=== PATIENT | female | born 1960 | race Caucasian/White ===

== ENCOUNTER 2018-11-24 21:20 | Inpatient (IN) | payer OTHER ==
[2018-11-24] MEDS ORDERED: ASPIRIN 81 MG CHEWABLE TABLETS PO ONE (21:45)
--- NOTE | 2018-11-24 21:55 | PDOC ---
History of Present Illness - General Chief Complaint: Shortness of Breath Stated Complaint: SOB Time Seen by Provider: 11/24/18 21:43 - History of Present Illness Initial Comments: 58 year old female with history of "tachycardia" presenting with sudden onset shortness of breath and respiratory difficulty of sudden onset 30 minutes before presentation. Patient is from [facility] visiting for the past month and had no issues all day until these symptoms started. According to friend at bedside she began breathing rapidly and having palpitations. Denies any pain anywhere but kept clutching her epigastric region on exam. She has family members with heart problems but is not sure which ones. The only medication she is on is sedoxil (Mexazolam) for her "tachcyardia". Denies any recent fevers, chills nausea vomiting diarrhea or other symptoms. 11/24/18 21:50 Past History - Past Medical History Allergies/Adverse Reactions: Allergies Allergy/AdvReac Type Severity Reaction Status Date / Time No Known Allergies Allergy Verified 11/24/18 21:41 - Suicide/Smoking/Psychosocial Hx Smoking History: Never smoked Have you smoked in the past 12 months: No Information on smoking cessation initiated: No Hx Alcohol Use: No Drug/Substance Use Hx: No Review of Systems - Review of Systems Able to Perform ROS?: No (Acutel yin distress) *Physical Exam - Vital Signs Last Vital Signs Temp Pulse Resp BP Pulse Ox 96.0 F L 154 H 32 H 154/105 H 98 11/24/18 21:20 11/24/18 21:20 11/24/18 21:20 11/24/18 21:20 11/24/18 21:40 - Physical Exam General Appearance: Yes: Nourished, Appropriately Dressed, Apparent Distress, Moderate Distress (moderate respiratory distress) HEENT: positive: EOMI, FRANCIE. negative: Normal ENT Inspection (erythematous maxillay skin with central pallor on the nose and face), Normal Voice ( difficulty breathing acutely) Neck: positive: Trachea midline, Normal Thyroid, Supple. negative: Tender, Rigid Respiratory/Chest: positive: Respiratory Distress, Accessory Muscle Use, Labored Respiration, Rapid RR, Crackles. negative: Chest Tender, Lungs Clear, Normal Breath Sounds Cardiovascular: positive: Regular Rhythm, Tachycardia. negative: Regular Rate Gastrointestinal/Abdominal: positive: Normal Bowel Sounds, Flat, Soft. negative : Tender Lymphatic: negative: Adenopathy, Tenderness Musculoskeletal: positive: Normal Inspection. negative: Decreased Range of Motion Extremity: positive: Normal Capillary Refill, Normal Inspection, Normal Range of Motion. negative: Tender Integumentary: positive: Normal Color, Dry, Warm Neurologic: positive: Fully Oriented, Alert, Normal Mood/Affect, Normal Response , Motor Strength 5/5 Moderate Sedation - Procedure Monitoring Vital Signs: Procedure Monitoring Vital Signs Temperature 96.0 F L 11/24/18 21:20 Pulse Rate 154 H 11/24/18 21:20 Respiratory Rate 32 H 11/24/18 21:20 Blood Pressure 154/105 H 11/24/18 21:20 O2 Sat by Pulse Oximetry (%) 98 11/24/18 21:40 ED Treatment Course - RADIOLOGY Radiology Studies Ordered: Category Date Time Status CHEST X-RAY PORTABLE* [RAD] Stat Radiology 11/24/18 21:43 Ordered Medical Decision Making - Medical Decision Making Patianita with sudden onset SOB, dyspnea, bilateral crackles, hypoxic to 79 on 15 L NC, hypertensive to 190s systolic. Niraj was BiPaped within 15 minutes of presenting got BiPaped and immediately improved her O2 to upper 90s and decreased pressure to 140s systolic. CXR demonstrating fluid overload, will give 40 IV lasix. Patient signed out to Dr. Booker in stable condition pending admission to ICU likely. 11/24/18 22:15 *DC/Admit/Observation/Transfer Diagnosis at time of Disposition: Acute respiratory failure with hypoxia Acute CHF Qualifiers: Heart failure type: unspecified Qualified Code(s): I50.9 - Heart failure, unspecified - Discharge Dispostion Condition at time of disposition: Guarded Decision to Admit order: Yes - Referrals - Patient Instructions - Post Discharge Activity
[2018-11-24] MEDS ORDERED: ASPIRIN 81 MG CHEWABLE TABLETS ONE (22:24)
--- NOTE | 2018-11-24 22:25 | PDOC ---
*Physical Exam - Vital Signs Last Vital Signs Temp Pulse Resp BP Pulse Ox 97.6 F 154 H 32 H 154/105 H 98 11/24/18 22:01 11/24/18 21:20 11/24/18 21:20 11/24/18 21:20 11/24/18 21:40 ED Treatment Course - LABORATORY CBC & Chemistry Diagram: 11/24/18 22:22 11/24/18 22:22 Medical Decision Making - Medical Decision Making 11/24/18 22:25 The patient was signed out to me by Dr. Fernandez, day team. The patient is a 67F with a PMH of anxiety who presents to the ER with SOB, noted to be tachycardic. Concern for CHF. Pt currently on bipap but remains tachycardic. Initial BP in 190's, currently 130-140. Will admit after CMP is repeated. 11/24/18 23:48 Trop 0.17, likely 2/2 to demand. BNP elevated. D-dimer in 1999's, likely 2/2 CHF exacerbation. Pt endorsed to Dr. Pacheco for admission. *DC/Admit/Observation/Transfer Diagnosis at time of Disposition: Acute respiratory failure with hypoxia Acute CHF Qualifiers: Heart failure type: unspecified Qualified Code(s): I50.9 - Heart failure, unspecified - Discharge Dispostion Condition at time of disposition: Guarded Decision to Admit order: Yes - Referrals - Patient Instructions - Post Discharge Activity
[2018-11-24] MEDS ORDERED: FUROSEMIDE 40 MG/4 ML INJECTABLE VIAL IVPUSH ONE (22:29)
--- NOTE | 2018-11-24 22:32 | PDOC ---
Attending Attestation - [facility] HPI: 11/24/18 23:18 The patient is a 58 year old female with no significant past medical history who presents to the emergency department with a sudden onset of shortness of breath today. The patient reports that she is visiting from [place] and, today she came in secondary to a sudden onset of respiratory distress. The patient was placed on bipap on arrival to the ED. Prior medical history could not be recorded secondary to patient condition. Documentation prepared by Zacarias Rojas, acting as medical insurance verifier for Orly Genao MD. - Physicial Exam PE: 11/24/18 23:18 GENERAL:(+)anxious and is respiratory distress, Hypoxic (80s), cannot breathe Well developed, well nourished. Awake and alert. HEENT: Normocephalic, atraumatic. PERRLA, EOMI. No conjunctival pallor. Sclera are non- icteric. Moist mucous membranes. Oropharynx is clear. NECK: Supple. Full ROM. No JVD. Carotid pulses 2+ and symmetric, without bruits. No thyromegaly. No lymphadenopathy. CARDIOVASCULAR:(+)tachy 140s Regular rhythm. No murmurs, rubs, or gallops. Distal pulses are 2+ and symmetric. PULMONARY: (+)crackles and rales bilaterally. No wheezing, rales or rhonchi. ABDOMINAL: Soft. Non-tender. Non-distended. No rebound or guarding. No organomegaly. Normoactive bowel sounds. MUSCULOSKELETAL Normal range of motion at all joints. No bony deformities or tenderness. No CVA tenderness. EXTREMITIES: No cyanosis. No clubbing. No edema. No calf tenderness. SKIN: Warm and dry. Normal capillary refill. No rashes. No jaundice. NEUROLOGICAL: Alert, awake, appropriate. Cranial nerves 2-12 intact. No deficits to light touch and temperature in face, upper extremities and lower extremities. No motor deficits in the in face, upper extremities and lower extremities. Normoreflexic in the upper and lower extremities. Normal speech. Toes are down- going bilaterally. Gait is normal without ataxia. PSYCHIATRIC: Cooperative. Good eye contact. Appropriate mood and affect. - Critical Care Time Total Critical Care Time: 60 Critical Care Statement: The care of this patient involved high complexity decision making to prevent further life threatening deterioration of the patient 's condition and/or to evaluate & treat vital organ system(s) failure or risk of failure. <Zacarias Rojas - Last Filed: 11/24/18 23:18> - Resident Resident Name: Dillan Fernandez - ED Attending Attestation I have performed the following: I have examined & evaluated the patient, The case was reviewed & discussed with the resident, I agree w/resident's findings & plan, Exceptions are as noted - HPI HPI: 11/24/18 22:31 58-year-old female visiting from [place] experienced a sudden shortness breath with acute respiratory distress and was quickly placed on BiPAP after coming to the emergency department Normocephalic/atraumatic. Neck supple Lungs ++,rales crackles CVS tachycardia Abdomen soft Extremities no pitting edema, no clubbing, no cyanosis. Skin warm and dry. Neuro she is alert and oriented 3, moving all extremities. Psych slightly anxious - Medical Decision Making 11/24/18 23:33 This 58 yo female flew from [facility] this Friday and dev sudden respiratory distress this evening and presented hypoxic and tachypnic Patient states she doesn't have any significant medical history except an episode of tachycardia 2 months ago and [place]. She states that at time she saw a heart doctor History of smoking cigarettes for about 45 years. Past surgical history none The patient was in resp distress with rales and placed on BiPAP immediately upon arrival. Her symptoms greatly improved and She was able to converse and answer questions appropriately pt to be admitted to tele 11/25/18 01:16 trop 0.17, will repeat dimer >4000 and will r/o PE with cta of chest 11/25/18 01:18 repeat ekg is 104 bpm with pvc 11/25/18 02:23 cta chest NEGATIVE FOR PE however there are infiltrates,congestion <Orly Genao - Last Filed: 11/25/18 02:29>
[2018-11-24 22:34] LABS: CARBOXYHEMOGLOBIN 1.7 gm% (0.5-2.0)
[2018-11-24 22:46] LABS: BASO % 0.8 % (0-2.0); HEMATOCRIT 39.9 % (32.4-45.2); HEMOGLOBIN 13.5 GM/dL (10.7-15.3); LYMPH % 28.2 % (8-40); MCH 31.1 pg (25.7-33.7); MCHC 33.8 g/dl (32.0-36.0); MEAN CELL VOLUME 92.1 fl (80-96); MEAN PLT VOLUME 10.9 fl (7.5-11.1); PLATELET COUNT 268 K/MM3 (134-434); RBC 4.33 M/mm3 (3.60-5.2); RDW 15.7 % (11.6-15.6); WHITE BLOOD COUNT 7.5 K/mm3 (4.0-10.0)
[2018-11-24 23:16] LABS: ARTERIAL BLD GAS O2 SATURATION 98.1 % (90-98.9); ARTERIAL BLOOD GAS BASE EXCESS -8.5 meq/l (-2-2); ARTERIAL BLOOD GAS PCO2 35.9 mmHg (35-45); ARTERIAL BLOOD GAS pH 7.29 (7.35-7.45)
[2018-11-24 23:20] LABS: INR 1.17 (0.83-1.09); PROTHROMBIN TIME (PATIENT) 13.8 SEC (9.7-13.0)
[2018-11-24 23:22] LABS: ALBUMIN 3.5 g/dl (3.4-5.0); ALK PHOS 150 U/L (45-117); ANION GAP 13 MMOL/L (8-16); BILIRUBIN,TOTAL 0.3 mg/dL (0.2-1); BLOOD UREA NITROGEN 23 mg/dL (7-18); CALCIUM 8.3 mg/dL (8.5-10.1); CHLORIDE 107 mmol/L (98-107); CO2 20 mmol/L (21-32); CREATININE 1.2 mg/dL (0.55-1.3); GLUCOSE,RANDOM 226 mg/dL (74-106); MAGNESIUM 1.9 mg/dL (1.8-2.4); N-TERMINAL BNP 4451.6 pg/ml (5-125); PHOSPHOROUS 6.2 mg/dL (2.5-4.9); POTASSIUM 3.8 mmol/L (3.5-5.1); SGOT/AST 132 U/L (15-37); SGPT/ALT 96 U/L (13-61); SODIUM 140 mmol/L (136-145); TOT PROT 6.8 g/dl (6.4-8.2)
[2018-11-24] MEDS ORDERED: FUROSEMIDE 40 MG/4 ML INJECTABLE VIAL ONE (23:24)
[2018-11-25] MEDS ORDERED: FUROSEMIDE 40 MG/4 ML INJECTABLE VIAL IVPUSH ONE (00:49)
--- NOTE | 2018-11-25 01:18 | HP ---
CHIEF COMPLAINT: SOB PCP: none HISTORY OF PRESENT ILLNESS: The patient is a 58 yo brazilian speaking f w/ PMH "tachycardia" who comes into the ED c/o a 2 day history of SOB. The patient recently came to the from [place] for vacation this past Friday. Last night, the patient experienced an acute onset of SOB associated with palpitations. These symptoms became progressively worse overnight and into today, which prompted her to come into the ER for evaluation. The patient had a similar episode of this SOB approx. 1 month ago in [place]. At that time, she went to see a escrow secretary, who evaluated her and told her everything was normal. The patient does not recall which tests were done at that time and was not started on any new medications. Patient takes Mexazolam for her "tachycardia" and no other medications. Patient denies chest pain, diaphoresis, abdominal pain, fever, chills. In the ED, patient was found to be in severe respiratory distress and was placed on BIpap. EKG sowed sinus tachycardia at 133 w/ St depressions and t wave inversions. No previous EKGs exist for comparison. Trop was .17, BNP was 4451, DDimer was 2082. 20mg Lasix IV was given with approx. 350cc output. The above history was obtained with assistance of the patient's friend at bedside and [employer] senior devops engineer #[id number] Recent Travel: see HPI PAST MEDICAL HISTORY: see HPI PAST SURGICAL HISTORY: Right knee surgery for OA Social History: Smokin year smoker Alcohol: denies Drugs: denies Family History: Multiple family members with heart problems, details unknown Allergies No Known Allergies Allergy (Verified 11/24/18 21:41) HOME MEDICATIONS: Home Medications Medication Instructions Recorded Unobtainable 11/24/18 REVIEW OF SYSTEMS CONSTITUTIONAL: Absent: fever, chills, diaphoresis, generalized weakness, malaise, loss of appetite, weight change HEENT: Absent: rhinorrhea, nasal congestion, throat pain, throat swelling, difficulty swallowing, mouth swelling, ear pain, eye pain, visual changes CARDIOVASCULAR: Absent: chest pain, syncope, palpitations, irregular heart rate, lightheadedness , peripheral edema RESPIRATORY: Absent: dyspnea with exertion, orthopnea, wheezing, stridor, hemoptysis GASTROINTESTINAL: Absent: abdominal pain, abdominal distension, nausea, vomiting, diarrhea, constipation, melena, hematochezia GENITOURINARY: Absent: dysuria, frequency, urgency, hesitancy, hematuria, flank pain, genital pain MUSCULOSKELETAL: Absent: myalgia, arthralgia, joint swelling, back pain, neck pain SKIN: Absent: rash, itching, pallor HEMATOLOGIC/IMMUNOLOGIC: Absent: easy bleeding, easy bruising, lymphadenopathy, frequent infections ENDOCRINE: Absent: unexplained weight gain, unexplained weight loss, heat intolerance, cold intolerance NEUROLOGIC: Absent: headache, focal weakness or paresthesias, dizziness, unsteady gait, seizure, mental status changes, bladder or bowel incontinence PSYCHIATRIC: Absent: anxiety, depression, suicidal or homicidal ideation, hallucinations. PHYSICAL EXAMINATION Vital Signs - 24 hr 11/24/18 11/24/18 11/24/18 21:20 21:40 22:01 Temperature 96.0 F L 97.6 F Pulse Rate 154 H Respiratory 32 H Rate Blood Pressure 154/105 H O2 Sat by Pulse 88 L 98 Oximetry (%) 11/25/18 00:14 Temperature Pulse Rate Respiratory Rate Blood Pressure O2 Sat by Pulse 100 Oximetry (%) GENERAL: Awake, alert, and fully oriented, in no acute distress. Pt on BiPap HEAD: Normal with no signs of trauma. EYES: Pupils equal, round and reactive to light, extraocular movements intact, sclera anicteric, conjunctiva clear. No lid lag. EARS, NOSE, THROAT: Ears normal, nares patent, oropharynx clear without exudates. Moist mucous membranes. NECK: Normal range of motion, supple without lymphadenopathy, JVD, or masses. LUNGS: There are decreased breath sounds in the mid lung martin and bases as well as crackles at the bases. HEART: Regular rate and rhythm, normal S1 and S2 without murmur, rub or gallop. ABDOMEN: Soft, nontender, not distended, normoactive bowel sounds, no guarding, no rebound, no masses. No hepatomegaly or splenomegaly. LOWER EXTREMITIES: 2+ pulses, warm, well-perfused. No calf tenderness. No peripheral edema. NEUROLOGICAL: Cranial nerves II-X intact. Normal speech. SKIN: Warm, dry, normal turgor, no rashes or lesions noted, normal capillary refill. Laboratory Results - last 24 hr 11/24/18 11/24/18 11/24/18 21:44 22:12 22:22 WBC 7.5 RBC 4.33 Hgb 13.5 Hct 39.9 MCV 92.1 MCH 31.1 MCHC 33.8 RDW 15.7 H Plt Count 268 MPV 10.9 Absolute Neuts (auto) 4.9 Neutrophils % 65.0 Lymphocytes % 28.2 Monocytes % 4.0 Eosinophils % 2.0 Basophils % 0.8 Nucleated RBC % 0 PT with INR INR D-Dimer Anticoagulation Therapy No Result Required. Puncture Site Left radial ABG pH 7.29 L ABG pCO2 at Pt Temp 35.9 ABG pO2 at Pt Temp 128.0 H ABG HCO3 16.8 L ABG O2 Sat (Measured) 98.1 ABG O2 Content 17.6 ABG Base Excess -8.5 L Vitaliy Test No Result Required. Carboxyhemoglobin 1.7 Methemoglobin 0.0 L O2 Delivery Device Bipap Oxygen Flow Rate 100% Vent Mode S/t Vent Rate No Result Required. Mechanical Rate No Result Required. Pressure Support Vent No Result Required. Sodium Potassium Chloride Carbon Dioxide Anion Gap BUN Creatinine Creat Clearance w eGFR Random Glucose Calcium Phosphorus Magnesium Total Bilirubin AST ALT Alkaline Phosphatase Troponin I B-Natriuretic Peptide Total Protein Albumin 11/24/18 11/24/18 11/24/18 22:22 22:22 22:22 WBC RBC Hgb Hct MCV MCH MCHC RDW Plt Count MPV Absolute Neuts (auto) Neutrophils % Lymphocytes % Monocytes % Eosinophils % Basophils % Nucleated RBC % PT with INR 13.80 H INR 1.17 H D-Dimer 2082 H Anticoagulation Therapy Puncture Site ABG pH ABG pCO2 at Pt Temp ABG pO2 at Pt Temp ABG HCO3 ABG O2 Sat (Measured) ABG O2 Content ABG Base Excess Vitaliy Test Carboxyhemoglobin Methemoglobin O2 Delivery Device Oxygen Flow Rate Vent Mode Vent Rate Mechanical Rate Pressure Support Vent Sodium 140 Potassium 3.8 Chloride 107 Carbon Dioxide 20 L Anion Gap 13 BUN 23 H Creatinine 1.2 Creat Clearance w eGFR 45.98 Random Glucose 226 H Calcium 8.3 L Phosphorus 6.2 H Magnesium 1.9 Total Bilirubin 0.3 AST 132 H ALT 96 H Alkaline Phosphatase 150 H Troponin I 0.17 H B-Natriuretic Peptide 4451.6 H Total Protein 6.8 Albumin 3.5 ASSESSMENT/PLAN: The patient is a 58 yo f w/ PMH tachycardia who comes into the the ED c/o acute onset SOB and palpitations. #SOB and palpitations; etiology unclear at this time. Possible PE vs ACS vs CHF -pt taken off BiPap during interview, saturating ~92 on 3LNC -Patient recently on flight from [place] and p/w hypoxia and tachycardia w/ positive D-Dimer; suspicious for PE -STAT CTA ordered; prelim read shows no PE, but ground glass opacities c/w congestion -first trop .17 in ED. EKG at that time tachy with ST/T changes -rpt EKG shows slower rate with similar ST/T changes -Trend trop/EKG to r/o ACS -echo in AM to eval for CHF -Patient mildly improved w/ 20mg lasix; will diurese further with 40mg lasix IV and monitor response by Vincent -Patient appears to have flash pulmonary edema based of of presentation, CXR and lack of pedal edema on exam; this could either be due to PE or acute NM. Since confirmatory tests pending, will treat empirically with heparin GTT at this time. -Cards, Pulm consult in AM #elevated creatinine, elevated phos and random glucose 226 concerning for DM -will obtain A1c -BGM, ISS ACHS for now #elevated BP on arrival likely 2/2 stress/SOB -improved after oxygenation and Lasix #FEN -no fluids indicated -lytes as above; replete PRN -sodium controlled diet #Prophy -Heparin GTT #dispo -admit tele Visit type - Emergency Visit Emergency Visit: Yes ED Registration Date: 11/24/18 Care time: The patient presented to the Emergency Department on the above date and was hospitalized for further evaluation of their emergent condition. - New Patient This patient is new to me today: Yes Date on this admission: 11/25/18 - Critical Care Critical Care patient: No
--- NOTE | 2018-11-25 01:20 | PN ---
Teaching Attending Note Name of Resident: Josias Pacheco ATTENDING PHYSICIAN STATEMENT I saw and evaluated the patient. I reviewed the resident's note and discussed the case with the resident. I agree with the resident's findings and plan as documented. SUBJECTIVE: Patient is a 58 year old woman with PMH of "tachycardia" presenting with sudden onset shortness of breath and respiratory difficulty of sudden onset 30 minutes before presentation. Patient is from [facility] for the past month and had no issues all day until these symptoms started. According to friend at bedside she began breathing rapidly and having palpitations. Denies any pain anywhere but kept clutching her epigastric region on exam. She has family members with heart problems but is not sure which ones. The only medication she is on is sedoxil (Mexazolam) for her "tachcyardia". Denies any recent fevers, chills nausea vomiting diarrhea or other symptoms. On arrival in the ER her pulse was 154 and based on respiratory distress, she was started on Bipap. By the time i saw her her HR was down to less than 90 and she was no longer in respiratory distress so Bipap is being stopped. OBJECTIVE: Alert Vital Signs Period Temp Pulse Resp BP Sys/Jeffries Pulse Ox Last 24 Hr 96.0 F-97.6 F 154 32 154/105 88-100 HEENT: No Jaundice, eye redness or discharge, PERRLA, EOMI. Normocephalic, atraumatic. External ears are normal and hearing is grossly intact. No nasal discharge. Neck: Supple, nontender. No palpable adenopathy or thyromegaly. No JVD Chest: Good effort. Diffuse rhonchi. Clear to percussion. Heart: Regular. No S3, rub or murmur Abdomen: Not distended, soft, nontender and no HSM. No rebound or guarding. Normoactive bowel sounds. Ext: Peripheral pulses intact. No leg edema. Skin: Warm and dry. No petechiae, rash or ecchymosis. Neuro: Alert. Oriented x3. CN 2-12 grossly intact. Sensation grossly intact in all four extremities and DTR are symmetric. Home Medications Medication Instructions Recorded Unobtainable 11/24/18 Abnormal Lab Results 11/24/18 11/24/18 11/24/18 21:44 22:12 22:22 RDW 15.7 H PT with INR INR D-Dimer ABG pH 7.29 L ABG pO2 at Pt Temp 128.0 H ABG HCO3 16.8 L ABG Base Excess -8.5 L Methemoglobin 0.0 L Carbon Dioxide BUN Random Glucose Calcium Phosphorus AST ALT Alkaline Phosphatase Troponin I B-Natriuretic Peptide 11/24/18 11/24/18 11/24/18 22:22 22:22 22:22 RDW PT with INR 13.80 H INR 1.17 H D-Dimer 2082 H ABG pH ABG pO2 at Pt Temp ABG HCO3 ABG Base Excess Methemoglobin Carbon Dioxide 20 L BUN 23 H Random Glucose 226 H Calcium 8.3 L Phosphorus 6.2 H AST 132 H ALT 96 H Alkaline Phosphatase 150 H Troponin I 0.17 H B-Natriuretic Peptide 4451.6 H ASSESSMENT AND PLAN: 1. Respiratory failure - CXR shows bilateral fluffy infiltrates and cardiomegaly. Initial EKG shows sinus tachycardia with ST depression in leads III, aVF, V5 and 6. Findings suggest flash pulmonary edema due acute CHF, acute KS or PE. She made about 400 ml of urine with 20 mg of IV lasix. Now comfortable off Bipap on nasal canula oxygen. Will repeat EKG, trend troponin, check TFT, get CTPA and give 40 mg of IV lasix (monitor urine output) and get ECHO. Admit to telemetry to rule out ACS. Will do tests to rule out underlying DM (HbA1c) and CKD (kidney sonogram, PTH, urine protein) and repeat phosphate level. If hyperphosphatemia persists, will give phosphate binder. Urinalysis pending. 2. DVT prophylaxis - Heparin 5000u sq tid. 3. Advance directives - Full code
[2018-11-25] MEDS ORDERED: FUROSEMIDE 40 MG/4 ML INJECTABLE VIAL ONE ×2 (01:24→10:31)
[2018-11-25] MEDS ORDERED: HEPARIN NA (PORCINE) 5,000 UNITS/ML 1ML VIAL IVPUSH PRN ×6 (02:14→14:06)
[2018-11-25] MEDS ORDERED: HEPARIN - 25,000 UNIT in SODIUM CHLORIDE 495 ML IV SCH ×2 (02:15→03:00)
[2018-11-25] MEDS ORDERED: HEPARIN INFUSION - 25,000 UNITS/500 ML INFUS.BAG IVPB ONE (03:19)
[2018-11-25 04:35] LABS: URINE APPEARANCE CLEAR; URINE BILIRUBIN NEGATIVE (<2.0 mg/dL); URINE COLOR COLORLESS; URINE GLUCOSE (UA) NEGATIVE (NEGATIVE); URINE KETONE NEGATIVE (NEGATIVE); URINE LEUK ESTERASE TRACE (NEGATIVE); URINE NITRITE NEGATIVE (NEGATIVE); URINE PROTEIN NEGATIVE (NEGATIVE); URINE UROBILINOGEN NEGATIVE mg/dL (0.2-1.0)
[2018-11-25 04:37] LABS: URINE MUCUS RARE
[2018-11-25] MEDS ORDERED: HEPARIN SOD,PORK IN 0.45% NACL 25,000 UNITS/500 ML INFUS.BAG IVPB SCH (04:48)
[2018-11-25] MEDS ORDERED: ATORVASTATIN CA 80 MG TABLET (FP) PO ONE (05:20)
[2018-11-25] MEDS ORDERED: CLOPIDOGREL BISULFATE 300 MG TABLET PO ONE (05:21)
[2018-11-25 05:59] LABS: HEMOGLOBIN 13.7 GM/dL (10.7-15.3); MCH 31.4 pg (25.7-33.7); MEAN CELL VOLUME 89.6 fl (80-96); MEAN PLT VOLUME 10.2 fl (7.5-11.1); PLATELET COUNT 254 K/MM3 (134-434); RBC 4.35 M/mm3 (3.60-5.2); RDW 14.9 % (11.6-15.6); WHITE BLOOD COUNT 9.3 K/mm3 (4.0-10.0)
[2018-11-25] MEDS ORDERED: HEPARIN NA (PORCINE) 5,000 UNITS/ML 1ML VIAL SQ SCH (06:00)
[2018-11-25 06:10] LABS: INR 1.19 (0.83-1.09); PROTHROMBIN TIME (PATIENT) 14.1 SEC (9.7-13.0)
[2018-11-25 06:13] LABS: ACTIVATED PTT 50.4 SECONDS (25.2-36.5)
[2018-11-25 06:19] LABS: ANION GAP 10 MMOL/L (8-16); BLOOD UREA NITROGEN 19 mg/dL (7-18); CALCIUM 8.7 mg/dL (8.5-10.1); CHLORIDE 104 mmol/L (98-107); CO2 27 mmol/L (21-32); CREATININE 0.8 mg/dL (0.55-1.3); GLUCOSE,RANDOM 103 mg/dL (74-106); MAGNESIUM 1.9 mg/dL (1.8-2.4); PHOSPHOROUS 4.6 mg/dL (2.5-4.9); POTASSIUM 3.5 mmol/L (3.5-5.1); SODIUM 141 mmol/L (136-145)
[2018-11-25] MEDS ORDERED: CLOPIDOGREL BISULFATE 300 MG TABLET ONE (06:20)
[2018-11-25] MEDS ORDERED: HEPARIN INFUSION - 25,000 UNITS/500 ML INFUS.BAG IVPB SCH (06:30)
--- NOTE | 2018-11-25 10:23 | CON.CARD ---
Consult Consult Specialty:: Cardiology - History of Present Illness History of Present Illness: 58 year old female with history of "tachycardia" presenting with sudden onset shortness of breath and respiratory difficulty of sudden onset 30 minutes before presentation. Patient is from [facility] for the past month and had no issues all day until these symptoms started. According to friend at bedside she began breathing rapidly and having palpitations. Denies any pain anywhere but kept clutching her epigastric region on exam. She has family members with heart problems but is not sure which ones. The only medication she is on is sedoxil (Mexazolam) for her "tachcyardia". Denies any recent fevers, chills nausea vomiting diarrhea or other symptoms. 11/24/18 21:50 - History Source History Provided By: Patient, Family Member, Medical Record - Alcohol/Substance Use Hx Alcohol Use: No - Smoking History Smoking history: Never smoked Have you smoked in the past 12 months: No Home Medications - Allergies Allergies/Adverse Reactions: Allergies Allergy/AdvReac Type Severity Reaction Status Date / Time No Known Allergies Allergy Verified 11/24/18 21:41 - Home Medications Home Medications: Ambulatory Orders Omeprazole 40 mg PO BID 11/25/18 Review of Systems - Review of Systems Constitutional: reports: No Symptoms Eyes: reports: No Symptoms HENT: reports: No Symptoms Neck: reports: No Symptoms Cardiovascular: reports: Chest Pain Gastrointestinal: reports: No Symptoms Genitourinary: reports: No Symptoms Breasts: reports: No Symptoms Reported Musculoskeletal: reports: No Symptoms Integumentary: reports: No Symptoms Neurological: reports: No Symptoms Endocrine: reports: No Symptoms Hematology/Lymphatic: reports: No Symptoms Psychiatric: reports: No Symptoms Vital Signs: Vital Signs Temperature 98.7 F 11/25/18 08:59 Pulse Rate 90 11/25/18 08:59 Respiratory Rate 18 11/25/18 08:59 Blood Pressure 127/92 11/25/18 08:59 O2 Sat by Pulse Oximetry (%) 96 11/25/18 08:59 Constitutional: Yes: Well Nourished, No Distress, Calm Eyes: Yes: WNL, Conjunctiva Clear, EOM Intact HENT: Yes: WNL, Atraumatic, Normocephalic Neck: Yes: WNL, Supple, Trachea Midline Respiratory: Yes: WNL, Regular, CTA Bilaterally Gastrointestinal: Yes: WNL, Normal Bowel Sounds Renal/: Yes: WNL Cardiovascular: Yes: WNL, Regular Rate and Rhythm Musculoskeletal: Yes: WNL Extremities: Yes: WNL Integumentary: Yes: WNL Neurological: Yes: WNL, Alert, Oriented ...Motor Strength: WNL Psychiatric: Yes: WNL, Alert, Oriented - Other Data Labs, Other Data: CBC, BMP 11/25/18 05:20 11/25/18 05:20 INR, PTT INR 1.19 (0.83-1.09) H 11/25/18 05:20 Troponin, BNP 11/24/18 11/25/18 22:22 04:25 Troponin I 0.17 H 0.66 H* B-Natriuretic Peptide 4451.6 H Troponin, BNP 11/24/18 11/25/18 22:22 04:25 Troponin I 0.17 H 0.66 H* B-Natriuretic Peptide 4451.6 H Imaging - Results Chest X-ray: Image Reviewed (chf) EKG: Image Reviewed (s tach lvh rep abn) Problem List - Problems (1) Acute CHF Code(s): I50.9 - HEART FAILURE, UNSPECIFIED Qualifiers: Heart failure type: unspecified Qualified Code(s): I50.9 - Heart failure, unspecified (2) Acute respiratory failure with hypoxia Code(s): J96.01 - ACUTE RESPIRATORY FAILURE WITH HYPOXIA Assessment/Plan acute exacerbation of systolic heart failure -newly diagnosed CMP ? hypertensive? ischemic? ECHO showed severely reduced ef , possible LV apex thrombus ?nonstemi -TNI's elevated most likely due to cardiomyopathy htn neg CTA for PE plan agree with plavix asa, heparin lasix add LEONEL I cont trending enzymes and ekg introduce low dose of BB e.g Coreg 3.125 BID when euvolemic.
[2018-11-25] MEDS ORDERED: ASPIRIN COATED 81 MG TABLET.EC ONE (10:30)
--- NOTE | 2018-11-25 10:47 | PN ---
Physical Exam: SUBJECTIVE: Patient seen and examined at bedside. No acute events overnight. OBJECTIVE: Vital Signs Temperature 98.7 F 11/25/18 08:59 Pulse Rate 90 11/25/18 08:59 Respiratory Rate 18 11/25/18 08:59 Blood Pressure 127/92 11/25/18 08:59 O2 Sat by Pulse Oximetry (%) 96 11/25/18 08:59 GENERAL: AAOx3. Grenadian-speaking. NAD. Resting comfortably. HEENT: AT/NC. EOMI. FRANCIE. Moist mucus membranes. NECK: Normal range of motion, supple without lymphadenopathy, JVD, or masses. LUNGS: CTA B/L. No wheezes noted. HEART: Regular rate and rhythm, normal S1 and S2 without murmur, rub or gallop. ABDOMEN: Soft, nontender, not distended, normoactive bowel sounds, no guarding, no rebound, no masses. No hepatomegaly or splenomegaly. LOWER EXTREMITIES: 2+ pulses, warm, well-perfused. No calf tenderness. No peripheral edema. NEUROLOGICAL: Cranial nerves II-X intact. Normal speech. SKIN: Warm, dry, normal turgor, no rashes or lesions noted, normal capillary refill. CBCD WBC 9.3 K/mm3 (4.0-10.0) 11/25/18 05:20 RBC 4.35 M/mm3 (3.60-5.2) 11/25/18 05:20 Hgb 13.7 GM/dL (10.7-15.3) 11/25/18 05:20 Hct 39.0 % (32.4-45.2) 11/25/18 05:20 MCV 89.6 fl (80-96) 11/25/18 05:20 MCHC 35.0 g/dl (32.0-36.0) 11/25/18 05:20 RDW 14.9 % (11.6-15.6) 11/25/18 05:20 Plt Count 254 K/MM3 (134-434) 11/25/18 05:20 MPV 10.2 fl (7.5-11.1) 11/25/18 05:20 CMP Sodium 141 mmol/L (136-145) 11/25/18 05:20 Potassium 3.5 mmol/L (3.5-5.1) 11/25/18 05:20 Chloride 104 mmol/L (98-107) 11/25/18 05:20 Carbon Dioxide 27 mmol/L (21-32) 11/25/18 05:20 Anion Gap 10 MMOL/L (8-16) 11/25/18 05:20 BUN 19 mg/dL (7-18) H 11/25/18 05:20 Creatinine 0.8 mg/dL (0.55-1.3) 11/25/18 05:20 Creat Clearance w eGFR > 60 (>60) 11/25/18 05:20 Calcium 8.7 mg/dL (8.5-10.1) 11/25/18 05:20 Total Bilirubin 0.3 mg/dL (0.2-1) 11/24/18 22:22 AST 132 U/L (15-37) H 11/24/18 22:22 ALT 96 U/L (13-61) H 11/24/18 22:22 Alkaline Phosphatase 150 U/L (45-117) H 11/24/18 22:22 Total Protein 6.8 g/dl (6.4-8.2) 11/24/18 22:22 Albumin 3.5 g/dl (3.4-5.0) 11/24/18 22:22 Active Medications Aspirin (Ecotrin -) 81 mg PO DAILY ODALYS Atorvastatin Calcium (Lipitor -) 80 mg PO HS ODALYS Furosemide (Lasix Injection -) 40 mg IVPUSH DAILY ODALYS Heparin Sodium (Porcine) (Heparin -) 1,000 unit IVPUSH PRN PRN PRN Reason: Heparin Heparin Sodium (Porcine) (Heparin -) 5,000 unit IVPUSH PRN PRN PRN Reason: Heparin CONSULT: Cardio- Dr. Ruiz Pulm- Dr. Selby IMAGING: * ECHO (11/25/18): LV grossly normal size. LV sys fxn severely reduced. Severe global hypokinesis of LV. Regional wall motion abnormalities cannot be excluded due to limited visualization. Cannot exclude apical thrombus. LA is moderately dilated. RA size is normal. Atrial septum is aneurysmal. Insufficient TR detected to calculate RV sys pressure. Trace to mild MR. * CTA: No evid of PE. Cardiomegaly and patchy groundglass opacification c/w CHF. R pleural effusion and bibasilar consolidation/atelectasis. * CXR: Large heart w/ congestive changes and ? superimposed infiltrates. ASSESSMENT/PLAN: 58F w/ pmhx tachycardia who comes into the the ED c/o acute onset SOB and palpitations. #Acute systolic CHF exacerbation -ECHO noted above; LV sys fxn severely reduced with severe global hypokinesis of LV. -Cont ASA, Heparin drip (cannot exclude apical thrombus on ECHO), Lasix 40 IVP QD, Quinipril 5 PO QD -Per cardio, may start on Carvedilol 3.125 BID when pt is euvolemic. Pt will likely need cath in the future due to clinical condition as discussed with cardio. Potential need for NATALIE/Lifevest? Will discuss with cardio. -Mild elevated trop could be demand vs initial cardiac event, 0.17 > 0.66 > 0.63. EKG showed ST depression in lateral leads and J point elevation in anteroseptal leads and tachycardia. ST depression resolved with improvement in rate, but TWI is evident in lateral and inferior leads. #Acute Hypoxic Respiratory Failure 2/2 pulmonary edema -CTA showed no evid of PE -Cont to monitor, currently on 3L NC satting at 95%. -Per pulm, cont NIPPV if pt develops increased respiratory distress; cont Lasix and O2 #FEN -no fluids indicated -lytes as above; replete PRN -Cholesterol/Fat-controlled diet #Prophylaxis -Heparin GTT #dispo -monitor on tele Visit type - Emergency Visit Emergency Visit: Yes ED Registration Date: 11/24/18 Care time: The patient presented to the Emergency Department on the above date and was hospitalized for further evaluation of their emergent condition. - New Patient This patient is new to me today: Yes Date on this admission: 11/25/18 - Critical Care Critical Care patient: No
[2018-11-25] MEDS: ASPIRIN COATED 81 MG TABLET.EC PO SCH (11:00)
[2018-11-25] MEDS: FUROSEMIDE 40 MG/4 ML INJECTABLE VIAL IVPUSH SCH (11:01)
--- NOTE | 2018-11-25 11:38 | EKG ---
Test Reason : Blood Pressure : / mmHG Vent. Rate : 133 BPM Atrial Rate : 133 BPM P-R Int : 128 ms QRS Dur : 092 ms QT Int : 320 ms P-R-T Axes : 066 057 -62 degrees QTc Int : 476 ms SINUS TACHYCARDIA POSSIBLE LEFT ATRIAL ENLARGEMENT LEFT VENTRICULAR HYPERTROPHY ABNORMAL ECG WHEN COMPARED WITH ECG OF 24-NOV-2018 21:42, NO SIGNIFICANT CHANGE WAS FOUND Confirmed by KARAN AMADO, NEHEMIAS ([id number]) on 11/25/2018 11:38:12 AM Referred By: Confirmed By:NEHEMIAS RUSSO MD
--- NOTE | 2018-11-25 11:39 | EKG ---
Test Reason : Blood Pressure : / mmHG Vent. Rate : 104 BPM Atrial Rate : 104 BPM P-R Int : 122 ms QRS Dur : 090 ms QT Int : 382 ms P-R-T Axes : 076 045 112 degrees QTc Int : 502 ms POOR DATA QUALITY, INTERPRETATION MAY BE ADVERSELY AFFECTED SINUS TACHYCARDIA POSSIBLE LEFT ATRIAL ENLARGEMENT LEFT VENTRICULAR HYPERTROPHY T WAVE ABNORMALITY, CONSIDER LATERAL ISCHEMIA ABNORMAL ECG WHEN COMPARED WITH ECG OF 24-NOV-2018 21:45, ST NO LONGER ELEVATED IN ANTERIOR LEADS NONSPECIFIC T WAVE ABNORMALITY HAS REPLACED INVERTED T WAVES IN INFERIOR LEADS T WAVE INVERSION NOW EVIDENT IN ANTERIOR LEADS Confirmed by KARAN AMADO, NEHEMIAS ([id number]) on 11/25/2018 11:38:23 AM Referred By: Confirmed By:NEHEMIAS RUSSO MD
[2018-11-25] MEDS ORDERED: METOPROLOL TARTRATE 25 MG TABLET (FP) PO SCH (12:15)
[2018-11-25] MEDS ORDERED: risperiDONE 0.5 MG TABLET (FP) ONE (12:17)
--- NOTE | 2018-11-25 12:22 | ECHO ---
Name: CORAZON TIPTON SAMIR Exam:Adult Echocardiogram Study Date: 11/25/2018 08:15 AM Age: 58 yrs Reason For Study: Eval CHF Height: 65 in Weight: 150 lb BSA: 1.8 m2 MMode/2D Measurements & Calculations IVSd: 0.86 cm Ao root diam: 1.9 cm LVIDd: 5.0 cm ACS: 1.9 cm LVIDs: 4.3 cm LVPWd: 1.5 cm EDV(Teich): 120.0 ml RV S Seun: 9.9 cm/sec ESV(Teich): 83.9 ml Doppler Measurements & Calculations Med Peak E' Seun: 5.2 cm/sec Lat Peak E' Seun: 4.4 cm/sec Procedure A two-dimensional transthoracic echocardiogram with color flow and Doppler was performed. Left Ventricle The left ventricle is grossly normal size. Left ventricular systolic function is severely reduced. Th ere is severe global hypokinesis of the left ventricle. Regional wall motion abnormalities cannot be exclude d due to limited visualization. Thrombus can not be excluded. cannot exclude apical thrombus. Right Ventricle The right ventricle is normal in size and function. Atria The left atrium is moderately dilated. Right atrial size is normal. The atrial septum is aneurysmal. Mitral Valve There is mild mitral valve thickening. There is no mitral valve stenosis. There is trace to mild mitr al regurgitation. Tricuspid Valve There is mild tricuspid valve thickening. There is no tricuspid stenosis. There was insufficient TR d etected to calculate RV systolic pressure. Aortic Valve The aortic valve is not well visualized. No hemodynamically significant valvular aortic stenosis. No aortic regurgitation is present. Pulmonic Valve The pulmonic valve is not well visualized. Great Vessels The aortic root is normal size. Pericardium/Pleura There is no pericardial effusion. Interpretation Summary The left ventricle is grossly normal size. Left ventricular systolic function is severely reduced. There is severe global hypokinesis of the left ventricle. Regional wall motion abnormalities cannot be excluded due to limited visualization. Thrombus can not be excluded. cannot exclude apical thrombus. The left atrium is moderately dilated. Right atrial size is normal. The atrial septum is aneurysmal. There was insufficient TR detected to calculate RV systolic pressure. There is trace to mild mitral regurgitation. MD Evan Ruiz 11/25/2018 12:22 PM
--- NOTE | 2018-11-25 14:34 | PN ---
Progress Note (short form) - Note Progress Note: PULMONARY CONSULTATION DICTATED 11/25/18 IMP ACUTE HYPOXEMIC RESPIRATORY FAILURE ACUTE ON CHRONIC CHF SEVERE LV DYSFUNCTION CARDIOMYOPATHY ? SECONDARY CHRONIC TACHYCARDIA,ISCHEMIC ? APICAL THROMBUS NSTEMI + TROPONIN SMOKER PLAN LASIX O2 NIPPV IF DEVELOPES INCREASED RESPIRATORY DISTRESS DAILY WT F/U CHEST X-RAYS TREND TROPONINS RATE CONTROL DR CORTÉS
[2018-11-25] MEDS: QUINAPRIL HCL 5 MG TABLET (FP) PO SCH (14:37)
--- NOTE | 2018-11-25 15:00 | PN ---
Teaching Attending Note Name of Resident: Anoop Gastelum ATTENDING PHYSICIAN STATEMENT I saw and evaluated the patient. I reviewed the resident's note and discussed the case with the resident. I agree with the resident's findings and plan as documented. SUBJECTIVE No pain, feels better after the lasix. No CP . had mild chest pain in epigastric area, x 3 hours yesterday. OBJECTIVE: NAD CV : RRR, no MRG . + hepatojygular reflux. Lungs: CTAB Ext trace pitting edema ABd: soft, NT, ND , NL BS A/P : 58 y/o lady with h/o tachycardia, who presented who presented with SOB . She was found to have acute CHF exacerbation 1- Acute systolic CHF exacerbation : new onset. severely reduced EF on echo. ? ischemic vs NICM - cont lasix - ACEI added - mild elevation in trop could be demand vs iitial event. EKG with ST depression in lateral leads and J point elevation in anterioseptal leads and tachycardia. ST depression resolved with improvement in rate, but TWI is evident in lateral and inferior leads. - repeat EKG - cont heparin gtt per card due to possible apical thrombus - ? NATALIE . - need cath R and L - ? life vest 2- Acute hypoxic resp failure due to pulmnary edema No PE on CTA . No clinical evidence of PNA . 3- HLOC
--- NOTE | 2018-11-25 15:13 | CONS ---
DATE OF CONSULTATION: 11/25/2018 REFERRING PHYSICIAN: Elisha Gomez MD HISTORY: The patient is a 58-year-old female with a past medical history of tachycardia, longstanding history of tobacco use approximately 5-7 cigarettes daily admitted to [facility] with acute onset of shortness of breath. The patient currently resides in [place]. Apparently, she arrived on Friday prior to this admission, and last night she developed the acute onset of shortness of breath associated with cough nonproductive and chest pressure. Denied any nausea, vomiting, or diaphoresis. She also complained of having palpitations. She presented to the emergency room with the above. In the ER, she was noted to be tachycardic as well as hypertensive in marked respiratory distress. She was administered Lasix and and placed on BiPAP with good clinical response. She underwent a CTA of the chest, which revealed no evidence of pulmonary embolism. According to her daughter, patient has a history of tachycardia. Apparently, she had a workup a few months ago in [place] and was told her heart was normal except for persistent tachycardia. She complains over the past few months of increasing shortness of breath with exertion. She denies any fevers, weight loss, or night sweats. She denies any history of COPD or asthma. PAST MEDICAL HISTORY: Again includes tachycardia. SOCIAL HISTORY: Born in the [place] and currently resides in the [facility] [place]. History of tobacco, 5-7 cigarettes daily. No occupational exposures. REVIEW OF SYSTEMS: Positive dyspnea, positive orthopnea, positive chest pressure, positive cough. No fever, no chills, no abdominal pain, no lower extremity edema. CURRENT MEDICATIONS: Include Accupril, heparin, Lipitor, Lasix, Ecotrin. PHYSICAL EXAMINATION: General: The patient is a well-developed, well-nourished female currently awake and alert in no acute distress. Vital Signs: She is afebrile. Blood pressure 112/74, respiratory rate 20, O2 saturation 95% on 3 L. HEENT: Normocephalic and atraumatic. Neck: Supple. Heart: Tachycardic. S1, S2. Chest: Bibasilar crackles. Abdomen: Soft. Bowel sounds positive. Extremities: No cyanosis or edema. LABORATORIES: BUN 19, creatinine 0.8. Troponin 0.17. Was recently 0.63. Blood gas: PH 7.29, PCO2 of 35, PO2 of 128, bicarbonate of 16, saturation 98, INR 1.19. WBC 9.3, hemoglobin 13.7, hematocrit 39, platelet count 254,000. Chest x-ray: Cardiomegaly with congestive changes bilaterally. CTA of the chest, no PE. There is cardiomegaly and patchy ground glass opacification bilaterally and right pleural effusion. Echocardiogram reveals left ventricle normal in size. Left ventricular systolic function severely reduced. There is severe global hypokinesis of the left ventricle. Cannot exclude an apical thrombus. RV is normal. Left atrium moderately dilated. IMPRESSION: 1. Acute hypoxemic respiratory failure secondary to acute congestive heart failure. 2. Severe left ventricular dysfunction secondary to cardiomyopathy with severe left ventricular dysfunction possibly secondary to persistent tachycardia, possible ischemia. 3. Positive troponins likely non-ST elevation myocardial infarction. 4. History of tobacco use. 5. Right apical thrombus. PLAN: IV Lasix. Supplemental O2. BiPAP if the patient develops increasing respiratory distress. Cardiac enzymes. Trend troponins. Further workup as per Cardiology. Smoking cessation counseled. Will also obtain follow up chest x- rays. EDISON CORTÉS M.D. [id number] MTDD
[2018-11-25] MEDS: HEPARIN - 25,000 UNIT in SODIUM CHLORIDE 495 ML IV SCH (15:19)
[2018-11-25] MEDS: ATORVASTATIN CA 80 MG TABLET (FP) PO SCH (21:17)
[2018-11-26 08:05] LABS: HEMATOCRIT 40.8 % (32.4-45.2); HEMOGLOBIN 13.9 GM/dL (10.7-15.3); MCH 30.4 pg (25.7-33.7); MEAN CELL VOLUME 89.6 fl (80-96); MEAN PLT VOLUME 10.4 fl (7.5-11.1); PLATELET COUNT 241 K/MM3 (134-434); RBC 4.56 M/mm3 (3.60-5.2); RDW 15.2 % (11.6-15.6); WHITE BLOOD COUNT 6.2 K/mm3 (4.0-10.0)
[2018-11-26 09:21] LABS: ALBUMIN 3.7 g/dl (3.4-5.0); ALK PHOS 116 U/L (45-117); ANION GAP 6 MMOL/L (8-16); BILIRUBIN,TOTAL 0.5 mg/dL (0.2-1); BLOOD UREA NITROGEN 20 mg/dL (7-18); CALCIUM 9.1 mg/dL (8.5-10.1); CHLORIDE 103 mmol/L (98-107); CO2 30 mmol/L (21-32); CREATININE 0.9 mg/dL (0.55-1.3); GLUCOSE,RANDOM 91 mg/dL (74-106); POTASSIUM 3.9 mmol/L (3.5-5.1); SGOT/AST 32 U/L (15-37); SGPT/ALT 59 U/L (13-61); SODIUM 138 mmol/L (136-145); TOT PROT 6.9 g/dl (6.4-8.2)
[2018-11-26] MEDS ORDERED: PT OWN MED DRAWER 7, Y5N ONE ×2 (09:41→16:32)
[2018-11-26] MEDS: QUINAPRIL HCL 5 MG TABLET (FP) PO SCH (09:42)
[2018-11-26] MEDS: CARVEDILOL 3.125 MG TABLET (FP) PO SCH ×2 (09:43→23:12)
[2018-11-26] MEDS: ASPIRIN COATED 81 MG TABLET.EC PO SCH (09:43)
--- NOTE | 2018-11-26 10:12 | PN ---
Progress Note, Physician Chief Complaint: Pt is A&Ox3; denies chest pain, palpiataions, or shortness of breath. +Weak. Radha daughter (Chani) is at bedside. History of Present Illness: 58 year old female (b. [facility]) with history of "tachycardia", long- term cigarettes (1/2 ppd for past 40 + years), anxeity/depression (per pt and daughter), presenting with sudden onset shortness of breath and respiratory difficulty of sudden onset 30 minutes before presentation. Patient is from [facility] visiting for the past month and had no issues all day until these symptoms started. According to friend at bedside she began breathing rapidly and having palpitations. Denies any pain anywhere but kept clutching her epigastric region on exam. She has family members with heart problems but is not sure which ones. The only medication she is on is sedoxil (Mexazolam) for her "tachcyardia". Denies any recent fevers, chills nausea vomiting diarrhea or other symptoms. Pt says that symptoms of weakness and dyspnea began 09/[address] [facility]. She had many tests there, and was told her heartwas fine, but she had a "virus" in her stomach (periods of palpitations are occasionally felt in the abdomen, then travel into the chest). - Current Medication List Current Medications: Active Medications Aspirin (Ecotrin -) 81 mg PO DAILY [facility] Last Admin: 11/26/18 09:43 Dose: 81 mg Atorvastatin Calcium (Lipitor -) 80 mg PO HS [facility] Last Admin: 11/25/18 21:17 Dose: 80 mg Carvedilol (Coreg -) 3.125 mg PO BID [facility] Last Admin: 11/26/18 09:43 Dose: 3.125 mg Furosemide (Lasix Injection -) 40 mg IVPUSH DAILY [facility] Last Admin: 11/25/18 11:01 Dose: 40 mg Heparin Sodium (Porcine) (Heparin -) 1,000 unit IVPUSH PRN PRN PRN Reason: Heparin Heparin Sodium (Porcine) (Heparin -) 5,000 unit IVPUSH PRN PRN PRN Reason: Heparin Heparin Sodium (Porcine) 25, (000 unit/ Sodium Chloride) 500 mls @ 20 mls/hr IV TITR [facility]; Protocol Last Titration: 11/25/18 23:33 Dose: 1,000 unit/hr, 20 mls/hr Quinapril HCl (Accupril -) 5 mg PO DAILY ODALYS Last Admin: 11/26/18 09:42 Dose: 5 mg - Objective Vital Signs: Vital Signs Temperature 97.8 F 11/26/18 06:00 Pulse Rate 74 11/26/18 06:00 Respiratory Rate 20 11/26/18 06:00 Blood Pressure 110/66 11/26/18 06:00 O2 Sat by Pulse Oximetry (%) 98 11/26/18 07:28 Constitutional: Yes: Anxious Eyes: Yes: WNL HENT: Yes: WNL Neck: Yes: WNL Cardiovascular: Yes: Regular Rate and Rhythm, S1, S2, S3 Respiratory: Yes: Diminished, Rales Gastrointestinal: Yes: Soft. No: Tenderness ...Rectal Exam: Yes: Deferred Genitourinary: No: Anuria Breast(s): Yes: WNL Musculoskeletal: Yes: Muscle Weakness Extremities: Yes: WNL Edema: No Peripheral Pulses WNL: Yes Integumentary: Yes: WNL Neurological: Yes: Alert, Oriented Psychiatric: Yes: Alert, Oriented, Other (anxeity/depression) Labs: CBC, BMP 11/26/18 06:30 11/26/18 06:00 INR, PTT INR 1.19 (0.83-1.09) H 11/25/18 05:20 - ....Imaging Chest X-ray: Image Reviewed Cat Scan: Image Reviewed EKG: Image Reviewed Other: Image Reviewed (telemetry: NSR; periods of PSVT) Problem List - Problems (1) Acute systolic CHF (congestive heart failure) Assessment/Plan: +JVD; congestive changes on CXR, CT chest. Elevateed BNP. EKG initially: sinus tachycardia, LVH, STT changes r/u, e.g., ?repolarization changes vs ischemia). Elevated TNI. On lisinopril; increase dose as tolerated. Start carvedilol (no hx asthma). Plan to start spironolactone. On furosemide 40 mg IVP daily. F/u TSH and lipids. Repeat EKG now that HR is better-controlled. F/u BUN/Cr, electrolytes, daily weight, Is and Os. Daughter says pt had extensive cardiac workup in [facility] [place] 09/2018 for simlar symptoms; she will furnish the records. Will require coronary artery evaluation when stable. 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 Now that the children are independent, she may be feeling "alone and useless" per daughter. She also was under a great deal of emotional stress and depression for the past several months. Code(s): F41.9 - ANXIETY DISORDER, UNSPECIFIED; F32.9 - MAJOR DEPRESSIVE DISORDER, SINGLE EPISODE, UNSPECIFIED (3) Cigarette nicotine dependence Assessment/Plan: Presently has no desire to smoke; consider starting nicotine patch (or consider Wellbutrin, in view of anxeity/depression and no hx seizures). Code(s): F17.210 - NICOTINE DEPENDENCE, CIGARETTES, UNCOMPLICATED (4) Hyperlipidemia Assessment/Plan: f/u lipid profile Code(s): E78.5 - HYPERLIPIDEMIA, UNSPECIFIED (5) Elevated troponin I level Assessment/Plan: TNI 0.17-->0.66-->0.63; corresponding CK levels pending. EKG: sinus tachycardia; ?LAE; STT changes: r/o ischemia, repolarization abnormailty. ECHO: severely reduced LVEF globally (though regional wall motion abrnormailties cannot be excluded); moderate LAE; possible LV apical thrombu; aneurysmal atrial septum; could not assess degree of TR (pulmonary HTN could not be ruled out). R/u coronary artery disease as source of TNI elevation; severe acute systolic CHF and (?longstanding) tachycardia are likely contibutors to demand ischemia. On IV heparin (elevated TNI; ?apical LV thrombus). Code(s): R74.8 - ABNORMAL LEVELS OF OTHER SERUM ENZYMES (6) LV (left ventricular) mural thrombus Code(s): I51.3 - INTRACARDIAC THROMBOSIS, NOT ELSEWHERE CLASSIFIED
[2018-11-26] MEDS: HEPARIN - 25,000 UNIT in SODIUM CHLORIDE 495 ML IV SCH (10:28)
[2018-11-26] MEDS: FUROSEMIDE 40 MG/4 ML INJECTABLE VIAL IVPUSH SCH (10:29)
[2018-11-26 12:49] LABS: CHOLESTEROL 175 mg/dL (50-200); HDL CHOLESTEROL 48 mg/dL (40-60); TRIGLYCERIDES 88 mg/dL (0-150)
--- NOTE | 2018-11-26 13:56 | PN ---
Teaching Attending Note Name of Resident: Susan Sadler ATTENDING PHYSICIAN STATEMENT I saw and evaluated the patient. I reviewed the resident's note and discussed the case with the resident. I agree with the resident's findings and plan as documented. SUBJECTIVE: No fever or chills. No SOB. feels much better. OBJECTIVE: NAD CV: RRR, no MRG. + hepatojygular reflux. Lungs: CTAB Ext: no edema on LE ABd: soft, NT, ND , NL BS A/P : 58 y/o lady with h/o tachycardia, who presented who presented with SOB . She was found to have acute CHF exacerbation 1- New onset Acute systolic CHF exacerbation : improved. Net Neg 2 L in past 24 hr stil not clear of etiology. d/W dr. small, was worked up in DR seema marquez and records to be brought by family. - cont current dose of lasix and ACEI. - coreg started this am due t a run of SVT on tele - repeat echo to reevaluate for thrombus as HR is slow now - Decision on stress test vS cath to follow - will contact [employer] if any help could be offered to self pay patients - cont heparin gtt for now 2- Elevated trop: demand ischemia Vs primary event. - cont ASa, statin ( LDL 112) , coreg, and ACEI - cath vs stress. 3- Acute hypoxic resp failure due to pulmnary edema: resolved 4-Nicotine dependence: start nicotine patch HLOC SW to help with application for emergency insurance
--- NOTE | 2018-11-26 14:09 | PN ---
Progress Note (short form) - Note Progress Note: Breathing feels much better today. 2 L (-). Afebrile. Intake & Output 11/23/18 11/24/18 11/25/18 11/26/18 23:59 23:59 23:59 23:59 Intake Total 280 360 Output Total 2500 500 Balance -2220 -140 Weight 150 lb 150 lb Last Vital Signs Temp Pulse Resp BP Pulse Ox 99.6 F 88 20 123/80 94 L 11/26/18 09:00 11/26/18 09:00 11/26/18 09:00 11/26/18 09:00 11/26/18 09:00 Active Medications Aspirin (Ecotrin -) 81 mg PO DAILY [facility] Last Admin: 11/26/18 09:43 Dose: 81 mg Atorvastatin Calcium (Lipitor -) 80 mg PO HS [facility] Last Admin: 11/25/18 21:17 Dose: 80 mg Carvedilol (Coreg -) 3.125 mg PO BID [facility] Last Admin: 11/26/18 09:43 Dose: 3.125 mg Furosemide (Lasix Injection -) 40 mg IVPUSH DAILY [facility] Last Admin: 11/26/18 10:29 Dose: 40 mg Heparin Sodium (Porcine) (Heparin -) 1,000 unit IVPUSH PRN PRN PRN Reason: Heparin Heparin Sodium (Porcine) (Heparin -) 5,000 unit IVPUSH PRN PRN PRN Reason: Heparin Heparin Sodium (Porcine) 25, (000 unit/ Sodium Chloride) 500 mls @ 20 mls/hr IV TITR [facility]; Protocol Last Admin: 11/26/18 10:28 Dose: 1,000 unit/hr, 20 mls/hr Nicotine (Nicoderm Patch -) 21 mg TD DAILY [facility] Quinapril HCl (Accupril -) 5 mg PO DAILY [facility] Last Admin: 11/26/18 09:42 Dose: 5 mg Constitutional: Yes: NAD Eyes: Yes: WNL HENT: Yes: WNL Neck: Yes: WNL Cardiovascular: Yes: Regular Rate and Rhythm, S1, S2, S3 Respiratory: Yes: Bibasilar rales Gastrointestinal: Yes: Soft. No: Tenderness ...Rectal Exam: Yes: Deferred Genitourinary: Yes: WNL Breast(s): Yes: WNL Musculoskeletal: Yes: Muscle Weakness Extremities: Yes: WNL Edema: No Peripheral Pulses WNL: Yes Integumentary: Yes: WNL Neurological: Yes: Alert, Oriented Psychiatric: Yes: Alert, Oriented Labs: Laboratory Results - last 24 hr 11/24/18 11/25/18 11/25/18 22:22 09:00 17:02 WBC RBC Hgb Hct MCV MCH MCHC RDW Plt Count MPV PTT (Actin FS) Sodium 140 Potassium 3.8 Chloride 107 Carbon Dioxide 20 L Anion Gap 13 BUN 23 H Creatinine 1.2 Creat Clearance w eGFR 45.98 POC Glucometer 97 Random Glucose 226 H Calcium 8.3 L Phosphorus 6.2 H Magnesium 1.9 Total Bilirubin 0.3 AST 132 H ALT 96 H Alkaline Phosphatase 150 H Creatine Kinase 90 Troponin I 0.17 H 0.63 H* B-Natriuretic Peptide 4451.6 H Total Protein 6.8 Albumin 3.5 Triglycerides Cholesterol Total LDL Cholesterol HDL Cholesterol TSH 11/25/18 11/26/18 11/26/18 21:10 06:00 06:30 WBC 6.2 RBC 4.56 Hgb 13.9 Hct 40.8 MCV 89.6 MCH 30.4 MCHC 34.0 RDW 15.2 Plt Count 241 MPV 10.4 PTT (Actin FS) 55.5 H Sodium 138 Potassium 3.9 Chloride 103 Carbon Dioxide 30 Anion Gap 6 L BUN 20 H Creatinine 0.9 Creat Clearance w eGFR > 60 POC Glucometer Random Glucose 91 Calcium 9.1 Phosphorus Magnesium Total Bilirubin 0.5 AST 32 ALT 59 Alkaline Phosphatase 116 Creatine Kinase 67 Troponin I B-Natriuretic Peptide Total Protein 6.9 Albumin 3.7 Triglycerides 88 Cholesterol 175 Total LDL Cholesterol 114 H HDL Cholesterol 48 TSH 0.61 11/26/18 11/26/18 06:30 12:45 WBC RBC Hgb Hct MCV MCH MCHC RDW Plt Count MPV PTT (Actin FS) 65.7 H Sodium Potassium Chloride Carbon Dioxide Anion Gap BUN Creatinine Creat Clearance w eGFR POC Glucometer 161 Random Glucose Calcium Phosphorus Magnesium Total Bilirubin AST ALT Alkaline Phosphatase Creatine Kinase Troponin I B-Natriuretic Peptide Total Protein Albumin Triglycerides Cholesterol Total LDL Cholesterol HDL Cholesterol TSH IMP ACUTE HYPOXEMIC RESPIRATORY FAILURE ACUTE ON CHRONIC CHF SEVERE LV DYSFUNCTION CARDIOMYOPATHY ? SECONDARY CHRONIC TACHYCARDIA, ISCHEMIC ? APICAL THROMBUS NSTEMI + TROPONIN SMOKER PLAN LASIX O2 NEEDED DAILY WT NO SMOKING NICOTENE PATCH RATE CONTROL DR ROBERTSON
--- NOTE | 2018-11-26 16:41 | EKG ---
Test Reason : Blood Pressure : / mmHG Vent. Rate : 072 BPM Atrial Rate : 072 BPM P-R Int : 092 ms QRS Dur : 088 ms QT Int : 498 ms P-R-T Axes : 003 019 205 degrees QTc Int : 545 ms SINUS RHYTHM WITH SHORT [place] LEFT VENTRICULAR HYPERTROPHY WITH REPOLARIZATION ABNORMALITY PROLONGED QT ABNORMAL ECG WHEN COMPARED WITH ECG OF 25-NOV-2018 01:11, [place] INTERVAL HAS DECREASED INVERTED T WAVES HAVE REPLACED NONSPECIFIC T WAVE ABNORMALITY IN INFERIOR LEADS T WAVE INVERSION MORE EVIDENT IN ANTEROLATERAL LEADS Confirmed by SUZAN KELSEY MD ([id number]) on 11/26/2018 4:41:14 PM Referred By: SOUMYA HAIRSTON DR Confirmed By:SUZAN KELSEY MD
--- NOTE | 2018-11-26 18:19 | PN ---
Physical Exam: SUBJECTIVE: Patient seen and examined at bedside. No acute events overnight. Pt denies cp, sob, abd pain, urinary/bowel symptoms. Still remains in bed. OBJECTIVE: Vital Signs Temperature 98.8 F 11/26/18 14:10 Pulse Rate 76 11/26/18 14:10 Respiratory Rate 18 11/26/18 14:10 Blood Pressure 115/68 11/26/18 14:10 O2 Sat by Pulse Oximetry (%) 94 L 11/26/18 09:00 GENERAL: AAOx3. Sudanese-speaking. NAD. Resting comfortably. HEENT: AT/NC. EOMI. FRANCIE. Moist mucus membranes. NECK: Normal range of motion, supple without lymphadenopathy, JVD, or masses. LUNGS: CTA B/L. No wheezes noted. HEART: Regular rate and rhythm, normal S1 and S2 without murmur, rub or gallop. ABDOMEN: Soft, nontender, not distended, normoactive bowel sounds, no guarding, no rebound, no masses. No hepatomegaly or splenomegaly. LOWER EXTREMITIES: 2+ pulses, warm, well-perfused. No calf tenderness. No peripheral edema. NEUROLOGICAL: Cranial nerves II-X intact. Normal speech. SKIN: Warm, dry, normal turgor, no rashes or lesions noted, normal capillary refill. CBCD WBC 6.2 K/mm3 (4.0-10.0) 11/26/18 06:30 RBC 4.56 M/mm3 (3.60-5.2) 11/26/18 06:30 Hgb 13.9 GM/dL (10.7-15.3) 11/26/18 06:30 Hct 40.8 % (32.4-45.2) 11/26/18 06:30 MCV 89.6 fl (80-96) 11/26/18 06:30 MCHC 34.0 g/dl (32.0-36.0) 11/26/18 06:30 RDW 15.2 % (11.6-15.6) 11/26/18 06:30 Plt Count 241 K/MM3 (134-434) 11/26/18 06:30 MPV 10.4 fl (7.5-11.1) 11/26/18 06:30 CMP Sodium 138 mmol/L (136-145) 11/26/18 06:00 Potassium 3.9 mmol/L (3.5-5.1) 11/26/18 06:00 Chloride 103 mmol/L (98-107) 11/26/18 06:00 Carbon Dioxide 30 mmol/L (21-32) 11/26/18 06:00 Anion Gap 6 MMOL/L (8-16) L 11/26/18 06:00 BUN 20 mg/dL (7-18) H 11/26/18 06:00 Creatinine 0.9 mg/dL (0.55-1.3) 11/26/18 06:00 Creat Clearance w eGFR > 60 (>60) 11/26/18 06:00 Calcium 9.1 mg/dL (8.5-10.1) 11/26/18 06:00 Total Bilirubin 0.5 mg/dL (0.2-1) 11/26/18 06:00 AST 32 U/L (15-37) 11/26/18 06:00 ALT 59 U/L (13-61) 11/26/18 06:00 Alkaline Phosphatase 116 U/L (45-117) 11/26/18 06:00 Total Protein 6.9 g/dl (6.4-8.2) 11/26/18 06:00 Albumin 3.7 g/dl (3.4-5.0) 11/26/18 06:00 Active Medications Aspirin (Ecotrin -) 81 mg PO DAILY [facility] Last Admin: 11/26/18 09:43 Dose: 81 mg Atorvastatin Calcium (Lipitor -) 80 mg PO HS [facility] Last Admin: 11/25/18 21:17 Dose: 80 mg Carvedilol (Coreg -) 3.125 mg PO BID [facility] Last Admin: 11/26/18 09:43 Dose: 3.125 mg Furosemide (Lasix Injection -) 40 mg IVPUSH DAILY [facility] Last Admin: 11/26/18 10:29 Dose: 40 mg Heparin Sodium (Porcine) (Heparin -) 1,000 unit IVPUSH PRN PRN PRN Reason: Heparin Heparin Sodium (Porcine) (Heparin -) 5,000 unit IVPUSH PRN PRN PRN Reason: Heparin Heparin Sodium (Porcine) 25, (000 unit/ Sodium Chloride) 500 mls @ 20 mls/hr IV TITR [facility]; Protocol Last Admin: 11/26/18 10:28 Dose: 1,000 unit/hr, 20 mls/hr Nicotine (Nicoderm Patch -) 21 mg TD DAILY [facility] Quinapril HCl (Accupril -) 5 mg PO DAILY [facility] Last Admin: 11/26/18 09:42 Dose: 5 mg CONSULT: Cardio- Dr. Ruiz Pulm- Dr. Selby IMAGING: * ECHO (11/25/18): LV grossly normal size. LV sys fxn severely reduced. Severe global hypokinesis of LV. Regional wall motion abnormalities cannot be excluded due to limited visualization. Cannot exclude apical thrombus. LA is moderately dilated. RA size is normal. Atrial septum is aneurysmal. Insufficient TR detected to calculate RV sys pressure. Trace to mild MR. * CTA: No evid of PE. Cardiomegaly and patchy groundglass opacification c/w CHF. R pleural effusion and bibasilar consolidation/atelectasis. * CXR: Large heart w/ congestive changes and ? superimposed infiltrates. * EKG (11/26/18): Sinus rhythm w/ shortened MT interval. QTc 545. Inverted T waves have replaced nonspecific T wave abnormality in inferior leads. ASSESSMENT/PLAN: 58F w/ pmhx tachycardia who comes into the the ED c/o acute onset SOB and palpitations. #Acute systolic CHF exacerbation -Per hx, pt had extensive cardiac workup in the [place]. Daughter will retrieve records. -ECHO noted above; LV sys fxn severely reduced with severe global hypokinesis of LV. -Cont ASA, Heparin drip (cannot exclude apical thrombus on ECHO), Lasix 40 IVP QD, Quinipril 5 PO QD, Carvedilol 3.12 BID, Atorvastatin 80 HS -Repeat ECHO ordered to assess possible thrombus. If not present, will consider d/c heparin drip -Per cardio, start Carvedilol 3.125 BID. Will start on Spironolactone. Pt will likely need cath in the future due to clinical condition as discussed with cardio. Will attempt to call [employer] for options for patient. -Mild elevated trop could be demand vs initial cardiac event, 0.17 > 0.66 > 0.63. EKG showed ST depression in lateral leads and J point elevation in anteroseptal leads and tachycardia. ST depression resolved with improvement in rate, but TWI is evident in lateral and inferior leads. #Acute Hypoxic Respiratory Failure 2/2 pulmonary edema -CTA showed no evid. of PE -Cont to monitor, currently on 3L NC satting at 95%. -Per pulm, cont NIPPV if pt develops increased respiratory distress; cont Lasix and O2 #Hx of Tobacco abuse -Nicotine patch -Smoking cessation counseling #FEN -no fluids indicated -lytes as above; replete PRN -Cholesterol/Fat-controlled diet #Prophylaxis -Heparin GTT #dispo -monitor on tele Visit type - Emergency Visit Emergency Visit: Yes ED Registration Date: 11/24/18 Care time: The patient presented to the Emergency Department on the above date and was hospitalized for further evaluation of their emergent condition. - New Patient This patient is new to me today: No - Critical Care Critical Care patient: No
[2018-11-26] MEDS: ATORVASTATIN CA 80 MG TABLET (FP) PO SCH (23:12)
[2018-11-27 06:32] LABS: HEMATOCRIT 39.2 % (32.4-45.2); HEMOGLOBIN 13.3 GM/dL (10.7-15.3); MCH 30.8 pg (25.7-33.7); MEAN CELL VOLUME 90.6 fl (80-96); MEAN PLT VOLUME 10.4 fl (7.5-11.1); PLATELET COUNT 232 K/MM3 (134-434); RBC 4.33 M/mm3 (3.60-5.2); RDW 15.1 % (11.6-15.6); WHITE BLOOD COUNT 5.9 K/mm3 (4.0-10.0)
[2018-11-27 06:56] LABS: ANION GAP 7 MMOL/L (8-16); BLOOD UREA NITROGEN 23 mg/dL (7-18); CALCIUM 8.9 mg/dL (8.5-10.1); CHLORIDE 104 mmol/L (98-107); CO2 29 mmol/L (21-32); CREATININE 0.9 mg/dL (0.55-1.3); GLUCOSE,RANDOM 92 mg/dL (74-106); POTASSIUM 3.6 mmol/L (3.5-5.1); SODIUM 140 mmol/L (136-145)
[2018-11-27] MEDS: CARVEDILOL 3.125 MG TABLET (FP) PO SCH (09:37)
[2018-11-27] MEDS: FUROSEMIDE 40 MG/4 ML INJECTABLE VIAL IVPUSH SCH (09:38)
[2018-11-27] MEDS: NICOTINE 21 MG/24 HOURS TOPICAL PATCH TD SCH (09:38)
[2018-11-27] MEDS: ASPIRIN COATED 81 MG TABLET.EC PO SCH (09:38)
[2018-11-27] MEDS: QUINAPRIL HCL 5 MG TABLET (FP) PO SCH (09:40)
--- NOTE | 2018-11-27 09:59 | ECHO ---
Name: SAMIR ALMODOVAR Exam:Adult Echocardiogram Study Date: 11/27/2018 07:39 AM Age: 58 yrs Reason For Study: R/O APICAL THROMBUS Height: 63 in Weight: 150 lb BSA: 1.7 m2 Left Ventricle The left ventricle is mildly dilated. Ejection Fraction = 20-25%. There is severe global hypokinesis of the left ventricle. Thrombus can not be excluded. The left ventricular apex is not well visualized. Interpretation Summary Ejection Fraction = 20-25%. There is severe global hypokinesis of the left ventricle. Thrombus can not be excluded. The left ventricular apex is not well visualized. The left ventricle is mildly dilated. MD Saunders *Danyelle 11/27/2018 09:59 AM
--- NOTE | 2018-11-27 10:42 | PN ---
Physical Exam: SUBJECTIVE: Patient seen and examined at bedside. No acute events overnight. OBJECTIVE: Vital Signs Temperature 97.8 F 11/27/18 02:00 Pulse Rate 68 11/27/18 06:00 Respiratory Rate 20 11/27/18 06:00 Blood Pressure 107/70 11/27/18 06:00 O2 Sat by Pulse Oximetry (%) 94 L 11/26/18 21:00 GENERAL: AAOx3. Yakut-speaking. NAD. Resting comfortably. HEENT: AT/NC. EOMI. FRANCIE. Moist mucus membranes. NECK: Normal range of motion, supple without lymphadenopathy, JVD, or masses. LUNGS: CTA B/L. No wheezes noted. HEART: Regular rate and rhythm, normal S1 and S2 without murmur, rub or gallop. ABDOMEN: Soft, nontender, not distended, normoactive bowel sounds, no guarding, no rebound, no masses. No hepatomegaly or splenomegaly. LOWER EXTREMITIES: 2+ pulses, warm, well-perfused. No calf tenderness. No peripheral edema. NEUROLOGICAL: Cranial nerves II-X intact. Normal speech. SKIN: Warm, dry, normal turgor, no rashes or lesions noted, normal capillary refill. CBC, BMP 11/27/18 05:30 11/27/18 05:30 Active Medications Aspirin (Ecotrin -) 81 mg PO DAILY [facility] Last Admin: 11/27/18 09:38 Dose: 81 mg Atorvastatin Calcium (Lipitor -) 80 mg PO HS [facility] Last Admin: 11/26/18 23:12 Dose: 80 mg Carvedilol (Coreg -) 6.25 mg PO BID [facility] Furosemide (Lasix Injection -) 40 mg IVPUSH DAILY [facility] Last Admin: 11/27/18 09:38 Dose: 40 mg Heparin Sodium (Porcine) (Heparin -) 1,000 unit IVPUSH PRN PRN PRN Reason: Heparin Heparin Sodium (Porcine) (Heparin -) 5,000 unit IVPUSH PRN PRN PRN Reason: Heparin Heparin Sodium (Porcine) 25, (000 unit/ Sodium Chloride) 500 mls @ 20 mls/hr IV TITR [facility]; Protocol Last Admin: 11/26/18 10:28 Dose: 1,000 unit/hr, 20 mls/hr Nicotine (Nicoderm Patch -) 21 mg TD DAILY [facility] Last Admin: 11/27/18 09:38 Dose: 21 mg Quinapril HCl (Accupril -) 5 mg PO DAILY [facility] Last Admin: 11/27/18 09:40 Dose: 5 mg Warfarin Sodium (Coumadin -) 7.5 mg PO DAILY@1800 [facility] CONSULT: Cardio- Dr. Ruiz Pulm- Dr. Selby IMAGING: * ECHO (11/25/18): LV grossly normal size. LV sys fxn severely reduced. Severe global hypokinesis of LV. Regional wall motion abnormalities cannot be excluded due to limited visualization. Cannot exclude apical thrombus. LA is moderately dilated. RA size is normal. Atrial septum is aneurysmal. Insufficient TR detected to calculate RV sys pressure. Trace to mild MR. * CTA: No evid of PE. Cardiomegaly and patchy groundglass opacification c/w CHF. R pleural effusion and bibasilar consolidation/atelectasis. * CXR: Large heart w/ congestive changes and ? superimposed infiltrates. * EKG (11/26/18): Sinus rhythm w/ shortened NM interval. QTc 545. Inverted T waves have replaced nonspecific T wave abnormality in inferior leads. * ECHO (11/27/18): EF 20-25%. Severe global hypokinesis of the LV. Thrombus cannot be excluded. LV apex is not well visualized. LV is mildly dilated. ASSESSMENT/PLAN: 58F w/ pmhx tachycardia who comes into the the ED c/o acute onset SOB and palpitations. #Acute systolic CHF exacerbation -Retrieved prior records from daughter from [place]. Pt was previously diagnosed with +H.Pyloriu infection and given Omeprazole, Amoxicillin , Levofloxacin. Will review rest of records. -Repeat ECHO noted above; remarkable for EF 20-25% with severe global hypokinesis of LV. -Cont ASA, Heparin drip (cannot exclude apical thrombus on ECHO), Lasix 40 IVP QD, Quinipril 5 PO QD, Carvedilol 3.12 BID, Atorvastatin 80 HS -Repeat ECHO still could not exclude thrombus. Currently on heparin drip for now ; Start Coumadin as tele showed a flutter and a fib (CHADS-VASC 2). Check INR -Per cardio, increase to Carvedilol 6.25 BID. May start Spironolactone tomorrow pending cardio recs. Pt will likely need cath in the future due to clinical condition as discussed with cardio. 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 -Stress test scheduled for Friday #Elevated trops -Mild elevated trop could be demand vs initial cardiac event, 0.17 > 0.66 > 0.63. EKG showed ST depression in lateral leads and J point elevation in anteroseptal leads and tachycardia. ST depression resolved with improvement in rate, but TWI is evident in lateral and inferior leads. -Cont ASA, statin, BB, ACEi #A. fib -cont BB and AC #Acute Hypoxic Respiratory Failure 2/2 pulmonary edema; resolved. -CTA showed no evid. of PE -Cont to monitor, currently on 3L NC satting at 95%. -Per pulm, cont NIPPV if pt develops increased respiratory distress; cont Lasix and O2 #Hx of Tobacco abuse -Nicotine patch -Smoking cessation counseling #FEN -no fluids indicated -lytes as above; replete PRN -Cholesterol/Fat-controlled diet #Prophylaxis -Heparin GTT #dispo -monitor on tele Visit type - Emergency Visit Emergency Visit: Yes ED Registration Date: 11/24/18 Care time: The patient presented to the Emergency Department on the above date and was hospitalized for further evaluation of their emergent condition. - New Patient This patient is new to me today: No - Critical Care Critical Care patient: No
--- NOTE | 2018-11-27 11:05 | PN ---
Progress Note, Physician History of Present Illness: PULMONARY ALERT,FEELING BETTER DYSPNEA IMPROVING,-CP,+ COUGH CLEAR SPUTUM. O2 SAT 95% ON RA - Current Medication List Current Medications: Active Medications Aspirin (Ecotrin -) 81 mg PO DAILY [facility] Last Admin: 11/27/18 09:38 Dose: 81 mg Atorvastatin Calcium (Lipitor -) 80 mg PO HS [facility] Last Admin: 11/26/18 23:12 Dose: 80 mg Carvedilol (Coreg -) 6.25 mg PO BID [facility] Furosemide (Lasix Injection -) 40 mg IVPUSH DAILY [facility] Last Admin: 11/27/18 09:38 Dose: 40 mg Heparin Sodium (Porcine) (Heparin -) 1,000 unit IVPUSH PRN PRN PRN Reason: Heparin Heparin Sodium (Porcine) (Heparin -) 5,000 unit IVPUSH PRN PRN PRN Reason: Heparin Heparin Sodium (Porcine) 25, (000 unit/ Sodium Chloride) 500 mls @ 20 mls/hr IV TITR [facility]; Protocol Last Admin: 11/26/18 10:28 Dose: 1,000 unit/hr, 20 mls/hr Nicotine (Nicoderm Patch -) 21 mg TD DAILY [facility] Last Admin: 11/27/18 09:38 Dose: 21 mg Quinapril HCl (Accupril -) 5 mg PO DAILY [facility] Last Admin: 11/27/18 09:40 Dose: 5 mg Warfarin Sodium (Coumadin -) 7.5 mg PO DAILY@1800 [facility] - Objective Vital Signs: Vital Signs Temperature 97.8 F 11/27/18 02:00 Pulse Rate 68 11/27/18 06:00 Respiratory Rate 20 11/27/18 06:00 Blood Pressure 107/70 11/27/18 06:00 O2 Sat by Pulse Oximetry (%) 94 L 11/26/18 21:00 Constitutional: Yes: Well Nourished, Calm Eyes: Yes: WNL HENT: Yes: WNL Neck: Yes: WNL Cardiovascular: Yes: Regular Rate and Rhythm, S1, S2 Respiratory: Yes: Rales (FEW BASILAR RALES) Gastrointestinal: Yes: Normal Bowel Sounds, Soft Extremities: Yes: WNL Edema: No Labs: CBC, BMP 11/27/18 05:30 11/27/18 05:30 INR, PTT INR 1.19 (0.83-1.09) H 11/25/18 05:20 Assessment/Plan IMP ACUTE HYPOXEMIC RESPIRATORY FAILURE ACUTE ON CHRONIC CHF SEVERE LV DYSFUNCTION CARDIOMYOPATHY ? SECONDARY CHRONIC TACHYCARDIA,ISCHEMIA ? APICAL THROMBUS NSTEMI + TROPONIN SMOKER PLAN LASIX O2 NIPPV IF DEVELOPES INCREASED RESPIRATORY DISTRESS DAILY WT F/U CHEST X-RAYS RATE CONTROL AC DR CORTÉS
--- NOTE | 2018-11-27 13:15 | EKG ---
Test Reason : Blood Pressure : / mmHG Vent. Rate : 064 BPM Atrial Rate : 064 BPM P-R Int : 116 ms QRS Dur : 094 ms QT Int : 494 ms P-R-T Axes : 051 051 183 degrees QTc Int : 509 ms NORMAL SINUS RHYTHM VOLTAGE CRITERIA FOR LEFT VENTRICULAR HYPERTROPHY PROLONGED QT ABNORMAL ECG WHEN COMPARED WITH ECG OF 26-NOV-2018 11:32, NO SIGNIFICANT CHANGE WAS FOUND Confirmed by KARAN AMADO, NEHEMIAS ([id number]) on 11/27/2018 1:14:39 PM Referred By: YOVANNY DOOLEY Confirmed By:NEHEMIAS RUSSO MD
--- NOTE | 2018-11-27 13:24 | EKG ---
Test Reason : Blood Pressure : / mmHG Vent. Rate : 068 BPM Atrial Rate : 068 BPM P-R Int : 118 ms QRS Dur : 094 ms QT Int : 482 ms P-R-T Axes : 047 035 171 degrees QTc Int : 512 ms NORMAL SINUS RHYTHM VOLTAGE CRITERIA FOR LEFT VENTRICULAR HYPERTROPHY PROLONGED QT ABNORMAL ECG WHEN COMPARED WITH ECG OF 27-NOV-2018 09:22, NO SIGNIFICANT CHANGE WAS FOUND Confirmed by KARAN AMADO, NEHEMIAS ([id number]) on 11/27/2018 1:23:54 PM Referred By: YOVANNY DOOLEY Confirmed By:NEHEMIAS RUSSO MD
[2018-11-27 17:23] LABS: INR 1.08 (0.83-1.09); PROTHROMBIN TIME (PATIENT) 12.8 SEC (9.7-13.0)
--- NOTE | 2018-11-27 18:02 | PN ---
Teaching Attending Note Name of Resident: Anoop Gastelum ATTENDING PHYSICIAN STATEMENT I saw and evaluated the patient. I reviewed the resident's note and discussed the case with the resident. I agree with the resident's findings and plan as documented. SUBJECTIVE: No fever or chills . No SOB. OBJECTIVE: NAD CV: RRR, no MRG. Lungs: CTAB Ext: no edema on LE ABd: soft, NT, ND , NL BS A/P : 58 y/o lady with h/o tachycardia, who presented who presented with SOB . She was found to have acute CHF exacerbation 1- New onset Acute systolic CHF exacerbation : improved. cont to be net neg - cont current dose of lasix and ACEI. - increase coreg . - repeat Echo still with undetermined thrombus , but NATALIE will not belt changer per d/w Card - Stress test on Friday - Unable to reach [employer],[any local rep still - cont heparin gtt for now. start coumadin as tele showed a fib and A flutter with CHADS VASC of at least 2 - spironolactone might be added 2- Elevated trop: demand ischemia Vs primary event. - cont ASA, statin , coreg, and ACEI - stress Friday 3- A fib: as above. coreg and AC 4-Nicotine dependence: nicotine patch [facility]LOC SW to help with application for emergency insurance Records from were reviewed. No cardiac w/u , just labs and h/o treatment for HP .
[2018-11-27] MEDS: WARFARIN NA 7.5 MG TABLET (FP) PO SCH (18:19)
[2018-11-27] MEDS: HEPARIN - 25,000 UNIT in SODIUM CHLORIDE 495 ML IV SCH (18:34)
[2018-11-27] MEDS: ACETAMINOPHEN 325 MG TABLET (FP) PO PRN (22:24)
[2018-11-27] MEDS: ATORVASTATIN CA 80 MG TABLET (FP) PO SCH (22:25)
[2018-11-27] MEDS: CARVEDILOL 6.25 MG TABLET (FP) PO SCH (22:25)
--- NOTE | 2018-11-28 02:00 | PN ---
Progress Note, Physician Chief Complaint: Pt is A&Ox3; more comfortable overnight; asks why she has a heart problem. History of Present Illness: 58 year old female (b. [facility]) with history of "tachycardia", long- term cigarettes (1/2 ppd for past 40 + years), anxeity/depression (per pt and daughter), presenting with sudden onset shortness of breath and respiratory difficulty of sudden onset 30 minutes before presentation. Patient is from [facility] visiting for the past month and had no issues all day until these symptoms started. According to friend at bedside she began breathing rapidly and having palpitations. Denies any pain anywhere but kept clutching her epigastric region on exam. She has family members with heart problems but is not sure which ones. The only medication she is on is sedoxil (Mexazolam) for her "tachycardia". Denies any recent fevers, chills nausea vomiting diarrhea or other symptoms. Hx working for 30 years in [place], then came to [place] several months ago to help care for grandchildren. Pt says that symptoms of weakness and dyspnea began 09/2018 while in [facility]. She had many tests there, and was told her heart was fine, but she had a "virus" in her stomach (periods of palpitations are occasionally felt in the abdomen, then travel into the chest). - Current Medication List Current Medications: Active Medications Acetaminophen (Tylenol -) 650 mg PO Q6H PRN PRN Reason: PAIN OR FEVER Last Admin: 11/27/18 22:24 Dose: 650 mg Aspirin (Ecotrin -) 81 mg PO DAILY [facility] Last Admin: 11/27/18 09:38 Dose: 81 mg Atorvastatin Calcium (Lipitor -) 80 mg PO HS [facility] Last Admin: 11/27/18 22:25 Dose: 80 mg Carvedilol (Coreg -) 6.25 mg PO BID [facility] Last Admin: 11/27/18 22:25 Dose: 6.25 mg Furosemide (Lasix Injection -) 40 mg IVPUSH DAILY [facility] Last Admin: 11/27/18 09:38 Dose: 40 mg Heparin Sodium (Porcine) (Heparin -) 1,000 unit IVPUSH PRN PRN PRN Reason: Heparin Heparin Sodium (Porcine) (Heparin -) 5,000 unit IVPUSH PRN PRN PRN Reason: Heparin Heparin Sodium (Porcine) 25, (000 unit/ Sodium Chloride) 500 mls @ 20 mls/hr IV TITR [facility]; Protocol Last Admin: 11/27/18 18:34 Dose: 1,000 unit/hr, 20 mls/hr Nicotine (Nicoderm Patch -) 21 mg TD DAILY [facility] Last Admin: 11/27/18 09:38 Dose: 21 mg Quinapril HCl (Accupril -) 5 mg PO DAILY [facility] Last Admin: 11/27/18 09:40 Dose: 5 mg Warfarin Sodium (Coumadin -) 7.5 mg PO DAILY@1800 [facility] Last Admin: 11/27/18 18:19 Dose: 7.5 mg - Objective Vital Signs: Vital Signs Temperature 98.2 F 11/27/18 18:00 Pulse Rate 75 11/27/18 18:00 Respiratory Rate 20 11/27/18 18:00 Blood Pressure 109/65 11/27/18 18:00 O2 Sat by Pulse Oximetry (%) 97 11/27/18 09:00 Constitutional: Yes: Anxious Eyes: Yes: WNL HENT: Yes: WNL Neck: Yes: WNL Cardiovascular: Yes: S1, S2 Respiratory: Yes: Regular Gastrointestinal: Yes: Soft ...Rectal Exam: Yes: Deferred Genitourinary: Yes: Anuria Musculoskeletal: Yes: Muscle Weakness Extremities: Yes: WNL Edema: No Peripheral Pulses WNL: Yes Integumentary: Yes: WNL Neurological: Yes: Alert, Oriented, Weakness Psychiatric: Yes: Alert, Oriented Labs: CBC, BMP 11/27/18 05:30 11/27/18 05:30 INR, PTT INR 1.08 (0.83-1.09) 11/27/18 16:50 - ....Imaging Chest X-ray: Image Reviewed EKG: Image Reviewed Other: Image Reviewed (telemetry) Problem List - Problems (1) Acute systolic CHF (congestive heart failure) Assessment/Plan: +JVD; congestive changes on CXR, CT chest. Elevated BNP. EKG initially: sinus tachycardia, LVH, STT changes r/u, e.g., ?repolarization changes vs ischemia). Telemetry: Brief periods of SVT, PAF. Elevated TNI. On lisinopril; increase dose as tolerated. Started carvedilol; increase dose.. Plan to start spironolactone. On furosemide 40 mg IVP daily. F/u TSH and lipids. F/u BUN/Cr, electrolytes, daily weight, Is and Os. Daughter says pt had extensive cardiac workup in [facility] 09/2018 for similar symptoms; she will furnish the records. Will require coronary artery evaluation when stable; tentatively plan on stress MIBI next week. Code(s): I50.21 - ACUTE SYSTOLIC (CONGESTIVE) HEART FAILURE (2) Anxiety and depression Assessment/Plan: Joselin says her mother was the primary breadwinner for the entire family, at one time living in [place] alone for years to provide for her children. Now that the children are independent, she may be feeling "alone and useless" per daughter. She also was under a great deal of emotional stress and depression for the past several months. Code(s): F41.9 - ANXIETY DISORDER, UNSPECIFIED; F32.9 - MAJOR DEPRESSIVE DISORDER, SINGLE EPISODE, UNSPECIFIED (3) Cigarette nicotine dependence Assessment/Plan: Presently has no desire to smoke; consider starting nicotine patch (or consider Wellbutrin, in view of anxiety/depression and no hx seizures). Code(s): F17.210 - NICOTINE DEPENDENCE, CIGARETTES, UNCOMPLICATED (4) Hyperlipidemia Assessment/Plan: f/u lipid profile Code(s): E78.5 - HYPERLIPIDEMIA, UNSPECIFIED (5) Elevated troponin I level Assessment/Plan: TNI 0.17-->0.66-->0.63; corresponding CK levels WNL. EKG: sinus tachycardia; ?LAE; deepening STT changes. ECHO: severely reduced LVEF globally (though regional wall motion abrnormailties cannot be excluded); moderate LAE; possible LV apical thrombus; aneurysmal atrial septum; could not assess degree of TR (pulmonary HTN could not be ruled out). (f/u repeat ECHO on better-controlled HR). R/u coronary artery disease as source of TNI elevation; severe acute systolic CHF and (?longstanding) tachycardia are likely contibutors to demand ischemia. On IV heparin (elevated TNI; ?apical LV thrombus; PAF). Code(s): R74.8 - ABNORMAL LEVELS OF OTHER SERUM ENZYMES (6) LV (left ventricular) mural thrombus Code(s): I51.3 - INTRACARDIAC THROMBOSIS, NOT ELSEWHERE CLASSIFIED
[2018-11-28] MEDS: ACETAMINOPHEN 325 MG TABLET (FP) PO PRN (06:23)
[2018-11-28 07:12] LABS: HEMATOCRIT 38.9 % (32.4-45.2); HEMOGLOBIN 13.2 GM/dL (10.7-15.3); MCH 30.7 pg (25.7-33.7); MCHC 33.9 g/dl (32.0-36.0); MEAN CELL VOLUME 90.5 fl (80-96); MEAN PLT VOLUME 10.3 fl (7.5-11.1); PLATELET COUNT 228 K/MM3 (134-434); RDW 15.2 % (11.6-15.6); WHITE BLOOD COUNT 5.9 K/mm3 (4.0-10.0)
[2018-11-28 07:25] LABS: INR 1.13 (0.83-1.09); PROTHROMBIN TIME (PATIENT) 13.4 SEC (9.7-13.0)
--- NOTE | 2018-11-28 09:05 | PN ---
Progress Note, Physician History of Present Illness: 58 year old female with history of "tachycardia" presenting with sudden onset shortness of breath and respiratory difficulty of sudden onset 30 minutes before presentation. Patient is from [facility] for the past month and had no issues all day until these symptoms started. According to friend at bedside she began breathing rapidly and having palpitations. Denies any pain anywhere but kept clutching her epigastric region on exam. She has family members with heart problems but is not sure which ones. The only medication she is on is sedoxil (Mexazolam) for her "tachcyardia". Denies any recent fevers, chills nausea vomiting diarrhea or other symptoms. 11/24/18 21:50 - Current Medication List Current Medications: Active Medications Acetaminophen (Tylenol -) 650 mg PO Q6H PRN PRN Reason: PAIN OR FEVER Last Admin: 11/28/18 06:23 Dose: 650 mg Aspirin (Ecotrin -) 81 mg PO DAILY [facility] Last Admin: 11/27/18 09:38 Dose: 81 mg Atorvastatin Calcium (Lipitor -) 80 mg PO HS [facility] Last Admin: 11/27/18 22:25 Dose: 80 mg Carvedilol (Coreg -) 6.25 mg PO BID [facility] Last Admin: 11/27/18 22:25 Dose: 6.25 mg Furosemide (Lasix Injection -) 40 mg IVPUSH DAILY [facility] Last Admin: 11/27/18 09:38 Dose: 40 mg Heparin Sodium (Porcine) (Heparin -) 1,000 unit IVPUSH PRN PRN PRN Reason: Heparin Heparin Sodium (Porcine) (Heparin -) 5,000 unit IVPUSH PRN PRN PRN Reason: Heparin Heparin Sodium (Porcine) 25, (000 unit/ Sodium Chloride) 500 mls @ 20 mls/hr IV TITR [facility]; Protocol Last Admin: 11/27/18 18:34 Dose: 1,000 unit/hr, 20 mls/hr Nicotine (Nicoderm Patch -) 21 mg TD DAILY [facility] Last Admin: 11/27/18 09:38 Dose: 21 mg Quinapril HCl (Accupril -) 5 mg PO DAILY [facility] Last Admin: 11/27/18 09:40 Dose: 5 mg Warfarin Sodium (Coumadin -) 7.5 mg PO DAILY@1800 [facility] Last Admin: 11/27/18 18:19 Dose: 7.5 mg - Objective Vital Signs: Vital Signs Temperature 97.5 F L 11/28/18 02:00 Pulse Rate 62 11/28/18 02:00 Respiratory Rate 18 11/28/18 02:00 Blood Pressure 97/69 11/28/18 02:00 O2 Sat by Pulse Oximetry (%) 95 11/27/18 19:50 Eyes: Yes: WNL, Conjunctiva Clear, EOM Intact HENT: Yes: WNL, Atraumatic, Normocephalic Neck: Yes: WNL, Supple, Trachea Midline Cardiovascular: Yes: WNL, Regular Rate and Rhythm Respiratory: Yes: WNL, Regular, CTA Bilaterally Gastrointestinal: Yes: WNL, Normal Bowel Sounds Genitourinary: Yes: WNL Musculoskeletal: Yes: WNL Extremities: Yes: WNL Edema: No Integumentary: Yes: WNL Neurological: Yes: WNL, Alert, Oriented ...Motor Strength: WNL Psychiatric: Yes: WNL Labs: CBC, BMP 11/28/18 05:30 11/27/18 05:30 INR, PTT INR 1.13 (0.83-1.09) H 11/28/18 05:30 Problem List - Problems (1) Acute CHF Code(s): I50.9 - HEART FAILURE, UNSPECIFIED Qualifiers: Heart failure type: unspecified Qualified Code(s): I50.9 - Heart failure, unspecified (2) Acute respiratory failure with hypoxia Code(s): J96.01 - ACUTE RESPIRATORY FAILURE WITH HYPOXIA Assessment/Plan - Problems (1) Acute systolic CHF (congestive heart failure) Assessment/Plan: +JVD; congestive changes on CXR, CT chest. Elevated BNP. EKG initially: sinus tachycardia, LVH, STT changes r/u, e.g., ?repolarization changes vs ischemia). Telemetry: Brief periods of SVT, PAF. Elevated TNI. On lisinopril; increase dose as tolerated. Started carvedilol; increase dose.. Plan to start spironolactone. On furosemide 40 mg IVP daily. F/u TSH and lipids. F/u BUN/Cr, electrolytes, daily weight, Is and Os. Daughter says pt had extensive cardiac workup in [facility] [place] 09/2018 for similar symptoms; she will furnish the records. Will require coronary artery evaluation when stable; tentatively plan on stress MIBI next week. Code(s): I50.21 - ACUTE SYSTOLIC (CONGESTIVE) HEART FAILURE (2) Anxiety and depression Assessment/Plan: Joselin says her mother was the primary breadwinner for the entire family, at one time living in [place] alone for years to provide for her children. Now that the children are independent, she may be feeling "alone and useless" per daughter. She also was under a great deal of emotional stress and depression for the past several months. Code(s): F41.9 - ANXIETY DISORDER, UNSPECIFIED; F32.9 - MAJOR DEPRESSIVE DISORDER, SINGLE EPISODE, UNSPECIFIED (3) Cigarette nicotine dependence Assessment/Plan: Presently has no desire to smoke; consider starting nicotine patch (or consider Wellbutrin, in view of anxiety/depression and no hx seizures). Code(s): F17.210 - NICOTINE DEPENDENCE, CIGARETTES, UNCOMPLICATED (4) Hyperlipidemia Assessment/Plan: f/u lipid profile Code(s): E78.5 - HYPERLIPIDEMIA, UNSPECIFIED (5) Elevated troponin I level Assessment/Plan: TNI 0.17-->0.66-->0.63; corresponding CK levels WNL. EKG: sinus tachycardia; ?LAE; deepening STT changes. ECHO: severely reduced LVEF globally (though regional wall motion abrnormailties cannot be excluded); moderate LAE; possible LV apical thrombus; aneurysmal atrial septum; could not assess degree of TR (pulmonary HTN could not be ruled out). (f/u repeat ECHO on better-controlled HR). R/u coronary artery disease as source of TNI elevation; severe acute systolic CHF and (?longstanding) tachycardia are likely contibutors to demand ischemia. On IV heparin (elevated TNI; ?apical LV thrombus; PAF). Code(s): R74.8 - ABNORMAL LEVELS OF OTHER SERUM ENZYMES (6) LV (left ventricular) mural thrombus Code(s): I51.3 - INTRACARDIAC THROMBOSIS, NOT ELSEWHERE CLASSIFIED
--- NOTE | 2018-11-28 09:43 | PN ---
Physical Exam: SUBJECTIVE: Patient seen and examined at bedside. Per nurse, no acute events overnight. Pt states she was not unable to sleep very well last night, but does know why. She denies cp, sob, abd pain. OBJECTIVE: Vital Signs Temperature 97.5 F L 11/28/18 02:00 Pulse Rate 62 11/28/18 02:00 Respiratory Rate 18 11/28/18 02:00 Blood Pressure 97/69 11/28/18 02:00 O2 Sat by Pulse Oximetry (%) 95 11/27/18 19:50 GENERAL: AAOx3. Welsh-speaking. NAD. Resting comfortably. HEENT: AT/NC. EOMI. FRANCIE. Moist mucus membranes. NECK: Normal range of motion, supple without lymphadenopathy, JVD, or masses. LUNGS: CTA B/L. No wheezes noted. HEART: Regular rate and rhythm, normal S1 and S2 without murmur, rub or gallop. ABDOMEN: Soft, nontender, not distended, normoactive bowel sounds, no guarding, no rebound, no masses. No hepatomegaly or splenomegaly. LOWER EXTREMITIES: 2+ pulses, warm, well-perfused. No calf tenderness. No peripheral edema. NEUROLOGICAL: Cranial nerves II-X intact. Normal speech. SKIN: Warm, dry, normal turgor, no rashes or lesions noted, normal capillary refill. CBC, BMP 11/28/18 05:30 11/27/18 05:30 Active Medications Acetaminophen (Tylenol -) 650 mg PO Q6H PRN PRN Reason: PAIN OR FEVER Last Admin: 11/28/18 06:23 Dose: 650 mg Aspirin (Ecotrin -) 81 mg PO DAILY [facility] Last Admin: 11/27/18 09:38 Dose: 81 mg Atorvastatin Calcium (Lipitor -) 80 mg PO HS [facility] Last Admin: 11/27/18 22:25 Dose: 80 mg Carvedilol (Coreg -) 6.25 mg PO BID [facility] Last Admin: 11/27/18 22:25 Dose: 6.25 mg Furosemide (Lasix Injection -) 40 mg IVPUSH DAILY [facility] Last Admin: 11/27/18 09:38 Dose: 40 mg Heparin Sodium (Porcine) (Heparin -) 1,000 unit IVPUSH PRN PRN PRN Reason: Heparin Heparin Sodium (Porcine) (Heparin -) 5,000 unit IVPUSH PRN PRN PRN Reason: Heparin Heparin Sodium (Porcine) 25, (000 unit/ Sodium Chloride) 500 mls @ 20 mls/hr IV TITR [facility]; Protocol Last Admin: 11/27/18 18:34 Dose: 1,000 unit/hr, 20 mls/hr Nicotine (Nicoderm Patch -) 21 mg TD DAILY [facility] Last Admin: 11/27/18 09:38 Dose: 21 mg Quinapril HCl (Accupril -) 5 mg PO DAILY [facility] Last Admin: 11/27/18 09:40 Dose: 5 mg Warfarin Sodium (Coumadin -) 7.5 mg PO DAILY@1800 [facility] Last Admin: 11/27/18 18:19 Dose: 7.5 mg CONSULT: Cardio- Dr. Ruiz Pulm- Dr. Selby IMAGING: * ECHO (11/25/18): LV grossly normal size. LV sys fxn severely reduced. Severe global hypokinesis of LV. Regional wall motion abnormalities cannot be excluded due to limited visualization. Cannot exclude apical thrombus. LA is moderately dilated. RA size is normal. Atrial septum is aneurysmal. Insufficient TR detected to calculate RV sys pressure. Trace to mild MR. * CTA: No evid of PE. Cardiomegaly and patchy groundglass opacification c/w CHF. R pleural effusion and bibasilar consolidation/atelectasis. * CXR: Large heart w/ congestive changes and ? superimposed infiltrates. * EKG (11/26/18): Sinus rhythm w/ shortened [place] interval. QTc 545. Inverted T waves have replaced nonspecific T wave abnormality in inferior leads. * ECHO (11/27/18): EF 20-25%. Severe global hypokinesis of the LV. Thrombus cannot be excluded. LV apex is not well visualized. LV is mildly dilated. ASSESSMENT/PLAN: 58F w/ pmhx tachycardia who comes into the the ED c/o acute onset SOB and palpitations. #Acute systolic CHF exacerbation -Retrieved prior records from daughter from [place]. Pt was previously diagnosed with +H.Pylori infection and given Omeprazole, Amoxicillin , Levofloxacin. No significant cardiac history per records. -Repeat ECHO noted above; remarkable for EF 20-25% with severe global hypokinesis of LV. -Cont ASA, Heparin drip (cannot exclude apical thrombus on ECHO), Lasix 40 IVP QD, Quinipril 5 PO QD, Carvedilol 3.12 BID, Atorvastatin 80 HS -Repeat ECHO still could not exclude thrombus. Currently on heparin drip for now ; Start Coumadin 7.5 QD as tele showed a flutter and a fib (CHADS-VASC 2). Check INR -Per cardio, increase to Carvedilol 6.25 BID, start Spironolactone 25 mg PO QD. Pt will likely need cath in the future due to clinical condition as discussed with cardio. -Stress test scheduled for Friday #Elevated trops -Mild elevated trop could be demand vs initial cardiac event, 0.17 > 0.66 > 0.63. EKG showed ST depression in lateral leads and J point elevation in anteroseptal leads and tachycardia. ST depression resolved with improvement in rate, but TWI is evident in lateral and inferior leads. -Cont ASA, statin, BB, ACEi #A. fib -cont BB and AC #Acute Hypoxic Respiratory Failure 2/2 pulmonary edema; resolved. -CTA showed no evid. of PE -Cont to monitor, currently on 3L NC satting at 95%. -Per pulm, cont NIPPV if pt develops increased respiratory distress; cont Lasix and O2 #Hx of Tobacco abuse -Nicotine patch -Smoking cessation counseling #FEN -no fluids indicated -lytes as above; replete PRN -Cholesterol/Fat-controlled diet #Prophylaxis -Heparin GTT #dispo -monitor on tele Visit type - Emergency Visit Emergency Visit: Yes ED Registration Date: 11/24/18 Care time: The patient presented to the Emergency Department on the above date and was hospitalized for further evaluation of their emergent condition. - New Patient This patient is new to me today: No - Critical Care Critical Care patient: No
--- NOTE | 2018-11-28 09:54 | PN ---
Progress Note, Physician History of Present Illness: pulmonary alert,feeling better,sob improving,-cp,-cough - Current Medication List Current Medications: Active Medications Acetaminophen (Tylenol -) 650 mg PO Q6H PRN PRN Reason: PAIN OR FEVER Last Admin: 11/28/18 06:23 Dose: 650 mg Aspirin (Ecotrin -) 81 mg PO DAILY [facility] Last Admin: 11/27/18 09:38 Dose: 81 mg Atorvastatin Calcium (Lipitor -) 80 mg PO HS [facility] Last Admin: 11/27/18 22:25 Dose: 80 mg Carvedilol (Coreg -) 6.25 mg PO BID [facility] Last Admin: 11/27/18 22:25 Dose: 6.25 mg Furosemide (Lasix Injection -) 40 mg IVPUSH DAILY [facility] Last Admin: 11/27/18 09:38 Dose: 40 mg Heparin Sodium (Porcine) (Heparin -) 1,000 unit IVPUSH PRN PRN PRN Reason: Heparin Heparin Sodium (Porcine) (Heparin -) 5,000 unit IVPUSH PRN PRN PRN Reason: Heparin Heparin Sodium (Porcine) 25, (000 unit/ Sodium Chloride) 500 mls @ 20 mls/hr IV TITR [facility]; Protocol Last Admin: 11/27/18 18:34 Dose: 1,000 unit/hr, 20 mls/hr Nicotine (Nicoderm Patch -) 21 mg TD DAILY [facility] Last Admin: 11/27/18 09:38 Dose: 21 mg Quinapril HCl (Accupril -) 5 mg PO DAILY [facility] Last Admin: 11/27/18 09:40 Dose: 5 mg Warfarin Sodium (Coumadin -) 7.5 mg PO DAILY@1800 [facility] Last Admin: 11/27/18 18:19 Dose: 7.5 mg - Objective Vital Signs: Vital Signs Temperature 97.5 F L 11/28/18 02:00 Pulse Rate 62 11/28/18 02:00 Respiratory Rate 18 11/28/18 02:00 Blood Pressure 97/69 11/28/18 02:00 O2 Sat by Pulse Oximetry (%) 95 11/27/18 19:50 Constitutional: Yes: Well Nourished, Calm Eyes: Yes: WNL HENT: Yes: WNL Neck: Yes: WNL Cardiovascular: Yes: Regular Rate and Rhythm, S1, S2 Respiratory: Yes: CTA Bilaterally Gastrointestinal: Yes: Normal Bowel Sounds, Soft Extremities: Yes: WNL Edema: No Labs: CBC, BMP 11/28/18 05:30 INR, PTT INR 1.13 (0.83-1.09) H 11/28/18 05:30 Assessment/Plan IMP ACUTE HYPOXEMIC RESPIRATORY FAILURE ACUTE ON CHRONIC CHF SEVERE LV DYSFUNCTION CARDIOMYOPATHY ? SECONDARY CHRONIC TACHYCARDIA,ISCHEMIA ? APICAL THROMBUS NSTEMI + TROPONIN SMOKER PLAN LASIX O2 DAILY WT F/U CHEST X-RAYS RATE CONTROL AC DR CORTÉS
[2018-11-28] MEDS: CARVEDILOL 6.25 MG TABLET (FP) PO SCH ×2 (11:40→22:20)
[2018-11-28] MEDS: ASPIRIN COATED 81 MG TABLET.EC PO SCH (11:40)
[2018-11-28] MEDS: FUROSEMIDE 40 MG/4 ML INJECTABLE VIAL IVPUSH SCH (11:40)
[2018-11-28] MEDS: NICOTINE 21 MG/24 HOURS TOPICAL PATCH TD SCH (11:40)
[2018-11-28] MEDS: QUINAPRIL HCL 5 MG TABLET (FP) PO SCH (11:41)
[2018-11-28] MEDS ORDERED: PT OWN MED DRAWER 7, Y5N ONE (11:41)
--- NOTE | 2018-11-28 13:37 | PN ---
Teaching Attending Note Name of Resident: Susan Sadler ATTENDING PHYSICIAN STATEMENT I saw and evaluated the patient. I reviewed the resident's note and discussed the case with the resident. I agree with the resident's findings and plan as documented. SUBJECTIVE: bologna maker phone used was SOB last night. No fever or chills . No abd pain. No ARROYO . no diarrhea OBJECTIVE: NAD CV: RRR, no MRG. +JVD Lungs: CTAB Ext: no edema on LE A/P : 58 y/o lady with h/o tachycardia, who presented who presented with SOB . She was found to have acute CHF exacerbation 1- New onset Acute systolic CHF exacerbation : improved. - cont current dose of lasix and ACEI. - cont coreg - add spironolactone - can' t r/o an apical thrombus. co nt ewith AC - cont heparin gtt for now and bridge to coumadin 2- New onset PAF: cont with coreg and ac 3- Elevated trop: demand ischemia Vs primary event. - cont ASA, statin , coreg, and ACEI - stress test on Friday 4-Nicotine dependence: nicotine patch HLOC
[2018-11-28] MEDS: WARFARIN NA 7.5 MG TABLET (FP) PO SCH (17:59)
[2018-11-28] MEDS: ATORVASTATIN CA 80 MG TABLET (FP) PO SCH (22:21)
[2018-11-29 07:34] LABS: HEMATOCRIT 38.5 % (32.4-45.2); HEMOGLOBIN 13.3 GM/dL (10.7-15.3); MCH 31.2 pg (25.7-33.7); MCHC 34.5 g/dl (32.0-36.0); MEAN CELL VOLUME 90.4 fl (80-96); MEAN PLT VOLUME 10.7 fl (7.5-11.1); PLATELET COUNT 204 K/MM3 (134-434); RBC 4.26 M/mm3 (3.60-5.2); RDW 15.2 % (11.6-15.6); WHITE BLOOD COUNT 5.4 K/mm3 (4.0-10.0)
--- NOTE | 2018-11-29 09:26 | PN ---
Progress Note, Physician History of Present Illness: 58 year old female with history of "tachycardia" presenting with sudden onset shortness of breath and respiratory difficulty of sudden onset 30 minutes before presentation. Patient is from [facility] for the past month and had no issues all day until these symptoms started. According to friend at bedside she began breathing rapidly and having palpitations. Denies any pain anywhere but kept clutching her epigastric region on exam. She has family members with heart problems but is not sure which ones. The only medication she is on is sedoxil (Mexazolam) for her "tachcyardia". Denies any recent fevers, chills nausea vomiting diarrhea or other symptoms. 11/24/18 21:50 - Current Medication List Current Medications: Active Medications Acetaminophen (Tylenol -) 650 mg PO Q6H PRN PRN Reason: PAIN OR FEVER Last Admin: 11/28/18 06:23 Dose: 650 mg Aspirin (Ecotrin -) 81 mg PO DAILY [facility] Last Admin: 11/28/18 11:40 Dose: 81 mg Atorvastatin Calcium (Lipitor -) 80 mg PO HS [facility] Last Admin: 11/28/18 22:21 Dose: 80 mg Carvedilol (Coreg -) 6.25 mg PO BID [facility] Last Admin: 11/28/18 22:20 Dose: 6.25 mg Furosemide (Lasix Injection -) 40 mg IVPUSH DAILY [facility] Last Admin: 11/28/18 11:40 Dose: 40 mg Heparin Sodium (Porcine) (Heparin -) 1,000 unit IVPUSH PRN PRN PRN Reason: Heparin Heparin Sodium (Porcine) (Heparin -) 5,000 unit IVPUSH PRN PRN PRN Reason: Heparin Heparin Sodium (Porcine) 25, (000 unit/ Sodium Chloride) 500 mls @ 20 mls/hr IV TITR [facility]; Protocol Last Admin: 11/27/18 18:34 Dose: 1,000 unit/hr, 20 mls/hr Nicotine (Nicoderm Patch -) 21 mg TD DAILY [facility] Last Admin: 11/28/18 11:40 Dose: 21 mg Quinapril HCl (Accupril -) 5 mg PO DAILY [facility] Last Admin: 11/28/18 11:41 Dose: 5 mg Spironolactone (Aldactone -) 25 mg PO DAILY [facility] Warfarin Sodium (Coumadin -) 7.5 mg PO DAILY@1800 [facility] Last Admin: 11/28/18 17:59 Dose: 7.5 mg - Objective Vital Signs: Vital Signs Temperature 97.9 F 11/29/18 06:00 Pulse Rate 43 L 11/29/18 06:00 Respiratory Rate 18 11/29/18 06:00 Blood Pressure 108/55 L 11/29/18 06:00 O2 Sat by Pulse Oximetry (%) 96 11/28/18 21:00 Eyes: Yes: WNL, Conjunctiva Clear, EOM Intact HENT: Yes: WNL, Atraumatic, Normocephalic Neck: Yes: WNL, Supple, Trachea Midline Cardiovascular: Yes: WNL, Regular Rate and Rhythm Respiratory: Yes: WNL, Regular, CTA Bilaterally Gastrointestinal: Yes: WNL, Normal Bowel Sounds Genitourinary: Yes: WNL Musculoskeletal: Yes: WNL Extremities: Yes: WNL Edema: No Integumentary: Yes: WNL Neurological: Yes: WNL, Alert, Oriented ...Motor Strength: WNL Psychiatric: Yes: WNL Labs: CBC, BMP 11/29/18 06:00 11/27/18 05:30 INR, PTT INR 1.13 (0.83-1.09) H 11/28/18 05:30 Problem List - Problems (1) Acute CHF Code(s): I50.9 - HEART FAILURE, UNSPECIFIED Qualifiers: Heart failure type: unspecified Qualified Code(s): I50.9 - Heart failure, unspecified (2) Acute respiratory failure with hypoxia Code(s): J96.01 - ACUTE RESPIRATORY FAILURE WITH HYPOXIA Assessment/Plan - Problems (1) Acute systolic CHF (congestive heart failure) Assessment/Plan: EKG initially: sinus tachycardia, LVH, STT changes r/u, e.g., ?repolarization changes vs ischemia). Telemetry: Brief periods of SVT, PAF. Elevated TNI. On lisinopril; increase dose as tolerated. Started carvedilol; increase dose.. Plan to start spironolactone. On furosemide 40 mg IVP daily. F/u TSH and lipids. F/u BUN/Cr, electrolytes, daily weight, Is and Os. Daughter says pt had extensive cardiac workup in [facility] [place] 09/2018 for similar symptoms; she will furnish the records. Will require coronary artery evaluation when stable; tentatively plan on stress MIBI next week. Code(s): I50.21 - ACUTE SYSTOLIC (CONGESTIVE) HEART FAILURE (2) Anxiety and depression Assessment/Plan: Joselin says her mother was the primary breadwinner for the entire family, at one time living in [place] alone for years to provide for her children. Now that the children are independent, she may be feeling "alone and useless" per daughter. She also was under a great deal of emotional stress and depression for the past several months. Code(s): F41.9 - ANXIETY DISORDER, UNSPECIFIED; F32.9 - MAJOR DEPRESSIVE DISORDER, SINGLE EPISODE, UNSPECIFIED (3) Cigarette nicotine dependence Assessment/Plan: Presently has no desire to smoke; consider starting nicotine patch (or consider Wellbutrin, in view of anxiety/depression and no hx seizures). Code(s): F17.210 - NICOTINE DEPENDENCE, CIGARETTES, UNCOMPLICATED (4) Hyperlipidemia Assessment/Plan: f/u lipid profile Code(s): E78.5 - HYPERLIPIDEMIA, UNSPECIFIED (5) Elevated troponin I level Assessment/Plan: TNI 0.17-->0.66-->0.63; corresponding CK levels WNL. EKG: sinus tachycardia; ?LAE; deepening STT changes. ECHO: severely reduced LVEF globally (though regional wall motion abrnormailties cannot be excluded); moderate LAE; possible LV apical thrombus; aneurysmal atrial septum; could not assess degree of TR (pulmonary HTN could not be ruled out). (f/u repeat ECHO on better-controlled HR). R/u coronary artery disease as source of TNI elevation; severe acute systolic CHF and (?longstanding) tachycardia are likely contibutors to demand ischemia. On IV heparin (elevated TNI; ?apical LV thrombus; PAF). Code(s): R74.8 - ABNORMAL LEVELS OF OTHER SERUM ENZYMES (6) LV (left ventricular) mural thrombus Code(s): I51.3 - INTRACARDIAC THROMBOSIS, NOT ELSEWHERE CLASSIFIED cont AC MIBI st in am to distinguish between ischemic and non ischemic CMP.
--- NOTE | 2018-11-29 10:19 | PN ---
Progress Note, Physician History of Present Illness: pulmonary alert,feeling better,-sob at rest,-cp - Current Medication List Current Medications: Active Medications Acetaminophen (Tylenol -) 650 mg PO Q6H PRN PRN Reason: PAIN OR FEVER Last Admin: 11/28/18 06:23 Dose: 650 mg Aspirin (Ecotrin -) 81 mg PO DAILY [facility] Last Admin: 11/28/18 11:40 Dose: 81 mg Atorvastatin Calcium (Lipitor -) 80 mg PO HS [facility] Last Admin: 11/28/18 22:21 Dose: 80 mg Carvedilol (Coreg -) 6.25 mg PO BID [facility] Last Admin: 11/28/18 22:20 Dose: 6.25 mg Furosemide (Lasix Injection -) 40 mg IVPUSH DAILY [facility] Last Admin: 11/28/18 11:40 Dose: 40 mg Heparin Sodium (Porcine) (Heparin -) 1,000 unit IVPUSH PRN PRN PRN Reason: Heparin Heparin Sodium (Porcine) (Heparin -) 5,000 unit IVPUSH PRN PRN PRN Reason: Heparin Heparin Sodium (Porcine) 25, (000 unit/ Sodium Chloride) 500 mls @ 20 mls/hr IV TITR [facility]; Protocol Last Admin: 11/27/18 18:34 Dose: 1,000 unit/hr, 20 mls/hr Nicotine (Nicoderm Patch -) 21 mg TD DAILY [facility] Last Admin: 11/28/18 11:40 Dose: 21 mg Quinapril HCl (Accupril -) 5 mg PO DAILY [facility] Last Admin: 11/28/18 11:41 Dose: 5 mg Spironolactone (Aldactone -) 25 mg PO DAILY [facility] Warfarin Sodium (Coumadin -) 7.5 mg PO DAILY@1800 [facility] Last Admin: 11/28/18 17:59 Dose: 7.5 mg - Objective Vital Signs: Vital Signs Temperature 97.9 F 11/29/18 06:00 Pulse Rate 43 L 11/29/18 06:00 Respiratory Rate 18 11/29/18 06:00 Blood Pressure 108/55 L 11/29/18 06:00 O2 Sat by Pulse Oximetry (%) 96 11/28/18 21:00 Constitutional: Yes: Well Nourished, Calm Eyes: Yes: WNL HENT: Yes: WNL Neck: Yes: WNL Cardiovascular: Yes: Regular Rate and Rhythm, S1, S2 Respiratory: Yes: Diminished Gastrointestinal: Yes: Normal Bowel Sounds, Soft Extremities: Yes: WNL Edema: No Labs: CBC, BMP 11/29/18 06:00 Assessment/Plan IMP ACUTE HYPOXEMIC RESPIRATORY FAILURE ACUTE ON CHRONIC CHF IMPROVING SEVERE LV DYSFUNCTION CARDIOMYOPATHY ? SECONDARY CHRONIC TACHYCARDIA,ISCHEMIA ? APICAL THROMBUS NSTEMI + TROPONIN SMOKER PLAN LASIX O2 DAILY WT F/U CHEST X-RAYS RATE CONTROL AC DR CORTÉS
[2018-11-29] MEDS ORDERED: PT OWN MED DRAWER 7, Y5N ONE (12:08)
[2018-11-29] MEDS: ASPIRIN COATED 81 MG TABLET.EC PO SCH (12:43)
[2018-11-29] MEDS: SPIRONOLACTONE 25 MG TABLET (FP) PO SCH (12:43)
[2018-11-29] MEDS: NICOTINE 21 MG/24 HOURS TOPICAL PATCH TD SCH (12:43)
[2018-11-29] MEDS: FUROSEMIDE 40 MG/4 ML INJECTABLE VIAL IVPUSH SCH (12:44)
[2018-11-29] MEDS: CARVEDILOL 6.25 MG TABLET (FP) PO SCH ×2 (12:44→22:41)
[2018-11-29] MEDS: QUINAPRIL HCL 5 MG TABLET (FP) PO SCH (12:44)
--- NOTE | 2018-11-29 15:19 | PN ---
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 No OSB . no cough Objective: Vital Signs: Last Vital Signs Temp Pulse Resp BP Pulse Ox 98.2 F 87 18 134/58 L 98 11/29/18 14:00 11/29/18 14:00 11/29/18 14:00 11/29/18 14:00 11/29/18 09:00 Laboratory Results - last 24 hr 11/29/18 11/29/18 06:00 10:00 WBC 5.4 RBC 4.26 Hgb 13.3 Hct 38.5 MCV 90.4 MCH 31.2 MCHC 34.5 RDW 15.2 Plt Count 204 MPV 10.7 PTT (Actin FS) 80.2 H Physical Exam: NAD CV: RRR, no MRG. No JVD today Lungs: CTAB Ext: no edema on LE A/P : 58 y/o lady with h/o tachycardia, who presented who presented with SOB . She was found to have acute CHF exacerbation 1- New onset Acute systolic CHF exacerbation : improved. - cont current dose of lasix and ACEI. - cont coreg - cont spironolactone - can' t r/o an apical thrombus. cont with AC - cont heparin gtt for now and bridge to coumadin 2- New onset PAfib: cont with coreg and AC tele reviewed. 3- Elevated trop: demand ischemia Vs primary event. - cont ASA, statin, coreg, and ACEI - stress test on Friday . will ask card if AC need to be held for a planned cath ( if available ) 4-Nicotine dependence: nicotine patch Visit type - Emergency Visit Emergency Visit: Yes ED Registration Date: 11/24/18 Care time: The patient presented to the Emergency Department on the above date and was hospitalized for further evaluation of their emergent condition. - New Patient This patient is new to me today: No - Critical Care Critical Care patient: No
[2018-11-29 15:32] LABS: INR 2.48 (0.83-1.09); PROTHROMBIN TIME (PATIENT) 29.5 SEC (9.7-13.0)
[2018-11-29] MEDS: WARFARIN NA 7.5 MG TABLET (FP) PO SCH (19:00)
[2018-11-29] MEDS: ATORVASTATIN CA 80 MG TABLET (FP) PO SCH (22:41)
[2018-11-30 06:22] LABS: HEMATOCRIT 38.5 % (32.4-45.2); HEMOGLOBIN 12.9 GM/dL (10.7-15.3); MCH 30.2 pg (25.7-33.7); MCHC 33.6 g/dl (32.0-36.0); MEAN CELL VOLUME 89.8 fl (80-96); MEAN PLT VOLUME 10.4 fl (7.5-11.1); PLATELET COUNT 201 K/MM3 (134-434); RBC 4.29 M/mm3 (3.60-5.2); RDW 15.1 % (11.6-15.6); WHITE BLOOD COUNT 4.3 K/mm3 (4.0-10.0)
[2018-11-30] MEDS ORDERED: PT OWN MED DRAWER 7, Y5N ONE (09:57)
[2018-11-30] MEDS: NICOTINE 21 MG/24 HOURS TOPICAL PATCH TD SCH (10:17)
--- NOTE | 2018-11-30 10:28 | PN ---
Progress Note, Physician History of Present Illness: PULMONARY ALERT,FEELING BETTER,LESS BORJAS,-SOB AT REST - Current Medication List Current Medications: Active Medications Acetaminophen (Tylenol -) 650 mg PO Q6H PRN PRN Reason: PAIN OR FEVER Last Admin: 11/28/18 06:23 Dose: 650 mg Aspirin (Ecotrin -) 81 mg PO DAILY [facility] Last Admin: 11/29/18 12:43 Dose: 81 mg Atorvastatin Calcium (Lipitor -) 80 mg PO HS [facility] Last Admin: 11/29/18 22:41 Dose: 80 mg Carvedilol (Coreg -) 6.25 mg PO BID [facility] Last Admin: 11/29/18 22:41 Dose: 6.25 mg Furosemide (Lasix Injection -) 40 mg IVPUSH DAILY [facility] Last Admin: 11/29/18 12:44 Dose: 40 mg Heparin Sodium (Porcine) (Heparin -) 1,000 unit IVPUSH PRN PRN PRN Reason: Heparin Heparin Sodium (Porcine) (Heparin -) 5,000 unit IVPUSH PRN PRN PRN Reason: Heparin Heparin Sodium (Porcine) 25, (000 unit/ Sodium Chloride) 500 mls @ 20 mls/hr IV TITR [facility]; Protocol Last Titration: 11/29/18 12:49 Dose: 950 unit/hr, 19 mls/hr Nicotine (Nicoderm Patch -) 21 mg TD DAILY [facility] Last Admin: 11/30/18 10:17 Dose: 21 mg Quinapril HCl (Accupril -) 5 mg PO DAILY [facility] Last Admin: 11/29/18 12:44 Dose: 5 mg Spironolactone (Aldactone -) 25 mg PO DAILY [facility] Last Admin: 11/29/18 12:43 Dose: 25 mg Warfarin Sodium (Coumadin -) 7.5 mg PO DAILY@1800 [facility] Last Admin: 11/29/18 19:00 Dose: 7.5 mg - Objective Vital Signs: Vital Signs Temperature 99 F 11/30/18 09:00 Pulse Rate 70 11/30/18 09:00 Respiratory Rate 18 11/30/18 09:00 Blood Pressure 110/64 11/30/18 09:00 O2 Sat by Pulse Oximetry (%) 98 11/29/18 21:00 Constitutional: Yes: Well Nourished, Calm Eyes: Yes: WNL HENT: Yes: WNL Neck: Yes: WNL Cardiovascular: Yes: Regular Rate and Rhythm, S1, S2 Respiratory: Yes: CTA Bilaterally Gastrointestinal: Yes: Normal Bowel Sounds, Soft Extremities: Yes: WNL Edema: No Labs: CBC, BMP 11/30/18 05:30 Assessment/Plan IMP ACUTE HYPOXEMIC RESPIRATORY FAILURE ACUTE ON CHRONIC CHF IMPROVING SEVERE LV DYSFUNCTION CARDIOMYOPATHY ? SECONDARY CHRONIC TACHYCARDIA,ISCHEMIA ? APICAL THROMBUS NSTEMI + TROPONIN SMOKER PLAN LASIX O2 DAILY WT F/U CHEST X-RAYS RATE CONTROL AC ? CATH DR CORTÉS .
--- NOTE | 2018-11-30 13:03 | PN ---
Progress Note, Physician History of Present Illness: 58 year old female with history of "tachycardia" presenting with sudden onset shortness of breath and respiratory difficulty of sudden onset 30 minutes before presentation. Patient is from [facility] for the past month and had no issues all day until these symptoms started. According to friend at bedside she began breathing rapidly and having palpitations. Denies any pain anywhere but kept clutching her epigastric region on exam. She has family members with heart problems but is not sure which ones. The only medication she is on is sedoxil (Mexazolam) for her "tachcyardia". Denies any recent fevers, chills nausea vomiting diarrhea or other symptoms. 11/24/18 21:50 - Current Medication List Current Medications: Active Medications Acetaminophen (Tylenol -) 650 mg PO Q6H PRN PRN Reason: PAIN OR FEVER Last Admin: 11/28/18 06:23 Dose: 650 mg Aspirin (Ecotrin -) 81 mg PO DAILY [facility] Last Admin: 11/29/18 12:43 Dose: 81 mg Atorvastatin Calcium (Lipitor -) 80 mg PO HS [facility] Last Admin: 11/29/18 22:41 Dose: 80 mg Carvedilol (Coreg -) 6.25 mg PO BID [facility] Last Admin: 11/29/18 22:41 Dose: 6.25 mg Furosemide (Lasix Injection -) 40 mg IVPUSH DAILY [facility] Last Admin: 11/29/18 12:44 Dose: 40 mg Heparin Sodium (Porcine) (Heparin -) 5,000 unit IVPUSH PRN PRN PRN Reason: Heparin Nicotine (Nicoderm Patch -) 21 mg TD DAILY [facility] Last Admin: 11/30/18 10:17 Dose: 21 mg Quinapril HCl (Accupril -) 5 mg PO DAILY [facility] Last Admin: 11/29/18 12:44 Dose: 5 mg Spironolactone (Aldactone -) 25 mg PO DAILY [facility] Last Admin: 11/29/18 12:43 Dose: 25 mg Warfarin Sodium (Coumadin -) 7.5 mg PO DAILY@1800 [facility] Last Admin: 11/29/18 19:00 Dose: 7.5 mg - Objective Vital Signs: Vital Signs Temperature 99 F 11/30/18 09:00 Pulse Rate 70 11/30/18 09:00 Respiratory Rate 18 11/30/18 09:00 Blood Pressure 110/64 11/30/18 09:00 O2 Sat by Pulse Oximetry (%) 98 11/29/18 21:00 Eyes: Yes: WNL, Conjunctiva Clear, EOM Intact HENT: Yes: WNL, Atraumatic, Normocephalic Neck: Yes: WNL, Supple, Trachea Midline Cardiovascular: Yes: WNL, Regular Rate and Rhythm Respiratory: Yes: WNL, Regular, CTA Bilaterally Gastrointestinal: Yes: WNL, Normal Bowel Sounds Genitourinary: Yes: WNL Musculoskeletal: Yes: WNL Extremities: Yes: WNL Edema: No Integumentary: Yes: WNL Neurological: Yes: WNL, Alert, Oriented ...Motor Strength: WNL Psychiatric: Yes: WNL Labs: CBC, BMP 11/30/18 05:30 11/27/18 05:30 INR, PTT INR 2.48 (0.83-1.09) H 11/29/18 14:45 Problem List - Problems (1) Acute CHF Code(s): I50.9 - HEART FAILURE, UNSPECIFIED Qualifiers: Heart failure type: unspecified Qualified Code(s): I50.9 - Heart failure, unspecified (2) Acute respiratory failure with hypoxia Code(s): J96.01 - ACUTE RESPIRATORY FAILURE WITH HYPOXIA Assessment/Plan - Problems (1) Acute systolic CHF (congestive heart failure) Assessment/Plan: EKG initially: sinus tachycardia, LVH, STT changes r/u, e.g., ?repolarization changes vs ischemia). Telemetry: Brief periods of SVT, PAF. Elevated TNI. On lisinopril; increase dose as tolerated. carvedilol will increase dose.to 12.5 BID. Plan to start spironolactone. On furosemide 40 mg IVP daily.May chaNGE TO PO. F/u TSH and lipids. F/u BUN/Cr, electrolytes, daily weight, Is and Os. Daughter says pt had extensive cardiac workup in [place] 09/2018 for similar symptoms; she will furnish the records. Will require coronary artery evaluation when stable; tentatively plan on stress MIBI next week. Code(s): I50.21 - ACUTE SYSTOLIC (CONGESTIVE) HEART FAILURE (2) Anxiety and depression Assessment/Plan: Janiether says her mother was the primary breadwinner for the entire family, at one time living in [place] alone for years to provide for her children. Now that the children are independent, she may be feeling "alone and useless" per daughter. She also was under a great deal of emotional stress and depression for the past several months. Code(s): F41.9 - ANXIETY DISORDER, UNSPECIFIED; F32.9 - MAJOR DEPRESSIVE DISORDER, SINGLE EPISODE, UNSPECIFIED (3) Cigarette nicotine dependence Assessment/Plan: Presently has no desire to smoke; consider starting nicotine patch (or consider Wellbutrin, in view of anxiety/depression and no hx seizures). Code(s): F17.210 - NICOTINE DEPENDENCE, CIGARETTES, UNCOMPLICATED (4) Hyperlipidemia Assessment/Plan: f/u lipid profile Code(s): E78.5 - HYPERLIPIDEMIA, UNSPECIFIED (5) Elevated troponin I level Assessment/Plan: TNI 0.17-->0.66-->0.63; corresponding CK levels WNL. EKG: sinus tachycardia; ?LAE; deepening STT changes. ECHO: severely reduced LVEF globally (though regional wall motion abrnormailties cannot be excluded); moderate LAE; possible LV apical thrombus; aneurysmal atrial septum; could not assess degree of TR (pulmonary HTN could not be ruled out). (f/u repeat ECHO on better-controlled HR). R/u coronary artery disease as source of TNI elevation; severe acute systolic CHF and (?longstanding) tachycardia are likely contibutors to demand ischemia. On IV heparin (elevated TNI; ?apical LV thrombus; PAF). Code(s): R74.8 - ABNORMAL LEVELS OF OTHER SERUM ENZYMES (6) LV (left ventricular) mural thrombus Code(s): I51.3 - INTRACARDIAC THROMBOSIS, NOT ELSEWHERE CLASSIFIED cont AC d/c heparin for INR more than [address] in am to distinguish between ischemic and non ischemic CMP.
[2018-11-30] MEDS ORDERED: AMINOPHYLLINE 250 MG/10 ML VIAL ONE (13:57)
[2018-11-30] MEDS ORDERED: REGADENOSON 0.4 MG/5 ML PRE-FILLED SYRINGE IVPUSH ONE ×2 (13:58→14:15)
[2018-11-30] MEDS ORDERED: AMINOPHYLLINE 250 MG/10 ML VIAL IVPB ONE (14:15)
[2018-11-30] MEDS: ASPIRIN COATED 81 MG TABLET.EC PO SCH (14:39)
[2018-11-30] MEDS: QUINAPRIL HCL 5 MG TABLET (FP) PO SCH (14:39)
[2018-11-30] MEDS: SPIRONOLACTONE 25 MG TABLET (FP) PO SCH (14:39)
--- NOTE | 2018-11-30 14:51 | PN ---
Teaching Attending Note Name of Resident: Kristain Lecah ATTENDING PHYSICIAN STATEMENT I saw and evaluated the patient. I reviewed the resident's note and discussed the case with the resident. I agree with the resident's findings and plan as documented. SUBJECTIVE: No fever or chills . No SOB. OBJECTIVE: NAD CV: RRR, no MRG. No JVD but has + hepatojugular reflux Lungs: CTAB Ext: no edema on LE A/P : 58 y/o lady with h/o tachycardia, who presented who presented with SOB . She was found to have acute CHF exacerbation 1- New onset Acute systolic CHF exacerbation: improved. - cont current dose of lasix and ACEI. - cont coreg - cont spironolactone - can' t r/o an apical thrombus. cont with AC - cont heparin gtt for now pending stress test. d/w Dr. small 2- New onset PAfib: cont with coreg and AC. INR is therapeutic, but will decide on heaprin gtt after stress test . tele reviewed. decrease and give 5 mg of coumadin tonight 3- Elevated trop: demand ischemia Vs primary event. - cont ASA, statin, coreg, and ACEI -order Katharine scan for today. 4-Nicotine dependence: nicotine patch Dispo : still [facility]LOC
[2018-11-30] MEDS ORDERED: WARFARIN NA 5 MG TABLET (UD) PO SCH (18:00)
--- NOTE | 2018-11-30 19:45 | PN ---
Physical Exam: SUBJECTIVE: Patient seen and examined at bedside. Resting comfortably in bed. No acute complaints. Denies chest pain or shortness of breath. Daughter at bedside. OBJECTIVE: Vital Signs Period Temp Pulse Resp BP Sys/Jeffries Pulse Ox Last 24 Hr 97.4 F-99 F 70-81 18-20 100-127/52-79 98-98 GENERAL: AAOx3 NAD EYES:extraocular movements intact, sclera anicteric, conjunctiva clear. NECK: + hepatojugular reflux LUNGS: DEC BS @ Bases HEART: RRR S1S2 ABDOMEN: NDNT No HSM EXTREMITIES: No pedel edema appreciated PSYCH: Normal mood, normal affect. SKIN: Warm, dry, normal turgor, no rashes or lesions noted Laboratory Results - last 24 hr 11/30/18 11/30/18 11/30/18 05:30 05:30 11:46 WBC 4.3 RBC 4.29 Hgb 12.9 Hct 38.5 MCV 89.8 MCH 30.2 MCHC 33.6 RDW 15.1 Plt Count 201 MPV 10.4 PTT (Actin FS) 121.1 H POC Glucometer 99 11/30/18 17:55 WBC RBC Hgb Hct MCV MCH MCHC RDW Plt Count MPV PTT (Actin FS) POC Glucometer 104 Active Medications Generic Name Dose Route Start Last Admin Trade Name Freq PRN Reason Stop Dose Admin Acetaminophen 650 mg 11/27/18 20:59 11/28/18 06:23 Tylenol - PO 650 mg Q6H PRN Administration PAIN OR FEVER Aspirin 81 mg 11/25/18 10:00 11/30/18 14:39 Ecotrin - PO 81 mg DAILY [facility] Administration Atorvastatin Calcium 80 mg 11/25/18 22:00 11/29/18 22:41 Lipitor - PO 80 mg HS [facility] Administration Carvedilol 12.5 mg 11/30/18 22:00 Coreg - PO BID [facility] Furosemide 40 mg 12/01/18 10:00 Lasix - PO DAILY [facility] Nicotine 21 mg 11/27/18 10:00 11/30/18 10:17 Nicoderm Patch - TD 21 mg DAILY [facility] Administration Quinapril HCl 5 mg 11/25/18 13:00 11/30/18 14:39 Accupril - PO 5 mg DAILY [facility] Administration Spironolactone 25 mg 11/29/18 10:00 11/30/18 14:39 Aldactone - PO 25 mg DAILY [facility] Administration Warfarin Sodium 5 mg 11/30/18 18:00 11/30/18 18:12 Coumadin - PO 5 mg DAILY@1800 [facility] Administration ASSESSMENT/PLAN: 58F w/ pmhx tachycardia who comes into the the ED c/o acute onset SOB and palpitations. #Acute systolic CHF exacerbation - ECHO remarkable for EF 20-25% with severe global hypokinesis of LV. -Cont ASA, Heparin drip (cannot exclude apical thrombus on ECHO), Lasix 40 PO QD , Quinipril 5 PO QD, Carvedilol 12.5 BID, Atorvastatin 80 HS -Repeat ECHO still could not exclude thrombus. Coumadin decreased to 5.0 QD. Check INR in am Carvedilol 12.25 BID, Spironolactone 25 mg PO QD. Pt will likely need cath in the future due to clinical condition as discussed with cardio. - Lexiscan performed today 11/30/18. Moderate Zone of inferior, inferolateral, inferoapical reversible defect compatible with mild intensity ischemia. Severely reduced LVEF of 22% post lexiscan and 23% at rest. #Elevated trops -Mild elevated trop could be demand vs initial cardiac event, 0.17 > 0.66 > 0.63. EKG showed ST depression in lateral leads and J point elevation in anteroseptal leads and tachycardia. ST depression resolved with improvement in rate, but TWI is evident in lateral and inferior leads. -Cont ASA, statin, BB, ACEi #A. fib -cont BB and AC #Hx of Tobacco abuse -Nicotine patch -Smoking cessation counseling #FEN -no fluids indicated -lytes as above; replete PRN -Cholesterol/Fat-controlled diet #Prophylaxis -Heparin GTT, Coumadin 5 po QHS #dispo -monitor on tele Visit type - Emergency Visit Emergency Visit: Yes ED Registration Date: 11/24/18 Care time: The patient presented to the Emergency Department on the above date and was hospitalized for further evaluation of their emergent condition. - New Patient This patient is new to me today: Yes Date on this admission: 11/30/18 - Critical Care Critical Care patient: No - Discharge Referral Referred to [facility] Med P.C[facility] No
[2018-11-30] MEDS: ATORVASTATIN CA 80 MG TABLET (FP) PO SCH (21:59)
[2018-11-30] MEDS: CARVEDILOL 12.5 MG TABLET (FP) PO SCH (21:59)
[2018-12-01 07:17] LABS: HEMATOCRIT 38.7 % (32.4-45.2); MCHC 33.5 g/dl (32.0-36.0); MEAN CELL VOLUME 89.5 fl (80-96); MEAN PLT VOLUME 10.7 fl (7.5-11.1); PLATELET COUNT 189 K/MM3 (134-434); RBC 4.32 M/mm3 (3.60-5.2); RDW 14.9 % (11.6-15.6); WHITE BLOOD COUNT 3.2 K/mm3 (4.0-10.0)
[2018-12-01 09:02] LABS: ANION GAP 8 MMOL/L (8-16); CALCIUM 9.5 mg/dL (8.5-10.1); CHLORIDE 106 mmol/L (98-107); CO2 25 mmol/L (21-32); CREATININE 0.7 mg/dL (0.55-1.3); GLUCOSE,RANDOM 88 mg/dL (74-106); MAGNESIUM 2.2 mg/dL (1.8-2.4); POTASSIUM 4.3 mmol/L (3.5-5.1); SODIUM 139 mmol/L (136-145)
[2018-12-01] MEDS: ASPIRIN COATED 81 MG TABLET.EC PO SCH (09:17)
[2018-12-01] MEDS: FUROSEMIDE 40 MG TABLET (FP) PO SCH (09:17)
[2018-12-01] MEDS: SPIRONOLACTONE 25 MG TABLET (FP) PO SCH (09:17)
[2018-12-01] MEDS: CARVEDILOL 12.5 MG TABLET (FP) PO SCH (09:17)
[2018-12-01] MEDS: NICOTINE 21 MG/24 HOURS TOPICAL PATCH TD SCH (09:18)
[2018-12-01] MEDS: QUINAPRIL HCL 5 MG TABLET (FP) PO SCH (09:18)
[2018-12-01 10:18] LABS: PROTHROMBIN TIME (PATIENT) 53.5 SEC (9.7-13.0)
[2018-12-01 10:43] LABS: INR 4.47 (0.83-1.09)
[2018-12-01 12:36] LABS: BLOOD UREA NITROGEN 20 mg/dL (7-18)
--- NOTE | 2018-12-01 14:53 | PN ---
Progress Note, Physician Chief Complaint: Pt is A&Ox3; no chest pain or dyspnea. Her daughter is at bedside. History of Present Illness: 58 year old female (b. [facility]) with history of "tachycardia", long- term cigarettes (1/2 ppd for past 40 + years), anxeity/depression (per pt and daughter), presenting with sudden onset shortness of breath and respiratory difficulty of sudden onset 30 minutes before presentation. Patient is from [facility] visiting for the past month and had no issues all day until these symptoms started. According to friend at bedside she began breathing rapidly and having palpitations. Denies any pain anywhere but kept clutching her epigastric region on exam. She has family members with heart problems but is not sure which ones. The only medication she is on is sedoxil (Mexazolam) for her "tachycardia". Denies any recent fevers, chills nausea vomiting diarrhea or other symptoms. Hx working for 30 years in [employer], then came to [place] several months ago to help care for grandchildren. Pt says that symptoms of weakness and dyspnea began 09/2018 while in [facility] [place]. She had many tests there, and was told her heart was fine, but she had a "virus" in her stomach (periods of palpitations are occasionally felt in the abdomen, then travel into the chest). - Current Medication List Current Medications: Active Medications Acetaminophen (Tylenol -) 650 mg PO Q6H PRN PRN Reason: PAIN OR FEVER Last Admin: 11/28/18 06:23 Dose: 650 mg Aspirin (Ecotrin -) 81 mg PO DAILY [facility] Last Admin: 12/01/18 09:17 Dose: 81 mg Atorvastatin Calcium (Lipitor -) 80 mg PO HS [facility] Last Admin: 11/30/18 21:59 Dose: 80 mg Carvedilol (Coreg -) 12.5 mg PO BID [facility] Last Admin: 12/01/18 09:17 Dose: 12.5 mg Furosemide (Lasix -) 40 mg PO DAILY [facility] Last Admin: 12/01/18 09:17 Dose: 40 mg Nicotine (Nicoderm Patch -) 21 mg TD DAILY [facility] Last Admin: 12/01/18 09:18 Dose: 21 mg Quinapril HCl (Accupril -) 5 mg PO DAILY [facility] Last Admin: 12/01/18 09:18 Dose: 5 mg Spironolactone (Aldactone -) 25 mg PO DAILY [facility] Last Admin: 12/01/18 09:17 Dose: 25 mg - Objective Vital Signs: Vital Signs Temperature 98.3 F 12/01/18 09:00 Pulse Rate 67 12/01/18 09:00 Respiratory Rate 18 12/01/18 09:00 Blood Pressure 90/37 L 12/01/18 09:00 O2 Sat by Pulse Oximetry (%) 100 12/01/18 09:00 Constitutional: Yes: No Distress Eyes: Yes: WNL HENT: Yes: WNL Neck: Yes: WNL Cardiovascular: Yes: S1, S2 Respiratory: Yes: Regular Gastrointestinal: Yes: Soft ...Rectal Exam: Yes: Deferred Genitourinary: No: Anuria Breast(s): Yes: WNL Musculoskeletal: Yes: WNL Extremities: Yes: WNL Edema: No Peripheral Pulses WNL: Yes Integumentary: Yes: WNL Neurological: Yes: WNL ...Motor Strength: WNL Psychiatric: Yes: WNL Labs: CBC, BMP 12/01/18 06:10 12/01/18 06:10 INR, PTT INR 4.47 (0.83-1.09) H* 12/01/18 06:10 Abnormal Lab Results 12/01/18 12/01/18 12/01/18 06:10 06:10 06:10 WBC 3.2 L PT with INR INR PTT ([facility] FS) 39.0 H BUN 20 H 12/01/18 06:10 WBC PT with INR 53.50 H INR 4.47 H* PTT (Actin FS) BUN - ....Imaging Other: Image Reviewed (telemetry: NSR: no arrhythmias) Problem List - Problems (1) Acute systolic CHF (congestive heart failure) Assessment/Plan: ECHO: severely reduced LVEF; dilated LV; cannot exclude LV thrombus. Elevated TNI, EKG changes of NSTEMI. BNP 4451 CT chest: congestive changes Stress MIBI: areas of inferior and anterior myocardial ischemia. Plan: Continue lisinopril. Started carvedilol; increase dose, as tolerated, to 25 mg bid. On spironolactone 25 mg daily. On furosemide 40 mg PO daily. On warfarin for LV thrombus, PAF; hold today (INR>4). TSH WNL. Elevated LDL cholesterol--> now on high-dose atorvastatin (NSTEMI; hyperlipidemia). F/u BUN/Cr, electrolytes, daily weight, Is and Os. Pt requires right and left-heart catheterization. Stop warfarin and restart IV heparin once pt is accepted for coronary catheterization. Code(s): I50.21 - ACUTE SYSTOLIC (CONGESTIVE) HEART FAILURE (2) Anxiety and depression Assessment/Plan: Joselin says her mother was the primary breadwinner for the entire family, at one time living in [place] alone for years to provide for her children. Now that the children are independent, she may be feeling "alone and useless" per daughter. She also was under a great deal of emotional stress and depression for the past several months. Code(s): F41.9 - ANXIETY DISORDER, UNSPECIFIED; F32.9 - MAJOR DEPRESSIVE DISORDER, SINGLE EPISODE, UNSPECIFIED (3) Cigarette nicotine dependence Assessment/Plan: Now on nicotine patch. Code(s): F17.210 - NICOTINE DEPENDENCE, CIGARETTES, UNCOMPLICATED (4) Hyperlipidemia Assessment/Plan: elevated LDL. On atorvastatin. Code(s): E78.5 - HYPERLIPIDEMIA, UNSPECIFIED (5) Elevated troponin I level Assessment/Plan: NSTEMI: TNI 0.17-->0.66-->0.63. EKG: sinus tachycardia; ?LAE; deepening STT changes. ECHO: severely reduced LVEF globally (though regional wall motion abnormalities cannot be excluded); moderate LAE; possible LV apical thrombus; aneurysmal atrial septum. Stress Lexiscan MIBI: inferior and anterior ischemia. Continue ASA, warfarin (change to IV heparin when pt is accepted for coronary angiogram), atorvastatin, carvedilol, lisinopril, spironolactone. For coronary angiogram. Code(s): R74.8 - ABNORMAL LEVELS OF OTHER SERUM ENZYMES (6) LV (left ventricular) mural thrombus Code(s): I51.3 - INTRACARDIAC THROMBOSIS, NOT ELSEWHERE CLASSIFIED
--- NOTE | 2018-12-01 16:05 | PN ---
Physical Exam: SUBJECTIVE: Patient seen and examined at bedside. Endorses no shortness of breath or chest pain. No acute events overnight. OBJECTIVE: Vital Signs Period Temp Pulse Resp BP Sys/Jeffries Pulse Ox Last 24 Hr 97.3 F-98.3 F 57-74 18-20 90-149/37-67 98-100 GENERAL: AAOx3 NAD EYES:extraocular movements intact, sclera anicteric, conjunctiva clear. NECK: Supple Trachea midline LUNGS: DEC BS @ Bases. Good inspiratory effort HEART: RRR S1S2 ABDOMEN: NDNT No HSM EXTREMITIES: No pedel edema appreciated PSYCH: Normal mood, normal affect. SKIN: Warm, dry, normal turgor, no rashes or lesions noted Laboratory Results - last 24 hr 11/30/18 12/01/18 12/01/18 17:55 06:10 06:10 WBC 3.2 L RBC 4.32 Hgb 13.0 Hct 38.7 MCV 89.5 MCH 30.0 MCHC 33.5 RDW 14.9 Plt Count 189 MPV 10.7 PT with INR INR PTT (Actin FS) 39.0 H Sodium Potassium Chloride Carbon Dioxide Anion Gap BUN Creatinine Creat Clearance w eGFR POC Glucometer 104 Random Glucose Calcium Phosphorus Magnesium 12/01/18 12/01/18 12/01/18 06:10 06:10 11:10 WBC RBC Hgb Hct MCV MCH MCHC RDW Plt Count MPV PT with INR 53.50 H INR 4.47 H* PTT (Actin FS) Sodium 139 Potassium 4.3 Chloride 106 Carbon Dioxide 25 Anion Gap 8 BUN 20 H Creatinine 0.7 Creat Clearance w eGFR > 60 POC Glucometer 117 Random Glucose 88 Calcium 9.5 Phosphorus 4.0 Magnesium 2.2 Active Medications Generic Name Dose Route Start Last Admin Trade Name Freq PRN Reason Stop Dose Admin Acetaminophen 650 mg 11/27/18 20:59 11/28/18 06:23 Tylenol - PO 650 mg Q6H PRN Administration PAIN OR FEVER Aspirin 81 mg 11/25/18 10:00 12/01/18 09:17 Ecotrin - PO 81 mg DAILY [facility] Administration Atorvastatin Calcium 80 mg 11/25/18 22:00 11/30/18 21:59 Lipitor - PO 80 mg HS [facility] Administration Carvedilol 12.5 mg 11/30/18 22:00 12/01/18 09:17 Coreg - PO 12.5 mg BID [facility] Administration Furosemide 40 mg 12/01/18 10:00 12/01/18 09:17 Lasix - PO 40 mg DAILY [facility] Administration Nicotine 21 mg 11/27/18 10:00 12/01/18 09:18 Nicoderm Patch - TD 21 mg DAILY [facility] Administration Quinapril HCl 5 mg 11/25/18 13:00 12/01/18 09:18 Accupril - PO 5 mg DAILY [facility] Administration Spironolactone 25 mg 11/29/18 10:00 12/01/18 09:17 Aldactone - PO 25 mg DAILY [facility] Administration ASSESSMENT/PLAN: 58F w/ pmhx tachycardia who comes into the the ED c/o acute onset SOB and palpitations. #Acute systolic CHF exacerbation - ECHO remarkable for EF 20-25% with severe global hypokinesis of LV. -Cont ASA, Heparin drip (cannot exclude apical thrombus on ECHO), Lasix 40 PO QD , Quinipril 5 PO QD, Carvedilol 12.5 BID, Atorvastatin 80 HS -Repeat ECHO still could not exclude thrombus. - INR 4.47. Coumadin stopped. Repeat INR in am Carvedilol 25 BID, Spironolactone 25 mg PO QD. Pt will need cath in the future due to clinical condition as discussed with cardio. Spoke Dr Naseem Ye ( [facility]). [facility] notified of pt's status. [facility] pt will require insurance to be sent to [facility] however. - Lexiscan performed 11/30/18. Moderate Zone of - inferior, inferolateral, inferoapical reversible defect compatible with mild intensity ischemia. Severely reduced LVEF of 22% post lexiscan and 23% at rest. -Lasix 40 Daily. #Elevated trops -Mild elevated trop could be demand vs initial cardiac event, 0.17 > 0.66 > 0.63. EKG showed ST depression in lateral leads and J point elevation in anteroseptal leads and tachycardia. ST depression resolved with improvement in rate, but TWI is evident in lateral and inferior leads. -Cont ASA, statin, BB, ACEi #A. fib -Coreg 25 BID -Dr Osborn on board #Hx of Tobacco abuse -Nicotine patch -Smoking cessation counseling #FEN -no fluids indicated -monitor electrolytes -Cholesterol/Fat-controlled diet #Prophylaxis -Coumadin Stopped in light on recent INR. #dispo -monitor on tele Will transfer to cath facility pending social work Visit type - Emergency Visit Emergency Visit: Yes ED Registration Date: 11/24/18 Care time: The patient presented to the Emergency Department on the above date and was hospitalized for further evaluation of their emergent condition. - New Patient This patient is new to me today: No - Critical Care Critical Care patient: No - Discharge Referral [facility]erred to [facility] Med P.C.: No
--- NOTE | 2018-12-01 18:08 | PN ---
Teaching Attending Note Name of Resident: Marv Sams ATTENDING PHYSICIAN STATEMENT I saw and evaluated the patient. I reviewed the resident's note and discussed the case with the resident. I agree with the resident's findings and plan as documented. SUBJECTIVE: NO SOB. No fever or chills. no palpitations OBJECTIVE: NAD CV: RRR, no MRG. Lungs: CTAB Ext: no edema on LE A/P : 58 y/o lady with h/o tachycardia, who presented who presented with SOB . She was found to have acute CHF exacerbation 1- New onset Acute systolic CHF exacerbation: improved. - cont current dose of lasix 40 po daily and ACEI. - cont coreg and increase to 25 mg BID - cont spironolactone - can' t r/o an apical thrombus. On AC with coumadin 2- New onset PAfib: cont with coreg . Hold coumaidn tonight due to INR 4.4 tele reviewed. One brief run of SVT 3- NSTEMI - cont ASA, statin, coreg, and ACEI - need L and R heart cath due to ischemia on stress test 4-Nicotine dependence: nicotine patch Dispo : still HLOC d/w Dr. small. plan to transfer to [facility] if accepted. team to contact [facility] transfer and touch base with card team knowing that she has Medicaid status pending. d/w daughter
[2018-12-01] MEDS: CARVEDILOL 25 MG TABLET (FP) PO SCH (21:32)
[2018-12-01] MEDS: ATORVASTATIN CA 80 MG TABLET (FP) PO SCH (21:32)
[2018-12-02 06:46] LABS: HEMATOCRIT 40.8 % (32.4-45.2); HEMOGLOBIN 13.6 GM/dL (10.7-15.3); MCH 30.2 pg (25.7-33.7); MCHC 33.4 g/dl (32.0-36.0); MEAN CELL VOLUME 90.5 fl (80-96); MEAN PLT VOLUME 10.8 fl (7.5-11.1); PLATELET COUNT 212 K/MM3 (134-434); RBC 4.51 M/mm3 (3.60-5.2); RDW 15.2 % (11.6-15.6); WHITE BLOOD COUNT 4.5 K/mm3 (4.0-10.0)
[2018-12-02 07:34] LABS: ANION GAP 6 MMOL/L (8-16); BLOOD UREA NITROGEN 20 mg/dL (7-18); CALCIUM 9.5 mg/dL (8.5-10.1); CHLORIDE 104 mmol/L (98-107); CO2 29 mmol/L (21-32); CREATININE 0.9 mg/dL (0.55-1.3); GLUCOSE,RANDOM 92 mg/dL (74-106); MAGNESIUM 1.8 mg/dL (1.8-2.4); POTASSIUM 4.9 mmol/L (3.5-5.1); SODIUM 139 mmol/L (136-145)
[2018-12-02] MEDS ORDERED: PT OWN MED DRAWER 7, Y5N ONE (08:54)
[2018-12-02] MEDS: ASPIRIN COATED 81 MG TABLET.EC PO SCH (09:04)
[2018-12-02] MEDS: QUINAPRIL HCL 5 MG TABLET (FP) PO SCH (09:05)
[2018-12-02] MEDS: NICOTINE 21 MG/24 HOURS TOPICAL PATCH TD SCH (09:05)
[2018-12-02] MEDS: FUROSEMIDE 40 MG TABLET (FP) PO SCH (09:05)
[2018-12-02] MEDS: SPIRONOLACTONE 25 MG TABLET (FP) PO SCH (09:05)
[2018-12-02] MEDS: CARVEDILOL 25 MG TABLET (FP) PO SCH ×2 (09:05→22:22)
--- NOTE | 2018-12-02 09:06 | PN ---
Teaching Attending Note Name of Resident: Marv Sams ATTENDING PHYSICIAN STATEMENT I saw and evaluated the patient. I reviewed the resident's note and discussed the case with the resident. I agree with the resident's findings and plan as documented. SUBJECTIVE: Patient is feeling better , daughter at bedside, c/o having cold symptoms. OBJECTIVE: Vital Signs Temperature 98 F 12/02/18 06:00 Pulse Rate 64 12/02/18 06:00 Respiratory Rate 18 12/02/18 06:00 Blood Pressure 106/64 12/02/18 06:00 O2 Sat by Pulse Oximetry (%) 98 12/01/18 21:00 Initial Vital Signs Temp Pulse Resp BP Pulse Ox 96.0 F L 154 H 32 H 154/105 H 88 L 11/24/18 21:20 11/24/18 21:20 11/24/18 21:20 11/24/18 21:20 11/24/18 21:20 GENERAL: AAOx3 NAD EYES:extraocular movements intact, sclera anicteric, conjunctiva clear. NECK: Supple Trachea midline LUNGS: DEC BS @ Bases. Good inspiratory effort HEART: RRR S1S2 ABDOMEN: NDNT No HSM EXTREMITIES: No pedel edema appreciated PSYCH: Normal mood, normal affect. SKIN: Warm, dry, normal turgor, no rashes or lesions noted CBCD WBC 4.5 K/mm3 (4.0-10.0) 12/02/18 05:30 RBC 4.51 M/mm3 (3.60-5.2) 12/02/18 05:30 Hgb 13.6 GM/dL (10.7-15.3) 12/02/18 05:30 Hct 40.8 % (32.4-45.2) 12/02/18 05:30 MCV 90.5 fl (80-96) 12/02/18 05:30 MCHC 33.4 g/dl (32.0-36.0) 12/02/18 05:30 RDW 15.2 % (11.6-15.6) 12/02/18 05:30 Plt Count 212 K/MM3 (134-434) 12/02/18 05:30 MPV 10.8 fl (7.5-11.1) 12/02/18 05:30 CMP Sodium 139 mmol/L (136-145) 12/02/18 05:30 Potassium 4.9 mmol/L (3.5-5.1) 12/02/18 05:30 Chloride 104 mmol/L (98-107) 12/02/18 05:30 Carbon Dioxide 29 mmol/L (21-32) 12/02/18 05:30 Anion Gap 6 MMOL/L (8-16) L 12/02/18 05:30 BUN 20 mg/dL (7-18) H 12/02/18 05:30 Creatinine 0.9 mg/dL (0.55-1.3) 12/02/18 05:30 Creat Clearance w eGFR > 60 (>60) 12/02/18 05:30 Random Glucose 92 mg/dL (74-106) 12/02/18 05:30 Calcium 9.5 mg/dL (8.5-10.1) 12/02/18 05:30 Total Bilirubin 0.5 mg/dL (0.2-1) 11/26/18 06:00 AST 32 U/L (15-37) 11/26/18 06:00 ALT 59 U/L (13-61) 11/26/18 06:00 Alkaline Phosphatase 116 U/L (45-117) 11/26/18 06:00 Total Protein 6.9 g/dl (6.4-8.2) 11/26/18 06:00 Albumin 3.7 g/dl (3.4-5.0) 11/26/18 06:00 CARDIAC ENZYMES Creatine Kinase 67 U/L (26-192) 11/26/18 06:00 Troponin I 0.63 ng/ml (0.00-0.05) H* 11/25/18 09:00 Current Medications Generic Name Dose Route Start Last Admin Trade Name Freq PRN Reason Stop Dose Admin Acetaminophen 650 mg 11/27/18 20:59 11/28/18 06:23 Tylenol - PO 650 mg Q6H PRN Administration PAIN OR FEVER Aspirin 81 mg 11/25/18 10:00 12/01/18 09:17 Ecotrin - PO 81 mg DAILY [facility] Administration Atorvastatin Calcium 80 mg 11/25/18 22:00 12/01/18 21:32 Lipitor - PO 80 mg HS [facility] Administration Carvedilol 25 mg 12/01/18 22:00 12/01/18 21:32 Coreg - PO 25 mg BID [facility] Administration Furosemide 40 mg 12/01/18 10:00 12/01/18 09:17 Lasix - PO 40 mg DAILY [facility] Administration Nicotine 21 mg 11/27/18 10:00 12/01/18 09:18 Nicoderm Patch - TD 21 mg DAILY [facility] Administration Quinapril HCl 5 mg 11/25/18 13:00 12/01/18 09:18 Accupril - PO 5 mg DAILY [facility] Administration Spironolactone 25 mg 11/29/18 10:00 12/01/18 09:17 Aldactone - PO 25 mg DAILY [facility] Administration Home Medications Medication Instructions Recorded Omeprazole 40 mg PO BID 11/25/18 FLu swab: negative. ASSESSMENT AND PLAN: Patient is a 58yo female with Pmhx of tachycardia, who presented who presented with SOB and was found to have acute CHF exacerbation # NSTEMI: continue cont ASA, statin, coreg, and ACEI , waiting for tx to [facility] for L and R heart cath due to ischemia on stress test # Acute systolic CHF exacerbation: improved. on Lasix continue , continue Coreg , ACEI, spironolactone , can' t r/o an apical thrombus. On AC with coumadin # New onset PAfib: cont with coreg . Hold coumadin since inr is 4.4 # Nicotine dependence: nicotine patch d/w Dr. small for tx to [facility] for cath.
--- NOTE | 2018-12-02 09:59 | PN ---
Physical Exam: SUBJECTIVE: Patient seen and examined at bedside. No acute events overnight. For Transfer to [facility] or tomorrow 12/03/18. OBJECTIVE: Vital Signs Period Temp Pulse Resp BP Sys/Jeffries Pulse Ox Last 24 Hr 97.3 F-98 F 64-74 18-20 99-149/55-73 98 GENERAL: AAOx3 NAD EYES:extraocular movements intact, sclera anicteric, conjunctiva clear. NECK: Supple Trachea midline LUNGS: DEC BS @ Bases. Good inspiratory effort HEART: RRR S1S2 ABDOMEN: NDNT No HSM EXTREMITIES: No pedel edema appreciated PSYCH: Normal mood, normal affect. SKIN: Warm, dry, normal turgor, no rashes or lesions noted Laboratory Results - last 24 hr 12/01/18 12/01/18 12/01/18 06:10 06:10 11:10 WBC RBC Hgb Hct MCV MCH MCHC RDW Plt Count MPV PT with INR 53.50 H INR 4.47 H* Sodium Potassium Chloride Carbon Dioxide Anion Gap BUN 20 H Creatinine Creat Clearance w eGFR POC Glucometer 117 Random Glucose Calcium Phosphorus Magnesium 12/01/18 12/01/18 12/02/18 16:40 21:30 05:30 WBC 4.5 RBC 4.51 Hgb 13.6 Hct 40.8 MCV 90.5 MCH 30.2 MCHC 33.4 RDW 15.2 Plt Count 212 MPV 10.8 PT with INR INR Sodium Potassium Chloride Carbon Dioxide Anion Gap BUN Creatinine Creat Clearance w eGFR POC Glucometer 101 96 Random Glucose Calcium Phosphorus Magnesium 12/02/18 05:30 WBC RBC Hgb Hct MCV MCH MCHC RDW Plt Count MPV PT with INR INR Sodium 139 Potassium 4.9 Chloride 104 Carbon Dioxide 29 Anion Gap 6 L BUN 20 H Creatinine 0.9 Creat Clearance w eGFR > 60 POC Glucometer Random Glucose 92 Calcium 9.5 Phosphorus 4.0 Magnesium 1.8 Active Medications Generic Name Dose Route Start Last Admin Trade Name Freq PRN Reason Stop Dose Admin Acetaminophen 650 mg 11/27/18 20:59 11/28/18 06:23 Tylenol - PO 650 mg Q6H PRN Administration PAIN OR FEVER Aspirin 81 mg 11/25/18 10:00 12/02/18 09:04 Ecotrin - PO 81 mg DAILY [facility] Administration Atorvastatin Calcium 80 mg 11/25/18 22:00 12/01/18 21:32 Lipitor - PO 80 mg HS [facility] Administration Carvedilol 25 mg 12/01/18 22:00 12/02/18 09:05 Coreg - PO 25 mg BID [facility] Administration Furosemide 40 mg 12/01/18 10:00 12/02/18 09:05 Lasix - PO 40 mg DAILY [facility] Administration Nicotine 21 mg 11/27/18 10:00 12/02/18 09:05 Nicoderm Patch - TD 21 mg DAILY [facility] Administration Quinapril HCl 5 mg 11/25/18 13:00 12/02/18 09:05 Accupril - PO 5 mg DAILY [facility] Administration Spironolactone 25 mg 11/29/18 10:00 12/02/18 09:05 Aldactone - PO 25 mg DAILY [facility] Administration ASSESSMENT/PLAN: 58F w/ pmhx tachycardia who comes into the the ED c/o acute onset SOB and palpitations. #Acute systolic CHF exacerbation - ECHO remarkable for EF 20-25% with severe global hypokinesis of LV. -Cont ASA, Heparin drip (cannot exclude apical thrombus on ECHO), Lasix 40 PO QD , Quinipril 5 PO QD, Carvedilol 25 BID, Atorvastatin 80 HS -Repeat ECHO still could not exclude thrombus. - INR 2.92. Repeat INR at 10 pm tonight 12/02/18. Once under 2, will start I.V Heparin. Carvedilol 25 BID, Spironolactone 25 mg PO QD. Pt will need cath in the future due to clinical condition as discussed with cardio. Spoke Dr Naseem Ye ( [facility]). [facility] notified of pt's status. States pt will require insurance to be sent to [facility] however. - Lexiscan performed 11/30/18. Moderate Zone of - inferior, inferolateral, inferoapical reversible defect compatible with mild intensity ischemia. Severely reduced LVEF of 22% post lexiscan and 23% at rest. -Lasix 40 Daily. #Elevated trops -Mild elevated trop could be demand vs initial cardiac event, 0.17 > 0.66 > 0.63. EKG showed ST depression in lateral leads and J point elevation in anteroseptal leads and tachycardia. ST depression resolved with improvement in rate, but TWI is evident in lateral and inferior leads. -Cont ASA, statin, BB, ACEi #A. fib -Coreg 25 BID -Dr Osborn on board #Hx of Tobacco abuse -Nicotine patch -Smoking cessation counseling #FEN -no fluids indicated -monitor electrolytes -Cholesterol/Fat-controlled diet #Prophylaxis -Coumadin Stopped in light on recent INR. INR currently 2.92. Repeat at 10 pm tonight 12/02/18. #Dispo -monitor on tele TRANSFER TO [facility] OR TOMORROW FOR CARDIAC CATH Visit type - Emergency Visit Emergency Visit: Yes ED Registration Date: 11/24/18 Care time: The patient presented to the Emergency Department on the above date and was hospitalized for further evaluation of their emergent condition. - New Patient This patient is new to me today: No - Critical Care Critical Care patient: No - Discharge Referral Referred to [facility] Med P.C.: No
--- NOTE | 2018-12-02 11:44 | PN ---
Progress Note, Physician History of Present Illness: 58 year old female with history of "tachycardia" presenting with sudden onset shortness of breath and respiratory difficulty of sudden onset 30 minutes before presentation. Patient is from [facility] for the past month and had no issues all day until these symptoms started. According to friend at bedside she began breathing rapidly and having palpitations. Denies any pain anywhere but kept clutching her epigastric region on exam. She has family members with heart problems but is not sure which ones. The only medication she is on is sedoxil (Mexazolam) for her "tachcyardia". Denies any recent fevers, chills nausea vomiting diarrhea or other symptoms. 11/24/18 21:50 - Current Medication List Current Medications: Active Medications Acetaminophen (Tylenol -) 650 mg PO Q6H PRN PRN Reason: PAIN OR FEVER Last Admin: 11/28/18 06:23 Dose: 650 mg Aspirin (Ecotrin -) 81 mg PO DAILY [facility] Last Admin: 12/02/18 09:04 Dose: 81 mg Atorvastatin Calcium (Lipitor -) 80 mg PO HS [facility] Last Admin: 12/01/18 21:32 Dose: 80 mg Carvedilol (Coreg -) 25 mg PO BID [facility] Last Admin: 12/02/18 09:05 Dose: 25 mg Furosemide (Lasix -) 40 mg PO DAILY [facility] Last Admin: 12/02/18 09:05 Dose: 40 mg Nicotine (Nicoderm Patch -) 21 mg TD DAILY [facility] Last Admin: 12/02/18 09:05 Dose: 21 mg Quinapril HCl (Accupril -) 5 mg PO DAILY [facility] Last Admin: 12/02/18 09:05 Dose: 5 mg Spironolactone (Aldactone -) 25 mg PO DAILY [facility] Last Admin: 12/02/18 09:05 Dose: 25 mg - Objective Vital Signs: Vital Signs Temperature 97.8 F 12/02/18 10:00 Pulse Rate 78 12/02/18 10:00 Respiratory Rate 18 12/02/18 10:00 Blood Pressure 121/74 12/02/18 10:00 O2 Sat by Pulse Oximetry (%) 98 12/01/18 21:00 Eyes: Yes: WNL, Conjunctiva Clear, EOM Intact HENT: Yes: WNL, Atraumatic, Normocephalic Neck: Yes: WNL, Supple, Trachea Midline Cardiovascular: Yes: WNL, Regular Rate and Rhythm Respiratory: Yes: WNL, Regular, CTA Bilaterally Gastrointestinal: Yes: WNL, Normal Bowel Sounds Genitourinary: Yes: WNL Musculoskeletal: Yes: WNL Extremities: Yes: WNL Edema: No Integumentary: Yes: WNL Neurological: Yes: WNL, Alert, Oriented ...Motor Strength: WNL Psychiatric: Yes: WNL Labs: CBC, BMP 12/02/18 05:30 12/02/18 05:30 INR, PTT INR 4.47 (0.83-1.09) H* 12/01/18 06:10 Problem List - Problems (1) Acute CHF Code(s): I50.9 - HEART FAILURE, UNSPECIFIED Qualifiers: Heart failure type: unspecified Qualified Code(s): I50.9 - Heart failure, unspecified (2) Acute respiratory failure with hypoxia Code(s): J96.01 - ACUTE RESPIRATORY FAILURE WITH HYPOXIA Assessment/Plan - Problems (1) Acute systolic CHF (congestive heart failure) Assessment/Plan: ECHO: severely reduced LVEF; dilated LV; cannot exclude LV thrombus. Elevated TNI, EKG changes of NSTEMI. BNP 4451 CT chest: congestive changes Stress MIBI: areas of inferior and anterior myocardial ischemia. Plan: Continue lisinopril. Started carvedilol; increase dose, as tolerated, to 25 mg bid. On spironolactone 25 mg daily. On furosemide 40 mg PO daily. On warfarin for LV thrombus, PAF; hold today (INR>4). TSH WNL. Elevated LDL cholesterol--> now on high-dose atorvastatin (NSTEMI; hyperlipidemia). F/u BUN/Cr, electrolytes, daily weight, Is and Os. Pt requires right and left-heart catheterization. Stop warfarin and restart IV heparin once pt is accepted for coronary catheterization. 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 Now that the children are independent, she may be feeling "alone and useless" per daughter. She also was under a great deal of emotional stress and depression for the past several months. Code(s): F41.9 - ANXIETY DISORDER, UNSPECIFIED; F32.9 - MAJOR DEPRESSIVE DISORDER, SINGLE EPISODE, UNSPECIFIED (3) Cigarette nicotine dependence Assessment/Plan: Now on nicotine patch. Code(s): F17.210 - NICOTINE DEPENDENCE, CIGARETTES, UNCOMPLICATED (4) Hyperlipidemia Assessment/Plan: elevated LDL. On atorvastatin. Code(s): E78.5 - HYPERLIPIDEMIA, UNSPECIFIED (5) Elevated troponin I level Assessment/Plan: NSTEMI: TNI 0.17-->0.66-->0.63. EKG: sinus tachycardia; ?LAE; deepening STT changes. ECHO: severely reduced LVEF globally (though regional wall motion abnormalities cannot be excluded); moderate LAE; possible LV apical thrombus; aneurysmal atrial septum. Stress Lexiscan MIBI: inferior and anterior ischemia. Continue ASA, d/c warfarin (change to IV heparin) c. cath when INR below 1.6, restart IV heparin when INR less than 2 cont atorvastatin, carvedilol, lisinopril, spironolactone. For coronary angiogram. Code(s): R74.8 - ABNORMAL LEVELS OF OTHER SERUM ENZYMES (6) LV (left ventricular) mural thrombus Code(s): I51.3 - INTRACARDIAC THROMBOSIS, NOT ELSEWHERE CLASSIFIED
[2018-12-02 12:19] VITALS: BMI 26.7
[2018-12-02 12:32] LABS: INR 3.71 (0.83-1.09); PROTHROMBIN TIME (PATIENT) 44.4 SEC (9.7-13.0)
[2018-12-02] MEDS ORDERED: PHYTONADIONE 10 MG/1 ML AMP IVPB ONE ×2 (13:00→18:45)
[2018-12-02 17:56] LABS: INR 2.92 (0.83-1.09); PROTHROMBIN TIME (PATIENT) 34.8 SEC (9.7-13.0)
[2018-12-02 21:43] LABS: INR 1.72 (0.83-1.09); PROTHROMBIN TIME (PATIENT) 20.4 SEC (9.7-13.0)
[2018-12-02] MEDS: ATORVASTATIN CA 80 MG TABLET (FP) PO SCH (22:21)
[2018-12-02] MEDS ORDERED: HEPARIN NA (PORCINE) 5,000 UNITS/ML 1ML VIAL IVPUSH PRN ×2 (22:52)
[2018-12-03] MEDS: HEPARIN INFUSION - 25,000 UNITS/500 ML INFUS.BAG IVPB SCH (02:19)
[2018-12-03 06:48] LABS: HEMATOCRIT 40.4 % (32.4-45.2); HEMOGLOBIN 13.6 GM/dL (10.7-15.3); MCH 30.4 pg (25.7-33.7); MCHC 33.5 g/dl (32.0-36.0); MEAN CELL VOLUME 90.7 fl (80-96); MEAN PLT VOLUME 10.8 fl (7.5-11.1); PLATELET COUNT 208 K/MM3 (134-434); RBC 4.45 M/mm3 (3.60-5.2)
[2018-12-03 06:52] LABS: INR 1.4 (0.83-1.09); PROTHROMBIN TIME (PATIENT) 16.6 SEC (9.7-13.0)
[2018-12-03 07:40] LABS: ANION GAP 5 MMOL/L (8-16); BLOOD UREA NITROGEN 23 mg/dL (7-18); CALCIUM 8.9 mg/dL (8.5-10.1); CHLORIDE 104 mmol/L (98-107); CO2 28 mmol/L (21-32); GLUCOSE,RANDOM 88 mg/dL (74-106); MAGNESIUM 2.1 mg/dL (1.8-2.4); PHOSPHOROUS 4.1 mg/dL (2.5-4.9); POTASSIUM 4.6 mmol/L (3.5-5.1); SODIUM 137 mmol/L (136-145)
[2018-12-03] MEDS: QUINAPRIL HCL 5 MG TABLET (FP) PO SCH (09:56)
[2018-12-03] MEDS: SPIRONOLACTONE 25 MG TABLET (FP) PO SCH (09:57)
[2018-12-03] MEDS: CARVEDILOL 25 MG TABLET (FP) PO SCH ×2 (09:57→22:22)
[2018-12-03] MEDS: FUROSEMIDE 40 MG TABLET (FP) PO SCH (09:58)
[2018-12-03] MEDS: ASPIRIN COATED 81 MG TABLET.EC PO SCH (09:58)
[2018-12-03] MEDS: NICOTINE 21 MG/24 HOURS TOPICAL PATCH TD SCH (09:58)
[2018-12-03] MEDS ORDERED: SODIUM CHLORIDE NASAL SPRAY 44 ML BOTTLE NS PRN (12:27)
--- NOTE | 2018-12-03 13:33 | PN ---
Progress Note, Physician Chief Complaint: Pt is A&Ox3; no chest pain or dyspnea; c/o sore throat. Two daughters are at bedside.Good appetite. History of Present Illness: 58 year old female (b. [facility]) with history of "tachycardia", long- term cigarettes (1/2 ppd for past 40 + years), anxeity/depression (per pt and daughter), presenting with sudden onset shortness of breath and respiratory difficulty of sudden onset 30 minutes before presentation. Patient is from [facility] visiting for the past month and had no issues all day until these symptoms started. According to friend at bedside she began breathing rapidly and having palpitations. Denies any pain anywhere but kept clutching her epigastric region on exam. She has family members with heart problems but is not sure which ones. The only medication she is on is sedoxil (Mexazolam) for her "tachycardia". Denies any recent fevers, chills nausea vomiting diarrhea or other symptoms. Hx working for 30 years in [employer], then came to [place] several months ago to help care for grandchildren. Pt says that symptoms of weakness and dyspnea began 09/2018 while in [facility]. She had many tests there, and was told her heart was fine, but she had a "virus" in her stomach (periods of palpitations are occasionally felt in the abdomen, then travel into the chest). - Current Medication List Current Medications: Active Medications Acetaminophen (Tylenol -) 650 mg PO Q6H PRN PRN Reason: PAIN OR FEVER Last Admin: 11/28/18 06:23 Dose: 650 mg Aspirin (Ecotrin -) 81 mg PO DAILY [facility] Last Admin: 12/03/18 09:58 Dose: 81 mg Atorvastatin Calcium (Lipitor -) 80 mg PO HS [facility] Last Admin: 12/02/18 22:21 Dose: 80 mg Carvedilol (Coreg -) 25 mg PO BID [facility] Last Admin: 12/03/18 09:57 Dose: 25 mg Furosemide (Lasix -) 40 mg PO DAILY [facility] Last Admin: 12/03/18 09:58 Dose: 40 mg Heparin Sodium (Porcine) (Heparin -) 1,000 unit IVPUSH PRN PRN PRN Reason: Heparin Heparin Sodium (Porcine) (Heparin -) 5,000 unit IVPUSH PRN PRN PRN Reason: Heparin Last Admin: 12/03/18 02:20 Dose: 5,000 unit Heparin Sodium/Dextrose (Heparin Infusion -) 25,000 units in 500 mls @ 20 mls/ hr IVPB TITR [facility]; Protocol Last Admin: 12/03/18 02:19 Dose: 1,150 unit/hr, 23 mls/hr Nicotine (Nicoderm Patch -) 21 mg TD DAILY [facility] Last Admin: 12/03/18 09:58 Dose: 21 mg Quinapril HCl (Accupril -) 5 mg PO DAILY [facility] Last Admin: 12/03/18 09:56 Dose: 5 mg Sodium Chloride ([place] Nasal [place] -) 2 spray NS BID PRN PRN Reason: NASAL CONGESTION Spironolactone (Aldactone -) 25 mg PO DAILY [facility] Last Admin: 12/03/18 09:57 Dose: 25 mg - Objective Vital Signs: Vital Signs Temperature 98.7 F 12/03/18 11:22 Pulse Rate 77 12/03/18 11:22 Respiratory Rate 19 12/03/18 11:22 Blood Pressure 120/71 12/03/18 11:22 O2 Sat by Pulse Oximetry (%) 99 12/03/18 11:24 Constitutional: Yes: No Distress Eyes: Yes: WNL HENT: Yes: WNL Neck: Yes: WNL Cardiovascular: Yes: Regular Rate and Rhythm, S1, S2 Respiratory: Yes: WNL Gastrointestinal: Yes: WNL ...Rectal Exam: Yes: Deferred Genitourinary: No: Anuria Edema: No Labs: CBC, BMP 12/03/18 05:30 12/03/18 05:30 INR, PTT INR 1.40 (0.83-1.09) H 12/03/18 05:30 Abnormal Lab Results 12/02/18 12/02/18 12/02/18 16:45 21:00 23:30 PT with INR 34.80 H 20.40 H INR 2.92 H 1.72 H PTT (Actin FS) > 400.0 H Anion Gap BUN 12/03/18 12/03/18 12/03/18 01:20 05:30 05:30 PT with INR 16.60 H INR 1.40 H PTT (Actin FS) 38.4 H Anion Gap 5 L BUN 23 H 12/03/18 10:21 PT with INR INR PTT (Actin FS) 158.3 H Anion Gap BUN Problem List - Problems (1) Acute systolic CHF (congestive heart failure) Assessment/Plan: ECHO: severely reduced LVEF; dilated LV; cannot exclude LV thrombus. Elevated TNI, EKG changes of NSTEMI. BNP 4451 CT chest: congestive changes Stress MIBI: areas of inferior and anterior myocardial ischemia. Plan: Continue lisinopril. Started carvedilol; now on optimal dose (25 mg bid). On spironolactone 25 mg daily. On furosemide 40 mg PO daily. Off warfarin; now on IV heparin. TSH WNL. Elevated LDL cholesterol--> now on high-dose atorvastatin (NSTEMI; hyperlipidemia). F/u BUN/Cr, electrolytes, daily weight, Is and Os. Pt requires right and left-heart catheterization. Awaits transfer to [facility]. Code(s): I50.21 - ACUTE SYSTOLIC (CONGESTIVE) HEART FAILURE (2) Anxiety and depression Code(s): F41.9 - ANXIETY DISORDER, UNSPECIFIED; F32.9 - MAJOR DEPRESSIVE DISORDER, SINGLE EPISODE, UNSPECIFIED (3) Cigarette nicotine dependence Code(s): F17.210 - NICOTINE DEPENDENCE, CIGARETTES, UNCOMPLICATED (4) Hyperlipidemia Code(s): E78.5 - HYPERLIPIDEMIA, UNSPECIFIED (5) Elevated troponin I level Code(s): R74.8 - ABNORMAL LEVELS OF OTHER SERUM ENZYMES (6) LV (left ventricular) mural thrombus Code(s): I51.3 - INTRACARDIAC THROMBOSIS, NOT ELSEWHERE CLASSIFIED
--- NOTE | 2018-12-03 19:26 | PN ---
Physical Exam: SUBJECTIVE: Patient seen and examined at bedside. No acute events overnight. Resting in bed. Daughter at beside. Pending transfer to [place] either tonight or tomorrow 12/04/18. OBJECTIVE: Vital Signs Period Temp Pulse Resp BP Sys/Jeffries Pulse Ox Last 24 Hr 97.7 F-98.7 F 72-77 18-20 103-121/50-71 99-99 GENERAL: AAOx3 Resting in bed. EYES: EOMI Sclera Clear NECK: Supple Trachea midline LUNGS: DEC BS @ Bases. Now Good inspiratory effort. HEART: RRR S1S2 ABDOMEN: NDNT No HSM EXTREMITIES: No pedel edema appreciated PSYCH: Normal mood, normal affect. SKIN: Warm, dry, normal turgor, no rashes or lesions noted Laboratory Results - last 24 hr 12/02/18 12/02/18 12/03/18 21:00 23:30 01:20 WBC RBC Hgb Hct MCV MCH MCHC RDW Plt Count MPV PT with INR 20.40 H INR 1.72 H PTT (Actin FS) > 400.0 H 38.4 H Sodium Potassium Chloride Carbon Dioxide Anion Gap BUN Creatinine Creat Clearance w eGFR Random Glucose Calcium Phosphorus Magnesium 12/03/18 12/03/18 12/03/18 05:30 05:30 05:30 WBC 6.0 RBC 4.45 Hgb 13.6 Hct 40.4 MCV 90.7 MCH 30.4 MCHC 33.5 RDW 15.0 Plt Count 208 MPV 10.8 PT with INR 16.60 H INR 1.40 H PTT (Actin FS) Sodium 137 Potassium 4.6 Chloride 104 Carbon Dioxide 28 Anion Gap 5 L BUN 23 H Creatinine 1.0 Creat Clearance w eGFR 56.75 Random Glucose 88 Calcium 8.9 Phosphorus 4.1 Magnesium 2.1 12/03/18 12/03/18 12/03/18 05:30 10:21 17:00 WBC RBC Hgb Hct MCV MCH MCHC RDW Plt Count MPV PT with INR INR PTT (Actin FS) Cancelled 158.3 H 75.1 H Sodium Potassium Chloride Carbon Dioxide Anion Gap BUN Creatinine Creat Clearance w eGFR Random Glucose Calcium Phosphorus Magnesium Active Medications Generic Name Dose Route Start Last Admin Trade Name Freq PRN Reason Stop Dose Admin Acetaminophen 650 mg 11/27/18 20:59 11/28/18 06:23 Tylenol - PO 650 mg Q6H PRN Administration PAIN OR FEVER Aspirin 81 mg 11/25/18 10:00 12/03/18 09:58 Ecotrin - PO 81 mg DAILY [facility] Administration Atorvastatin Calcium 80 mg 11/25/18 22:00 12/02/18 22:21 Lipitor - PO 80 mg HS [facility] Administration Carvedilol 25 mg 12/01/18 22:00 12/03/18 09:57 Coreg - PO 25 mg BID [facility] Administration Furosemide 40 mg 12/01/18 10:00 12/03/18 09:58 Lasix - PO 40 mg DAILY [facility] Administration Heparin Sodium (Porcine) 1,000 unit 12/02/18 22:52 Heparin - IVPUSH PRN PRN Heparin Heparin Sodium (Porcine) 5,000 unit 12/02/18 22:52 12/03/18 02:20 Heparin - IVPUSH 5,000 unit PRN PRN Administration Heparin Heparin Sodium/Dextrose 25,000 units in 500 mls @ 20 mls/hr 12/02/18 23:00 02:19 Heparin Infusion - IVPB 1,150 unit/hr TITR [facility] 23 mls/hr Administration Protocol 1,000 UNIT/HR Nicotine 21 mg 11/27/18 10:00 12/03/18 09:58 Nicoderm Patch - TD 21 mg DAILY [facility] Administration Quinapril HCl 5 mg 11/25/18 13:00 12/03/18 09:56 Accupril - PO 5 mg DAILY [facility] Administration Sodium Chloride 2 spray 12/03/18 12:27 [place] Nasal [place] - NS BID PRN NASAL CONGESTION Spironolactone 25 mg 11/29/18 10:00 12/03/18 09:57 Aldactone - PO 25 mg DAILY [facility] Administration ASSESSMENT/PLAN: 58F w/ pmhx tachycardia who comes into the the ED c/o acute onset SOB and palpitations. #Acute systolic CHF exacerbation - ECHO remarkable for EF 20-25% with severe global hypokinesis of LV. -Cont ASA, Heparin drip (cannot exclude apical thrombus on ECHO), Lasix 40 PO QD , Quinipril 5 PO QD, Carvedilol 25 BID, Atorvastatin 80 HS -Repeat ECHO still could not exclude thrombus. -I.V Heparin infusing. Carvedilol 25 BID, Spironolactone 25 mg PO QD. Pt will need cath in the future due to clinical condition as discussed with cardio. Spoke Dr Naseem Ye ( [facility]). States [facility] notified of pt's status. States pt will require insurance to be sent to [facility] however. - Lexiscan performed 11/30/18. Moderate Zone of - inferior, inferolateral, inferoapical reversible defect compatible with mild intensity ischemia. Severely reduced LVEF of 22% post lexiscan and 23% at rest. -Lasix 40 PO Daily. #Elevated trops -Mild elevated trop could be demand vs initial cardiac event, 0.17 > 0.66 > 0.63. EKG showed ST depression in lateral leads and J point elevation in anteroseptal leads and tachycardia. ST depression resolved with improvement in rate, but TWI is evident in lateral and inferior leads. -Cont ASA, statin, BB, ACEi #A. fib -Coreg 25 BID -Dr Osborn on board #Hx of Tobacco abuse -Nicotine patch -Smoking cessation counseling #FEN -No Fluids -monitor electrolytes -Cholesterol/Fat-controlled diet #Prophylaxis -I.V Heparin #Dispo -monitor on tele TRANSFER TO [facility] OR TOMORROW FOR CARDIAC CATH Visit type - Emergency Visit Emergency Visit: Yes ED Registration Date: 11/24/18 Care time: The patient presented to the Emergency Department on the above date and was hospitalized for further evaluation of their emergent condition. - New Patient This patient is new to me today: No - Critical Care Critical Care patient: No - Discharge Referral Referred to [facility] No
--- NOTE | 2018-12-03 20:25 | PN ---
Teaching Attending Note Name of Resident: Marv Sams ATTENDING PHYSICIAN STATEMENT I saw and evaluated the patient. I reviewed the resident's note and discussed the case with the resident. I agree with the resident's findings and plan as documented. SUBJECTIVE: Patient is feeling better waiting for a bed at [facility]. OBJECTIVE: Vital Signs Temperature 98.7 F 12/03/18 15:00 Pulse Rate 77 12/03/18 15:00 Respiratory Rate 18 12/03/18 15:00 Blood Pressure 121/50 L 12/03/18 15:00 O2 Sat by Pulse Oximetry (%) 99 12/03/18 11:24 GENERAL: AAOx3 NAD EYES:extraocular movements intact, sclera anicteric, conjunctiva clear. NECK: Supple Trachea midline LUNGS: DEC BS @ Bases. Good inspiratory effort HEART: RRR S1S2 ABDOMEN: NDNT No HSM EXTREMITIES: No pedel edema appreciated PSYCH: Normal mood, normal affect. SKIN: Warm, dry, normal turgor, no rashes or lesions noted CBCD WBC 6.0 K/mm3 (4.0-10.0) 12/03/18 05:30 RBC 4.45 M/mm3 (3.60-5.2) 12/03/18 05:30 Hgb 13.6 GM/dL (10.7-15.3) 12/03/18 05:30 Hct 40.4 % (32.4-45.2) 12/03/18 05:30 MCV 90.7 fl (80-96) 12/03/18 05:30 MCHC 33.5 g/dl (32.0-36.0) 12/03/18 05:30 RDW 15.0 % (11.6-15.6) 12/03/18 05:30 Plt Count 208 K/MM3 (134-434) 12/03/18 05:30 MPV 10.8 fl (7.5-11.1) 12/03/18 05:30 CMP Sodium 137 mmol/L (136-145) 12/03/18 05:30 Potassium 4.6 mmol/L (3.5-5.1) 12/03/18 05:30 Chloride 104 mmol/L (98-107) 12/03/18 05:30 Carbon Dioxide 28 mmol/L (21-32) 12/03/18 05:30 Anion Gap 5 MMOL/L (8-16) L 12/03/18 05:30 BUN 23 mg/dL (7-18) H 12/03/18 05:30 Creatinine 1.0 mg/dL (0.55-1.3) 12/03/18 05:30 Creat Clearance w eGFR 56.75 (>60) 12/03/18 05:30 Random Glucose 88 mg/dL (74-106) 12/03/18 05:30 Calcium 8.9 mg/dL (8.5-10.1) 12/03/18 05:30 Total Bilirubin 0.5 mg/dL (0.2-1) 11/26/18 06:00 AST 32 U/L (15-37) 11/26/18 06:00 ALT 59 U/L (13-61) 11/26/18 06:00 Alkaline Phosphatase 116 U/L (45-117) 11/26/18 06:00 Total Protein 6.9 g/dl (6.4-8.2) 11/26/18 06:00 Albumin 3.7 g/dl (3.4-5.0) 11/26/18 06:00 CARDIAC ENZYMES Creatine Kinase 67 U/L (26-192) 11/26/18 06:00 Troponin I 0.63 ng/ml (0.00-0.05) H* 11/25/18 09:00 Current Medications Generic Name Dose Route Start Last Admin Trade Name Freq PRN Reason Stop Dose Admin Acetaminophen 650 mg 11/27/18 20:59 11/28/18 06:23 Tylenol - PO 650 mg Q6H PRN Administration PAIN OR FEVER Aspirin 81 mg 11/25/18 10:00 12/03/18 09:58 Ecotrin - PO 81 mg DAILY [facility] Administration Atorvastatin Calcium 80 mg 11/25/18 22:00 12/02/18 22:21 Lipitor - PO 80 mg HS [facility] Administration Carvedilol 25 mg 12/01/18 22:00 12/03/18 09:57 Coreg - PO 25 mg BID [facility] Administration Furosemide 40 mg 12/01/18 10:00 12/03/18 09:58 Lasix - PO 40 mg DAILY [facility] Administration Heparin Sodium (Porcine) 1,000 unit 12/02/18 22:52 Heparin - IVPUSH PRN PRN Heparin Heparin Sodium (Porcine) 5,000 unit 12/02/18 22:52 12/03/18 02:20 Heparin - IVPUSH 5,000 unit PRN PRN Administration Heparin Heparin Sodium/Dextrose 25,000 units in 500 mls @ 20 mls/hr 12/02/18 23:00 02:19 Heparin Infusion - IVPB 1,150 unit/hr TITR [facility] 23 mls/hr Administration Protocol 1,000 UNIT/HR Nicotine 21 mg 11/27/18 10:00 12/03/18 09:58 Nicoderm Patch - TD 21 mg DAILY [facility] Administration Quinapril HCl 5 mg 11/25/18 13:00 12/03/18 09:56 Accupril - PO 5 mg DAILY [facility] Administration Sodium Chloride 2 spray 12/03/18 12:27 [place] Nasal [place] - NS BID PRN NASAL CONGESTION Spironolactone 25 mg 11/29/18 10:00 12/03/18 09:57 Aldactone - PO 25 mg DAILY [facility] Administration Home Medications Medication Instructions Recorded Omeprazole 40 mg PO BID 11/25/18 FLu swab: negative. ASSESSMENT AND PLAN: Patient is a 58yo female with Pmhx of tachycardia, who presented who presented with SOB and was found to have acute CHF exacerbation # NSTEMI: continue cont ASA, statin, coreg, and ACEI , waiting to tx the patient at [facility] for L and R heart cath due to ischemia on stress test , # Acute systolic CHF exacerbation: improved. on Lasix continue , continue Coreg , ACEI, spironolactone , can' t r/o an apical thrombus. On AC with coumadin # New onset PAfib: cont with coreg . Hold coumadin since inr is 4.4 # Nicotine dependence: nicotine patch d/w Dr. small for tx to [facility] for cath. Waiting for Tx
[2018-12-03] MEDS: ACETAMINOPHEN 325 MG TABLET (FP) PO PRN (22:22)
[2018-12-03] MEDS: ATORVASTATIN CA 80 MG TABLET (FP) PO SCH (22:22)
[2018-12-04 07:36] LABS: HEMATOCRIT 40.8 % (32.4-45.2); HEMOGLOBIN 13.6 GM/dL (10.7-15.3); MCHC 33.4 g/dl (32.0-36.0); MEAN CELL VOLUME 89.7 fl (80-96); MEAN PLT VOLUME 10.7 fl (7.5-11.1); PLATELET COUNT 203 K/MM3 (134-434); RBC 4.55 M/mm3 (3.60-5.2); RDW 14.7 % (11.6-15.6); WHITE BLOOD COUNT 5.4 K/mm3 (4.0-10.0)
[2018-12-04] MEDS: HEPARIN INFUSION - 25,000 UNITS/500 ML INFUS.BAG IVPB SCH (08:00)
[2018-12-04 09:32] LABS: INR 1.23 (0.83-1.09); PROTHROMBIN TIME (PATIENT) 14.6 SEC (9.7-13.0)
[2018-12-04 10:14] VITALS: BP 104/52; PULSE 68; TEMP 98
[2018-12-04] MEDS: ASPIRIN COATED 81 MG TABLET.EC PO SCH (10:15)
[2018-12-04] MEDS: FUROSEMIDE 40 MG TABLET (FP) PO SCH (10:15)
[2018-12-04] MEDS: CARVEDILOL 25 MG TABLET (FP) PO SCH (10:15)
[2018-12-04] MEDS: NICOTINE 21 MG/24 HOURS TOPICAL PATCH TD SCH (10:15)
[2018-12-04] MEDS: QUINAPRIL HCL 5 MG TABLET (FP) PO SCH (10:17)
[2018-12-04] MEDS ORDERED: PT OWN MED DRAWER 7, Y5N ONE (10:17)
[2018-12-04] MEDS: SPIRONOLACTONE 25 MG TABLET (FP) PO SCH (10:17)
--- NOTE | 2018-12-04 13:44 | DS ---
Physical Exam: SUBJECTIVE: Patient seen and examined at bedside. No acute events overnight. Pt denies chest pain or shortness of breath. OBJECTIVE: Vital Signs Period Temp Pulse Resp BP Sys/Jeffries Pulse Ox Last 24 Hr 98 F-98.7 F 62-77 18-20 95-121/49-72 98 PHYSICAL EXAM GENERAL: AAOx3 NAD EYES: EOMI Sclera Clear NECK: Supple LUNGS: Distant breath sounds at bases HEART: RRR S1S2 ABDOMEN: Nondistended nontender no guarding or rigidity EXTREMITIES: No pedel edema appreciated, No calf tenderness PSYCH: Normal mood, normal affect. SKIN: Warm, dry, normal turgor, no rashes or lesions noted LABS Laboratory Results - last 24 hr 12/03/18 12/04/18 12/04/18 17:00 06:22 06:22 WBC 5.4 RBC 4.55 Hgb 13.6 Hct 40.8 MCV 89.7 MCH 30.0 MCHC 33.4 RDW 14.7 Plt Count 203 MPV 10.7 PT with INR INR PTT (Actin FS) 75.1 H 100.9 H POC Glucometer 12/04/18 12/04/18 06:22 12:14 WBC RBC Hgb Hct MCV MCH MCHC RDW Plt Count MPV PT with INR 14.60 H INR 1.23 H PTT (Actin FS) POC Glucometer 94 HOSPITAL COURSE: Date of Admission:11/24/18 Pt is a 58 y/o lady w/ a past medical history of " tachycardia" who presented to the hospital c/o acute onset SOB and palpitations. Pt underwent routine labs which revealed elevated troponin levels, reaching a peak of 0.66. Pt was subsequently started on an I.V Heparin protocol as well as ASA 325, Lipitor, and loaded w/ 600 mg plavix. CTA Chest revealed cardiomegaly and patchy groundglass opacification consistent w/ CHF as well as bibasilar consolidation/ atelectasis. Please see report for further details. Pt was ultimately placed on spirinolactone, LEONEL-I, Lasix, and carvedilol. Echocardiogram revealed an ejection fraction of 20-25% with severe global hypokinesis of LV as well as an apical thrombus. Pt eventually underwent a Lexiscan which revealed a " moderate zone of inferior, inferolateral, inferoapical reversible defect compatible with mild intensity ischemia. Severely reduced LVEF of 22% post lexiscan and 23% at rest. " Pt was transferred to [facility] for a cardiac catheterization with Dr Herron. Minutes to complete discharge: 35 Discharge Summary Reason For Visit: ACUTE CONGESTIVE HEART FAILURE Condition: Guarded - Instructions Disposition: TRANSFER ACUTE CARE/OTHER HOSP - Home Medications Comprehensive Discharge Medication List: Ambulatory Orders Omeprazole 40 mg PO BID 11/25/18 Acetaminophen [Tylenol .Regular Strength -] 650 mg PO Q6H PRN tablet 12/04/18 Aspirin Coated [Ecotrin -] 81 mg PO DAILY tablet.ec 12/04/18 Atorvastatin Ca [Lipitor] 80 mg PO HS tablet 12/04/18 Carvedilol [Coreg -] 25 mg PO BID tablet 12/04/18 Furosemide [Lasix -] 40 mg PO DAILY tablet 12/04/18 Heparin - 1,000 unit IVPUSH PRN PRN vial 12/04/18 Heparin - 5,000 unit IVPUSH PRN PRN vial 12/04/18 Nicotine Patch [Nicoderm Patch -] 21 mg TD DAILY patch 12/04/18 Quinapril HCl [Accupril -] 5 mg PO DAILY tablet 12/04/18 Sodium Chloride Nasal [place] [[place] Nasal [place] -] 2 spray NS BID PRN spray 12/04/18 Spironolactone [Aldactone -] 25 mg PO DAILY tablet 12/04/18 This patient is new to me today: No Emergency Visit: Yes ED Registration Date: 11/24/18 Care time: The patient presented to the Emergency Department on the above date and was hospitalized for further evaluation of their emergent condition. Critical Care patient: No - Discharge Referral Referred to [facility] No
--- NOTE | 2018-12-04 19:46 | PN ---
Teaching Attending Note Name of Resident: Marv Sams ATTENDING PHYSICIAN STATEMENT I saw and evaluated the patient. I reviewed the resident's note and discussed the case with the resident. I agree with the resident's findings and plan as documented. SUBJECTIVE: Patient is comfortable with no acute distress. OBJECTIVE: Vital Signs Temperature 98 F 12/04/18 09:00 Pulse Rate 68 12/04/18 09:00 Respiratory Rate 18 12/04/18 09:00 Blood Pressure 104/52 L 12/04/18 09:00 O2 Sat by Pulse Oximetry (%) 98 12/04/18 09:00 GENERAL: AAOx3 NAD EYES:extraocular movements intact, sclera anicteric, conjunctiva clear. NECK: Supple Trachea midline LUNGS: DEC BS @ Bases. Good inspiratory effort HEART: RRR S1S2 ABDOMEN: NDNT No HSM EXTREMITIES: No pedal edema appreciated PSYCH: Normal mood, normal affect. SKIN: Warm, dry, normal turgor, no rashes or lesions noted CBCD WBC 5.4 K/mm3 (4.0-10.0) 12/04/18 06:22 RBC 4.55 M/mm3 (3.60-5.2) 12/04/18 06:22 Hgb 13.6 GM/dL (10.7-15.3) 12/04/18 06:22 Hct 40.8 % (32.4-45.2) 12/04/18 06:22 MCV 89.7 fl (80-96) 12/04/18 06:22 MCHC 33.4 g/dl (32.0-36.0) 12/04/18 06:22 RDW 14.7 % (11.6-15.6) 12/04/18 06:22 Plt Count 203 K/MM3 (134-434) 12/04/18 06:22 MPV 10.7 fl (7.5-11.1) 12/04/18 06:22 CMP Sodium 137 mmol/L (136-145) 12/03/18 05:30 Potassium 4.6 mmol/L (3.5-5.1) 12/03/18 05:30 Chloride 104 mmol/L (98-107) 12/03/18 05:30 Carbon Dioxide 28 mmol/L (21-32) 12/03/18 05:30 Anion Gap 5 MMOL/L (8-16) L 12/03/18 05:30 BUN 23 mg/dL (7-18) H 12/03/18 05:30 Creatinine 1.0 mg/dL (0.55-1.3) 12/03/18 05:30 Creat Clearance w eGFR 56.75 (>60) 12/03/18 05:30 Random Glucose 88 mg/dL (74-106) 12/03/18 05:30 Calcium 8.9 mg/dL (8.5-10.1) 12/03/18 05:30 Total Bilirubin 0.5 mg/dL (0.2-1) 11/26/18 06:00 AST 32 U/L (15-37) 11/26/18 06:00 ALT 59 U/L (13-61) 11/26/18 06:00 Alkaline Phosphatase 116 U/L (45-117) 11/26/18 06:00 Total Protein 6.9 g/dl (6.4-8.2) 11/26/18 06:00 Albumin 3.7 g/dl (3.4-5.0) 11/26/18 06:00 CARDIAC ENZYMES Creatine Kinase 67 U/L (26-192) 11/26/18 06:00 Troponin I 0.63 ng/ml (0.00-0.05) H* 11/25/18 09:00 Home Medications Medication Instructions Recorded Omeprazole 40 mg PO BID 11/25/18 Acetaminophen [Tylenol .Regular 650 mg PO Q6H PRN tablet 12/04/18 Strength -] Aspirin Coated [Ecotrin -] 81 mg PO DAILY tablet.ec 12/04/18 Atorvastatin Ca [Lipitor] 80 mg PO HS tablet 12/04/18 Carvedilol [Coreg -] 25 mg PO BID tablet 12/04/18 Furosemide [Lasix -] 40 mg PO DAILY tablet 12/04/18 Heparin - 1,000 unit IVPUSH PRN PRN vial 12/04/18 Heparin - 5,000 unit IVPUSH PRN PRN vial 12/04/18 Nicotine Patch [Nicoderm Patch -] 21 mg TD DAILY patch 12/04/18 Quinapril HCl [Accupril -] 5 mg PO DAILY tablet 12/04/18 Sodium Chloride Nasal [place] [[place] 2 spray NS BID PRN spray 02/15/19 [place] Nasal [place] -] Spironolactone [Aldactone -] 25 mg PO DAILY tablet 12/04/18 FLu swab: negative. ASSESSMENT AND PLAN: Patient is a 58yo female with Pmhx of tachycardia, who presented who presented with SOB and was found to have acute CHF exacerbation # NSTEMI: continue cont ASA, statin, coreg, and ACEI , going to [place] [facility] for L and R heart cath due to ischemia on stress test today. # Acute systolic CHF exacerbation: improved. on Lasix continue , continue Coreg , ACEI, spironolactone , can' t r/o an apical thrombus. on heparin drip , coumadin on hold. # New onset PAfib: cont with coreg . Hold coumadin since inr is 4.4 , # Nicotine dependence: nicotine patch tx to [place] [facility] for cath.today.
== END 2018-12-04 13:23 | disposition short-term general hospital (02) | DRG 194 ==
LOC: JER 21:20 → JERBED 22:31 → J4W 11-25 11:38
PROVIDERS: ADMIT Internal Medicine; ATTEND Internal Medicine
PROC: 5A09357 Assistance with Respiratory Ventilation, Less than 24 Consecutive Hours, Continuous Positive Airway Pressure (ICD-10-PCS; principal; 2018-11-24)
DX: I11.0 Hypertensive heart disease with heart failure (principal); I50.23 Acute on chronic systolic (congestive) heart failure; I21.4 Non-ST elevation (NSTEMI) myocardial infarction; J96.01 Acute respiratory failure with hypoxia; F41.8 Other specified anxiety disorders; E78.5 Hyperlipidemia, unspecified; F17.210 Nicotine dependence, cigarettes, uncomplicated; R74.8 Abnormal levels of other serum enzymes; I51.3 Intracardiac thrombosis, not elsewhere classified; I42.9 Cardiomyopathy, unspecified; I24.8 Other forms of acute ischemic heart disease; J98.11 Atelectasis; I48.0 Paroxysmal atrial fibrillation; I47.1 Supraventricular tachycardia
CPT/HCPCS: 36415; 36600; 71045-TC-FY; 71275-TC; 78452-TC; 80048; 80053; 80061; 81003; 81015; 82375; 82550; 82803; 82962; 83036; 83050; 83721; 83735; 83880; 84100; 84443; 84484; 85025; 85027; 85379; 85610; 85730; 87804; 93005; 93010; 93017; 93306-TC; 94660; 99283-25; A9502; J1644; J2785